=== PATIENT | male | born 1970 | race Caucasian/White ===

== ENCOUNTER 2018-03-26 07:34 | Outpatient (CLI) | payer MEDICARE ==
--- NOTE | 2018-03-26 10:09 | ULT ---
SONOGRAM ABDOMEN COMPLETE: Date: 03/26/18 HISTORY: Abdominal pain. Hepatomegaly. FINDINGS: Gallbladder is surgically absent. Common duct is 0.5 cm. Liver is diffusely echogenic and measures up to 27.3 cm. No free fluid. Spleen is 20.6 cm. Cysts arise from the cortex of the kidneys. Visualized portions of the abdominal aorta and IVC are un remarkable. Pancreas is partially obscured. IMPRESSION: 1. Hepatic steatosis. Hepatomegaly. 2. Severe splenomegaly may be related to portal venous hypertension. 3. Status post cholecystectomy. No evidence of acute biliary obstruction. POS: [facility]
== END 2018-03-26 07:35 | disposition home or self-care (01) ==
LOC: SCSULT 07:34
PROVIDERS: ATTEND Family Medicine
DX: R16.2 Hepatomegaly with splenomegaly, not elsewhere classified (principal); K76.0 Fatty (change of) liver, not elsewhere classified; Z90.49 Acquired absence of other specified parts of digestive tract
CPT/HCPCS: 76700

== ENCOUNTER 2019-01-03 10:04 | Outpatient (CLI) | payer MEDICARE, OTHER ==
--- NOTE | 2019-01-03 12:12 | ULT ---
SOFT TISSUE ULTRASOUND OF THE LEFT GROIN: HISTORY: Lymphadenopathy. COMPARISON: None. TECHNIQUE: Sagittal and transverse imaging of the left groin is performed. FINDINGS: There are multiple enlarged lymph nodes. The largest lymph node measures 2.4 x 0.8 a 1.9 cm. The se cond largest lymph node measures 1.5 x 1.6 x 1.6 cm. Additional smaller lymph nodes are noted. There is no evidence of an abscess or suspicious fluid collection. IMPRESSION: At least 4 separate left inguinal lymph nodes. The largest lymph node is described above. POS: [facility]
== END 2019-01-03 10:05 | disposition home or self-care (01) ==
LOC: SCSULT 10:04
PROVIDERS: ATTEND Internal Medicine Hematology & Oncology
DX: R59.0 Localized enlarged lymph nodes (principal); N18.9 Chronic kidney disease, unspecified; D63.1 Anemia in chronic kidney disease; D69.59 Other secondary thrombocytopenia
CPT/HCPCS: 76999

== ENCOUNTER 2019-01-22 11:38 | Outpatient (CLI) | payer MEDICARE, OTHER ==
[2019-01-22 12:06] LABS: #Eosinphils 0.1 thou/uL (0.0-0.7); #Lymphocytes 1.8 thou/uL (1.20-3.40); #Monocytes 0.5 thou/uL (0.11-0.59); #Neutrophils 4.3 thou/uL (1.40-6.50); %Basophils 0.7 % (0.0-1.0); %Eosinophils 1.7 % (0.0-10.0); %Lymphocytes 26.7 % (21.0-51.0); %Monocytes 7.4 % (0.0-10.0); %Neutrophils 63.5 % (42.0-75.0); Hemoglobin 11.5 g/dL (14.0-18.0); Mean Corpuscular HGB CONC 33.8 g/dL (32.0-36.0); Mean Corpuscular Hemoglobin 29.2 pg (27.0-31.0); Mean Corpuscular Volume 86.5 fL (78.0-98.0); Mean Platelet Volume 5.9 fL (7.4-10.4); Platelet Count 161 thou/uL (130-400); RBC Distribution Width 13.7 % (11.5-14.5); Red Blood Cell (RBC) Count 3.95 mill/uL (4.70-6.10); White Blood Cell (WBC) Count 6.7 thou/uL (4.8-10.8)
[2019-01-22 12:29] LABS: Anion Gap 10 mmol/L (10-20); BUN (Urea Nitrogen) 32 mg/dL (8.9-20.6); Calc. Creatinine Clearance 0 mL/min (70-130); Calcium 8.8 mg/dL (7.8-10.44); Carbon Dioxide 26 mmol/L (22-29); Chloride 107 mmol/L (98-107); Estimated GFR-MDRD 22; Glucose 82 mg/dL (70-105); Potassium 4.7 mmol/L (3.5-5.1); Sodium 138 mmol/L (136-145)
--- NOTE | 2019-01-22 18:46 | EKG ---
Test Reason : Blood Pressure : / mmHG Vent. Rate : 070 BPM Atrial Rate : 070 BPM P-R Int : 238 ms QRS Dur : 102 ms QT Int : 418 ms P-R-T Axes : 074 082 157 degrees QTc Int : 451 ms Sinus rhythm with 1st degree A-V block Inferior infarct (cited on or before 16-JUN-2009) Cannot rule out Anterior infarct , age undetermined Abnormal ECG When compared with ECG of 18-JUN-2009 02:34, Significant changes have occurred Confirmed by DR. Tanja ROBERTSON (3) on 01/22/2019 6:46:18 PM Referred By: SHAE Confirmed By:DR. Tanja ROBERTSON
== END 2019-01-22 11:39 | disposition home or self-care (01) ==
LOC: LABBT 11:38
PROVIDERS: ATTEND Specialist
DX: Z01.818 Encounter for other preprocedural examination (principal); R59.1 Generalized enlarged lymph nodes
CPT/HCPCS: 80048; 85025; 93005; 93010

== ENCOUNTER 2019-01-30 08:06 | Day surgery (SDC) | payer OTHER, MEDICARE ==
[2019-01-22 11:57] VITALS: BMI 41.5
[2019-01-30] MEDS ORDERED: Ketorolac Tromethamine 30 MG/ML VIAL ONE (08:57)
[2019-01-30] MEDS ORDERED: Bupivacaine/Epinephrine 0.25% 30 ML VIAL ONE (09:34)
[2019-01-30] MEDS ORDERED: Fentanyl 100 MCG/2 ML VIAL ONE (09:35)
[2019-01-30] MEDS ORDERED: Midazolam HCl 2 mg/2 ml Vial ONE (09:47)
[2019-01-30] MEDS ORDERED: PROPOFOL 200 MG/20 ML VIAL ONE (09:56)
[2019-01-30] MEDS ORDERED: PHENYLEPHRINE-NS 100 MCG/ML 10 ML SYRINGE ONE (09:56)
[2019-01-30] MEDS ORDERED: Ondansetron PF 4 MG/2 ML Vial ONE (09:56)
[2019-01-30] MEDS ORDERED: Glycopyrrolate 0.2 MG/ML 5 ML SYRINGE ONE (09:56)
[2019-01-30] MEDS ORDERED: HYDROcodone/Acetaminophen 5/325 mg Tablet ONE (12:12)
--- NOTE | 2019-01-31 02:09 | OP ---
DATE OF PROCEDURE: 01/30/2019 PREOPERATIVE DIAGNOSIS: Left inguinal lymphadenopathy. POSTOPERATIVE DIAGNOSIS: Left inguinal lymphadenopathy. OPERATION PERFORMED: Left groin ultrasound-guided excisional lymph node biopsy. ANESTHESIA: General with laryngeal mask airway and local using 0.25% Marcaine with epinephrine. INDICATIONS: The patient is a 48-year-old white male. He has a chronically swollen left leg following his coronary artery bypass surgery several years ago. He was recently evaluated and found to have significant inguinal lymphadenopathy. I was asked to evaluate him in regard to this. The patient is significantly obese, so palpation is difficult. I am, however, with ultrasound able to see a superficial lymph node just below the inguinal crease that is close to 5 cm in maximum dimension. I recommended excisional biopsy of this. DESCRIPTION OF OPERATION: Informed consent was obtained. The patient was taken to the operating room where general anesthesia was obtained with the patient in supine position. His abdomen was taped up to hold the pannus off the operative site. Right groin was trimmed of hair, prepped with ChloraPrep, draped in sterile fashion. Ultrasound was utilized to exactly maeve the location of the enlarged lymph node. Local anesthetic was generously infiltrated using 0.25% Marcaine with epinephrine. A transverse incision was created over the enlarged lymph node. Dissection was carried through the skin and subcutaneous tissue directly down onto the lymph node. It was carefully dissected circumferentially. All investing lymphatics were divided between clamps and 3-0 silk ties. The lymph node was removed and passed off the field and submitted for lymphoma protocol. The wound was closed in layers with 3-0 Vicryl. Skin edges were approximated with 4-0 subcuticular Monocryl. Dermabond was placed externally. There were no complications. The patient tolerated the procedure well and was taken to the recovery room in stable condition. Job ID: [id number]
== END 2019-01-30 12:39 | disposition home or self-care (01) ==
LOC: SDC 08:06
PROVIDERS: ATTEND Specialist
PROC: 07BJ3ZX Excision of Left Inguinal Lymphatic, Percutaneous Approach, Diagnostic (ICD-10-PCS; principal; 2019-01-30)
DX: R59.0 Localized enlarged lymph nodes (principal); I11.0 Hypertensive heart disease with heart failure; I50.9 Heart failure, unspecified; I25.10 Atherosclerotic heart disease of native coronary artery without angina pectoris; E78.2 Mixed hyperlipidemia; Z79.82 Long term (current) use of aspirin; Z79.899 Other long term (current) drug therapy; Z88.2 Allergy status to sulfonamides; Z88.5 Allergy status to narcotic agent; Z88.8 Allergy status to other drugs, medicaments and biological substances; Z95.1 Presence of aortocoronary bypass graft
CPT/HCPCS: 88184; 88307; 88341; 88342; J0131; J1885; J2250; J3010

== ENCOUNTER 2019-02-13 10:27 | Day surgery (SDC) | payer OTHER, MEDICARE ==
[2019-02-12 10:41] VITALS: BMI 40.0
[2019-02-13] MEDS ORDERED: Lidocaine 1% PF 5 ML VIAL ONE (11:49)
[2019-02-13] MEDS ORDERED: PROPOFOL 200 MG/20 ML VIAL ONE (11:49)
[2019-02-13] MEDS ORDERED: Oxymetazoline HCl 0.05% ( 15 ML ) ONE (12:32)
[2019-02-13 13:15] LABS: Troponin I 0.043 ng/mL (< 0.028)
--- NOTE | 2019-02-13 13:47 | OP ---
DATE OF PROCEDURE: 02/13/2019 PLY BANDER SURGEON: None. PROCEDURES PERFORMED: Colonoscopy with biopsies and snare polypectomy. INDICATION: Rectal bleeding. This is the patient's first colonoscopy. MEDICATIONS: See Anesthesia record. FINDINGS: After discussion of the risks, benefits, and alternatives of the procedure, informed consent was obtained and witnessed. Pre-endoscopic cardiopulmonary examination was satisfactory. Time-out was performed before sedation was achieved. Sedation was achieved with Anesthesia assistance in the endoscopy unit. A digital rectal exam was performed, which was unremarkable. Pentax adult colonoscope was inserted into the anus and passed forward to the cecum in the usual fashion. The cecal base was identified by the appendiceal orifice as well as the ileocecal valve. The terminal ileum was intubated. Within the terminal ileum. There were several patches of mild erythema and a single small nonbleeding erosion. Biopsies were obtained from this area of the terminal ileum for histology. The colonoscope was then slowly withdrawn in a gradual circumferential manner with careful examination of the entire colonic mucosa. The quality of the prep was adequate. There was some diffuse diverticulosis throughout the colon, particularly in the ascending colon and the sigmoid colon. Within the sigmoid colon, there is some patchy [id number] erythema with no evidence of any ulcerations or erosions, and an area of heavy diverticulosis. I did obtain biopsies from this area of the sigmoid colon for histology. In the ascending colon, there is a single polyp measuring about 1 cm in diameter. This was completely removed with hot snare and retrieved for pathology. There was another smaller ascending colon polyp measuring about 7 mm in diameter, which was also completely removed with hot snare and retrieved for pathology. In the descending colon, there was a sessile polyp measuring about 5 mm in diameter, completely removed with hot snare and retrieved for pathology. In the sigmoid colon, there was another polyp measuring about 4 mm in diameter, and this was also completely removed with hot snare and retrieved for pathology. Retroflexion in the rectum demonstrated internal hemorrhoids. The colonoscope was then completely withdrawn, and the patient allowed to recover. The patient tolerated the procedure well. There were no immediate postprocedure complications. IMPRESSION: 1. Mild patchy erythema in the terminal ileum, biopsied. 2. Mild patchy sigmoid colon erythema, biopsied. 3. Diverticulosis throughout the colon, particularly heavy in the sigmoid colon. 4. Two ascending colon polyps measuring up to 1 cm in diameter, completely removed with hot snare and retrieved for pathology. 5. One descending colon polyp measuring about 7 mm in diameter, completely removed with hot snare and retrieved for pathology. 6. One sigmoid colon polyp measuring 4 mm in diameter, completely removed with hot snare and retrieved for pathology. 7. Internal hemorrhoids. RECOMMENDATION: 1. Follow up pathology on the colon polyps as well as terminal ileum sigmoid biopsies. 2. Repeat colonoscopy to be determined based on pathology results. 3. The patient can resume his Plavix tomorrow. 4. Conservative hemorrhoidal measures including a stool softeners as needed. His intermittent rectal bleeding does represent a bleeding from internal hemorrhoids. 5. He can follow up in the GI clinic on an as-needed basis. Job ID: [id number]
[2019-02-13 14:48] LABS: CKMB 2.7 ng/mL (0-6.6)
--- NOTE | 2019-02-13 21:29 | EKG ---
Test Reason : CHEST PAIN Blood Pressure : / mmHG Vent. Rate : 075 BPM Atrial Rate : 075 BPM P-R Int : 256 ms QRS Dur : 100 ms QT Int : 410 ms P-R-T Axes : 073 020 128 degrees QTc Int : 457 ms Sinus rhythm with 1st degree A-V block Inferior infarct (cited on or before 16-JUN-2009) T wave abnormality, consider lateral ischemia * ACUTE HI * Consider right ventricular involvement in acute inferior infarct Abnormal ECG When compared with ECG of 22-JAN-2019 11:45, Questionable change in QRS axis T wave inversion no longer evident in Inferior leads T wave inversion no longer evident in Anterior leads Confirmed by KEIRA MACKAY, DR. Kaur (4) on 02/13/2019 9:28:45 PM Referred By: CASE Confirmed By:DR. Vincent CROCKETT MD
--- NOTE | 2019-02-13 21:31 | EKG ---
Test Reason : REPEAT Blood Pressure : / mmHG Vent. Rate : 072 BPM Atrial Rate : 072 BPM P-R Int : 266 ms QRS Dur : 104 ms QT Int : 422 ms P-R-T Axes : 076 030 133 degrees QTc Int : 462 ms Sinus rhythm with 1st degree A-V block Inferior infarct (cited on or before 16-JUN-2009) T wave abnormality, consider lateral ischemia * ACUTE AL * Consider right ventricular involvement in acute inferior infarct Abnormal ECG When compared with ECG of 13-FEB-2019 12:38, (Unconfirmed) No significant change was found Confirmed by KEIRA MACKAY, DR. Kaur (4) on 02/13/2019 9:30:28 PM Referred By: Laura WEBSTER Confirmed By:DR. Vincent CROCKETT MD
== END 2019-02-13 15:13 | disposition home or self-care (01) ==
LOC: SDC 10:27
PROVIDERS: ATTEND Internal Medicine
PROC: 0DBN8ZX Excision of Sigmoid Colon, Via Natural or Artificial Opening Endoscopic, Diagnostic (ICD-10-PCS; principal; 2019-02-13)
PROC: 0DBK8ZX Excision of Ascending Colon, Via Natural or Artificial Opening Endoscopic, Diagnostic (ICD-10-PCS; principal; 2019-02-13)
PROC: 0DBM8ZX Excision of Descending Colon, Via Natural or Artificial Opening Endoscopic, Diagnostic (ICD-10-PCS; principal; 2019-02-13)
PROC: 0DBB8ZX Excision of Ileum, Via Natural or Artificial Opening Endoscopic, Diagnostic (ICD-10-PCS; principal; 2019-02-13)
DX: K64.8 Other hemorrhoids (principal); D12.2 Benign neoplasm of ascending colon; D12.4 Benign neoplasm of descending colon; K52.9 Noninfective gastroenteritis and colitis, unspecified; K63.5 Polyp of colon; K57.30 Diverticulosis of large intestine without perforation or abscess without bleeding; I13.0 Hypertensive heart and chronic kidney disease with heart failure and stage 1 through stage 4 chronic kidney disease, or unspecified chronic kidney disease; N18.9 Chronic kidney disease, unspecified; I50.9 Heart failure, unspecified; I25.10 Atherosclerotic heart disease of native coronary artery without angina pectoris; I25.2 Old myocardial infarction; E78.00 Pure hypercholesterolemia, unspecified; M19.90 Unspecified osteoarthritis, unspecified site; F17.210 Nicotine dependence, cigarettes, uncomplicated; E66.9 Obesity, unspecified; Z68.41 Body mass index [BMI] 40.0-44.9, adult; G47.33 Obstructive sleep apnea (adult) (pediatric); Z80.0 Family history of malignant neoplasm of digestive organs; Z90.49 Acquired absence of other specified parts of digestive tract; Z95.1 Presence of aortocoronary bypass graft; Z88.5 Allergy status to narcotic agent; Z88.0 Allergy status to penicillin; Z88.2 Allergy status to sulfonamides; Z88.8 Allergy status to other drugs, medicaments and biological substances; Z79.02 Long term (current) use of antithrombotics/antiplatelets; Z79.82 Long term (current) use of aspirin; Z79.899 Other long term (current) drug therapy
CPT/HCPCS: 36415; 82553; 84484; 88305; 93005; 93010; J2001; J2704

== ENCOUNTER 2019-02-24 08:57 | Outpatient (CLI) | payer OTHER, MEDICARE ==
--- NOTE | 2019-02-24 13:21 | CT ---
Noncontrast enhanced images abdomen and pelvis. HISTORY: Gross hematuria. Noncontrast enhanced CT images of the abdomen and pelvis demonstrate the lung bases to be unremarkabl e. Extensive coronary artery calcifications seen. Sternotomy wires seen. The the liver demonstrates no definite evidence of masses. There is splenomegaly seen. The spleen has three-dimensional measurements of 10.6 x 17.6 x 19.3 cm. The pancreas is unremarkable. Adrenal glands unremarkable. Multiple bilateral renal exophytic lesion seen possibly presenting cortical cysts. The patient does a ppear to be have a midpole right renal hyperdense cyst. Correlate with renal sonography for additional characterization of both kidneys. The small bowel is unremarkable. Extensive colonic diverticulosis is present. There is an umbilical hernia with herniation of intraperitoneal fat. This has a hernial defect size o f approximately 13 mm. Urinary bladder is thickened concerning for possible cystitis. IMPRESSION: 1: Splenomegaly. 2: Numerous renal cortical lesions possibly representing cysts further workup using sonography is how ever recommended. 3: Abnormal thickening of the urinary bladder concerning for cystitis. 4:Extensive colonic diverticulosis.
== END 2019-02-24 08:58 | disposition home or self-care (01) ==
LOC: SCSCT 08:57
PROVIDERS: ATTEND Urology
DX: R31.0 Gross hematuria (principal); R16.1 Splenomegaly, not elsewhere classified; K57.30 Diverticulosis of large intestine without perforation or abscess without bleeding
CPT/HCPCS: 74176

== ENCOUNTER 2019-04-09 07:54 | Outpatient (CLI) | payer MEDICARE, OTHER ==
--- NOTE | 2019-04-09 10:06 | ULT ---
RENAL ULTRASOUND: Date: 04-09-19 Provided Clinical History: Gross hematuria, renal lesion. FINDINGS: Comparison is made with CDT examination of 02-24-19. Right kidney measures about 12.8 x 6.6 x 6.7 cm and demonstrates no evidence for hydronephrosis or so lid mass. Simple appearing cysts are seen, the largest of which measures about 2 cm at the mid portio n. Left kidney measures about 12.8 x 7.8 x 7.1 cm and demonstrates no evidence for hydronephrosis or chiquita id mass. Simple cysts are seen, the largest of which is located at the mid portion of the left kidney , exophytically measures about 2.9 cm. Foci of increased echogenicity are seen involving the renal parenchyma bilaterally, nonspecific. No r enal calculi redemonstrated from the prior CT examination. The urinary bladder is incompletely distended and not well evaluated with suggestion of bladder wall thickening. IMPRESSION: 1. No evidence for hydronephrosis or solid mass. POS: [facility]
== END 2019-04-09 07:55 | disposition home or self-care (01) ==
LOC: SCSULT 07:54
PROVIDERS: ATTEND Urology
DX: N28.9 Disorder of kidney and ureter, unspecified (principal); R31.0 Gross hematuria
CPT/HCPCS: 76770

== ENCOUNTER 2019-04-14 17:51 | Inpatient (IN) | payer OTHER, MEDICARE ==
[2019-04-14 18:48] LABS: #Eosinphils 0.1 thou/uL (0.0-0.7); #Lymphocytes 1.2 thou/uL (1.20-3.40); #Monocytes 0.5 thou/uL (0.11-0.59); #Neutrophils 5.9 thou/uL (1.40-6.50); %Eosinophils 0.8 % (0.0-10.0); %Lymphocytes 15.4 % (21.0-51.0); %Monocytes 6.1 % (0.0-10.0); %Neutrophils 77.7 % (42.0-75.0); Hemoglobin 8.7 g/dL (14.0-18.0); Mean Corpuscular HGB CONC 32.6 g/dL (32.0-36.0); Mean Corpuscular Hemoglobin 27.7 pg (27.0-31.0); Mean Platelet Volume 6.8 fL (7.4-10.4); Platelet Count 186 thou/uL (130-400); RBC Distribution Width 13.8 % (11.5-14.5); Red Blood Cell (RBC) Count 3.16 mill/uL (4.70-6.10); White Blood Cell (WBC) Count 7.5 thou/uL (4.8-10.8)
[2019-04-14 19:11] LABS: ALT (SGPT) 7 U/L (8-55); AST (SGOT) 9 U/L (5-34); Albumin 2.9 g/dL (3.5-5.0); Alkaline Phosphatase 37 U/L (40-150); Anion Gap 13 mmol/L (10-20); BUN (Urea Nitrogen) 63 mg/dL (8.9-20.6); Bilirubin, Total 0.4 mg/dL (0.2-1.2); Calc. Creatinine Clearance 0 mL/min (70-130); Calcium 8.6 mg/dL (7.8-10.44); Carbon Dioxide 23 mmol/L (22-29); Chloride 99 mmol/L (98-107); Estimated GFR-MDRD 11; Globulin 3.3 g/dL (2.4-3.5); Glucose 123 mg/dL (70-105); Lipase 26 U/L (8-78); Potassium 4.1 mmol/L (3.5-5.1); Protein, Total 6.2 g/dL (6.0-8.3); Sodium 131 mmol/L (136-145)
[2019-04-14 20:26] LABS: Bilirubin Negative (Negative); Blood, Urine Negative (Negative); Clarity CLOUDY (Clear); Glucose, Urine (Dipstick) Negative (Negative); Leukocyte Negative (Negative); Nitrite Negative (Negative); Protein, Urine (Dipstick) 100 mg/dL (Neg-Trace); Specific Gravity, Urine 1.013 (1.002-1.036)
[2019-04-14 20:29] LABS: Bacteria/HPF None Seen HPF (None Seen); Hyaline Casts/LPF 4-6 HYALINE CAST LPF (0-3 Hyaline); Pathc Cast-AUWi Flag 0.95 (0-2.49); RBC/HPF None Seen HPF (0-3); Squamous Epithelial 0-3 HPF (0-3); WBC/HPF 0-3 HPF (0-3); Yeast-AUWi Flag 117.5 (0-25.0)
[2019-04-14 20:36] LABS: Crystals/HPF 1+ AMORPH URATES HPF (Negative); Yeast-All Forms None Seen HPF (None Seen)
[2019-04-14] MEDS ORDERED: Sodium Chloride 0.9% 1,000 ML IV SCH (22:30)
--- NOTE | 2019-04-15 02:17 | HP ---
HISTORY OF PRESENT ILLNESS: This is a 48-year-old obese male who is blind, who presents with a 2-week history of nausea, vomiting, and diarrhea, which has become particularly worse over the past 4-5 days. He has had very minimal intake. Lately, he has been having quite a bit of nausea and vomiting. Food goes straight through him as reported by the . He is not tolerating any Boost or Gatorade. He saw Dr. Donte Negron this morning and obtained labs, which revealed marked anemia with worsening creatinine. So, he was seen in the ER this evening and his creatinine went even higher. He has been followed by Dr. Blanco for BPH. He has had cystoscopy this year, which has been unremarkable. He has also had a colonoscopy earlier this year in February, which showed some areas of erythema. The patient complains of diffuse abdominal crampiness. No reported fever. There are no other ill family members in the family. PAST MEDICAL HISTORY: Multiple sclerosis, heart disease, status post [place], blindness, headaches, hypertension, hyperlipidemia, and asthma. PAST SURGICAL HISTORY: Exploratory throat surgery in 1997. Cardiac stents x3 in 2004, triple bypass in August 2000, colonoscopy on February 13, 2019, gallbladder surgery 2014, lymph node biopsy by Dr. Mckeon earlier this year. FAMILY HISTORY: Father with heart disease and prostate cancer. Mother with heart disease and thyroid disease. Multiple other family members with heart disease, hyperlipidemia, and hypertension. SOCIAL HISTORY: He has a 30-year tobacco history. He has smoked 1 pack per day. I believe he continues to smoke. He does not drink. He is single. He has children. MEDICATIONS: Aspirin 325 daily, fenofibrate 145 daily, Coreg 25 two tabs b.i.d., allopurinol 100 daily, amlodipine 5 daily, Plavix 75 daily, lisinopril 40 daily, Lyrica 150 t.i.d., Crestor 20 daily, Flexeril 10 p.r.n., Lasix 40 daily, and potassium 20 daily. ALLERGIES: SULFA, MORPHINE, AND PENICILLIN. REVIEW OF SYSTEMS: As above. PHYSICAL EXAMINATION: VITAL SIGNS: Stable, afebrile at this time. GENERAL: The patient has moderate abdominal tenderness. HEENT: Relatively clear except the patient is blind. NECK: Supple. HEART: Regular rate and rhythm. LUNGS: Clear. ABDOMEN: Morbidly obese. EXTREMITIES: Left leg with stasis dermatitis from his vein harvesting for bypass. Right lower extremity normal. No edema. LABORATORY DATA: White count 7.5, H and H 8.7 and 26.8, platelet 186. Sodium 131, potassium 4.1, creatinine 5.69, glucose 123, BUN is 63. Liver functions normal. Lipase 26. Albumin 2.9. Urine specific gravity 1.013, positive for proteins. Renal ultrasound unremarkable on 04/09/2019. Abdominal pelvic CT relatively benign on 02/24/2019. ASSESSMENT: 1. Acute gastroenteritis. 2. Severe dehydration. 3. Acute kidney disease on chronic kidney disease. 4. Blindness. 5. Anemia, probably anemia of chronic disease. 6. Coronary artery disease status post bypass. 7. 30 year tobacco history. PLAN: 1. Hydrate with normal saline. 2. Consult Nephrology in the a.m. 3. Dr. Donte Negron to see in the a.m. 4. CBC, comprehensive in the a.m. 5. 50/12.5 IM q.4h. p.r.n. abdominal pain. 6. Clear liquids. 7. Stool culture, O and P. 8. Recheck labs in the a.m. Job ID: [id number]
[2019-04-15 04:02] LABS: #Eosinphils 0.2 thou/uL (0.0-0.7); #Lymphocytes 1.3 thou/uL (1.20-3.40); #Monocytes 0.7 thou/uL (0.11-0.59); #Neutrophils 6.9 thou/uL (1.40-6.50); %Basophils 0.3 % (0.0-1.0); %Lymphocytes 13.8 % (21.0-51.0); %Monocytes 7.3 % (0.0-10.0); %Neutrophils 76.5 % (42.0-75.0); Hemoglobin 8.9 g/dL (14.0-18.0); Mean Corpuscular HGB CONC 32.9 g/dL (32.0-36.0); Mean Corpuscular Volume 85.1 fL (78.0-98.0); Mean Platelet Volume 7.3 fL (7.4-10.4); Platelet Count 227 thou/uL (130-400); Red Blood Cell (RBC) Count 3.16 mill/uL (4.70-6.10)
[2019-04-15 04:23] LABS: ALT (SGPT) Less than 7 U/L (8-55); AST (SGOT) 9 U/L (5-34); Alkaline Phosphatase 38 U/L (40-150); Anion Gap 16 mmol/L (10-20); BUN (Urea Nitrogen) 64 mg/dL (8.9-20.6); Bilirubin, Total 0.4 mg/dL (0.2-1.2); Calc. Creatinine Clearance 0 mL/min (70-130); Calcium 8.6 mg/dL (7.8-10.44); Carbon Dioxide 18 mmol/L (22-29); Chloride 101 mmol/L (98-107); Estimated GFR-MDRD 11; Globulin 3.4 g/dL (2.4-3.5); Glucose 94 mg/dL (70-105); Protein, Total 6.4 g/dL (6.0-8.3); Sodium 131 mmol/L (136-145)
[2019-04-15] MEDS ORDERED: Sodium Chloride 0.9% 10 ML ONE (09:48)
[2019-04-15] MEDS: Amlodipine 5 MG TAB PO SCH (10:08)
[2019-04-15] MEDS: Atorvastatin Calcium 10 MG TAB PO SCH (10:08)
[2019-04-15] MEDS: Carvedilol 25 MG TAB PO SCH ×2 (10:09→20:26)
[2019-04-15] MEDS: Enoxaparin Sodium 30 MG/0.3 ML SYRINGE SC SCH ×2 (11:22→11:23)
[2019-04-15] MEDS: Pantoprazole 40 MG VIAL IVP SCH ×2 (11:23→20:28)
[2019-04-15] MEDS: Sodium Chloride 0.9% 1,000 ML IV SCH ×3 (11:23→21:31)
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
[2019-04-15] MEDS: HYDROcodone/Acetaminophen 7.5/325 mg Tablet PO PRN ×2 (13:26→18:13)
[2019-04-15] MEDS: Acetaminophen 325 MG TAB PO PRN ×2 (13:27→18:13)
[2019-04-15 17:49] VITALS: BMI 36.9
--- NOTE | 2019-04-15 19:31 | PRG ---
DATE OF SERVICE: 04/15/2019 SUBJECTIVE: Mr. Chacon is sitting up in bed eating, although he professes to be in pain by the nurses. He looks fairly comfortable to my eyes. OBJECTIVE: VITAL SIGNS: Temperature 97.4 and BP 104/57. LUNGS: Bilateral breath sounds. HEART: Reveals a regular rate and rhythm. No murmurs, gallops, or rubs. ABDOMEN: Diffusely tender without evidence of rebound or guarding. EXTREMITIES: Show 2+ edema bilaterally. LABORATORY DATA: Hemoglobin 8.9 and hematocrit 26.9. Sodium 131, potassium 4.0, chloride 101, CO2 of 18, BUN 64, and creatinine 5.57. IMPRESSION: 1. Acute renal injury. 2. Splenomegaly on previous CT scan of unknown etiology. Previous CT scan did not show any appreciable ascites, although I am somewhat suspicious he may have some subtle ascites issues at this time for previous history of atherosclerotic coronary artery disease. PLAN: 1. He is on IV fluids. We will continue that was under the guidance of Renal consult. 2. Obtain GI consult due to recent history of nausea and vomiting, which possibly could have exacerbated his renal insufficiency, although this seems to be improved at this time. I still wonder if he has some ascitic issues causing further abdominal pain. Pain control will be managed by a pain management consult. Job ID: [id number]
[2019-04-15] MEDS: Promethazine HCl 25 MG/ML VIAL IM PRN (20:36)
[2019-04-15] MEDS: traMADol HCl 50 MG TAB PO PRN (20:38)
[2019-04-15] MEDS: Heparin 5,000 UNITS/ML VIAL SC SCH (21:30)
[2019-04-15] MEDS: Clotrimazole/Betamethasone Cream 45 GM TUBE TOP SCH (21:35)
[2019-04-16] MEDS: HYDROcodone/Acetaminophen 7.5/325 mg Tablet PO PRN ×4 (02:44→20:56)
[2019-04-16] MEDS: Promethazine HCl 25 MG/ML VIAL IM PRN ×4 (02:47→20:57)
--- NOTE | 2019-04-16 02:56 | CON ---
DATE OF CONSULTATION: REASON FOR CONSULTATION: Abdominal pain, nausea, vomiting, diarrhea. HISTORY OF PRESENT ILLNESS: Mr. Chacon is a 48-year-old gentleman who was admitted to the hospital yesterday from clinic. He has multiple medical problems, and recently in February had been seen by Dr. Page, my partner, for rectal bleeding, possibly mild anemia underwent a lower endoscopy at that time which was notable for some polyps and some hemorrhoids. There was one area in the descending colon with mild inflammation and one area in the ileum with mild inflammation endoscopically. The ileal biopsy, however was normal. The colon biopsy showed some focal active colitis with no evidence of chronic colitis, so possibly this is related to medications or prep artifact. The patient does say that he was not having the problems he is having now, then. In the past couple of weeks, maybe 3, he has had intermittent loose stools, which seem to get really bad at times and then will kind of get better. When it all started, he thought it was just a stomach bug, but it never really got all the way better. He has had vomiting at times as well. He has had no hematemesis, melena, hematochezia. Last weekend he had several episodes of diarrhea, but then it calmed down. At times when he eats, he gets abdominal pain and feels he can't really hold things down and wants to vomit. He notes no antecedent medication change, antecedent antibiotics. He had lately in the past 4 to 5 days about 3 stools a day, some are formed, , some are very watery. His reports that when he eats sometimes, whatever he eats tends to go right through him. He was not able to tolerate Boost or Gatorade. He is taking some Pepto-Bismol and some [place], but this was not helping. He saw his PCP, Dr. Negron yesterday, labs showed anemia, worsening creatinine, and therefore he is admitted to the hospital. Earlier this year, he had been seen by Dr. Blanco for BPH and a cystoscopy. Otherwise, there have been no recent medical issues. PAST MEDICAL HISTORY: Multiple sclerosis, blindness, coronary artery disease, previous IA, headaches, hypertension, hyperlipidemia, asthma, morbid obesity. PAST SURGICAL HISTORY: Exploratory throat surgery in 1997, cardiac stents x3 in 2004, triple bypass in 1999, colonoscopy in 02/13/2019, cholecystectomy in 2014, lymph node biopsy this year for a large inguinal node, which came back normal. FAMILY HISTORY: Prostate cancer in father. Mother with heart disease and thyroid disease. No family history of GI malignancies. SOCIAL HISTORY: The patient smokes a pack per day, continues to do so. He does not drink alcohol. He is single. He does have children. MEDICATIONS: Aspirin, fenofibrate, Coreg 25 b.i.d., allopurinol, amlodipine, Plavix 75 mg daily, lisinopril 40 mg daily, Lyrica 150 t.i.d., Crestor 10 mg a day, Flexeril, Lasix 40 mg a day, with potassium 20 mEq per day. ALLERGIES: SULFA, MORPHINE, AND PENICILLIN. REVIEW OF SYSTEMS: Negative for dysphagia or odynophagia. Positive for diffuse abdominal pain with cramping at times when he eats, seems to be worse in the right than the left. He denies any fever or chills. He has had sweats at times and felt hot, cold at different times. He denies any cough or shortness of breath. He reports he can't lie down on the stomach, it makes him winded. He has chronic edema in the left leg since his heart surgery. PRESENT MEDICATIONS: Tylenol, Norvasc, Lipitor, Lotrisone cream, Coreg, Lovenox, Armstrong, Zofran, Protonix, Phenergan, normal saline 125 an hour. PHYSICAL EXAMINATION: GENERAL: The patient is sitting in bed. His significant other is at bedside. VITAL SIGNS: Temperature is 97.8, pulse 68, blood pressure is 112/67. He was 105/55 earlier today, 104/57 yesterday. He is overweight, sitting up in bed. HEENT: Conjunctivae and sclerae are clear. LUNGS: Clear except for wheezing in the bases. HEART: Regular rate and rhythm. ABDOMEN: Tender, more so on the right than the left. He has umbilical hernia which is reducible, nontender. Bowel sounds are positive. He has a significant pannus with anasarca, edema there. He has edema in his legs bilaterally but left much greater than right. There is a scar on his right leg from previous vein harvest. LABORATORY STUDIES: White count is 9, 7.6 yesterday; hemoglobin is 8.9, it was 9 yesterday, 11.5 01/22/2019; MCV is 85, platelet count is 273. BUN and creatinine are 64 and 5.57. Urinalysis reveals protein. Hepatitis panel in December was negative. Hepatitis C was negative in December as well. Sodium 131, potassium 4, BUN and creatinine are 64 and 5.75 down from 5.69 yesterday. Liver function tests normal. Total protein 6.4, albumin is 3. TSH was 2.6 in December of this year. ASSESSMENT: 1. This is a 48-year-old gentleman with complaints of nausea, vomiting, diarrhea, is fairly nonspecific, it has been over the past 2 to 3 weeks. Initially, he thought this was acute infection, but has not been quite consistent with infectious gastroenteritis and even now he does not think that is what the cause has been. He has had no overt bleeding. He has had no overt fever here or leukocytosis. He has complained of abdominal pain, more on the right than the left. He did have a CAT scan on 02/24/2019 for stone protocol, that showed some splenomegaly, renal cysts, gallbladder thickening that was part of his renal workup as described before in his HPI. On 04/09/2019, renal ultrasound showed no evidence of hydronephrosis, renal mass. He saw Dr. Blanco as well. As far as abdominal pain, he has a benign abdomen at this time, but differential diagnosis could include liver edema cannot rule out the possibility of ascites being present, gastritis could be causing this, ischemia could cause it, and he smokes, has history of vascular disease. Severe dehydration with uremia may be causing it. A recent colonoscopy which was normal except for some mild inflammation in the ileum, which was not present on biopsies and some sigmoid which could have been ischemic or more likely it was prep artifact. 2. Worsening renal failure. It is unclear if this is prerenal or related to poor p.o. intake. It may be related to an LAZARUS inhibitor or other etiologies. 3. Vascular disease. Cardiac otherwise. RECOMMENDATIONS: 1. Agree with the PPI q.12 hours. We will get a CAT scan, noncontrast, to make sure we are not missing anything in the abdomen in terms of ascites. 2. With regard to his medications with his creatinine as high as it is, we probably need to hold off the Lovenox right now, sobering up the bleeding and move to renal dose heparin. We will order imaging for tomorrow morning. Dr. Page will return tomorrow and follow up from a GI standpoint. If he has diarrhea, we are going to order some stool studies as well. Job ID: [id number]
[2019-04-16 04:54] LABS: #Eosinphils 0.1 thou/uL (0.0-0.7); #Monocytes 0.6 thou/uL (0.11-0.59); #Neutrophils 5.6 thou/uL (1.40-6.50); %Basophils 0.1 % (0.0-1.0); %Eosinophils 1.3 % (0.0-10.0); %Monocytes 8.5 % (0.0-10.0); %Neutrophils 76.1 % (42.0-75.0); Hemoglobin 9.4 g/dL (14.0-18.0); Mean Corpuscular HGB CONC 32.7 g/dL (32.0-36.0); Mean Corpuscular Hemoglobin 28.3 pg (27.0-31.0); Mean Corpuscular Volume 86.6 fL (78.0-98.0); Mean Platelet Volume 6.5 fL (7.4-10.4); Platelet Count 214 thou/uL (130-400); RBC Distribution Width 14.1 % (11.5-14.5); Red Blood Cell (RBC) Count 3.31 mill/uL (4.70-6.10); White Blood Cell (WBC) Count 7.3 thou/uL (4.8-10.8)
[2019-04-16 05:13] LABS: Anion Gap 14 mmol/L (10-20); BUN (Urea Nitrogen) 68 mg/dL (8.9-20.6); Calc. Creatinine Clearance 25 mL/min (70-130); Calcium 8.4 mg/dL (7.8-10.44); Carbon Dioxide 18 mmol/L (22-29); Chloride 105 mmol/L (98-107); Estimated GFR-MDRD 11; Glucose 92 mg/dL (70-105); Potassium 4.5 mmol/L (3.5-5.1); Sodium 132 mmol/L (136-145)
[2019-04-16] MEDS: Sodium Chloride 0.9% 1,000 ML IV SCH ×2 (05:52→21:01)
[2019-04-16] MEDS ORDERED: Albumin 25% 25 GM/100 ML BOT IVPB ONE (09:16)
--- NOTE | 2019-04-16 09:47 | PRG ---
DATE OF SERVICE: 04/16/2019 SUBJECTIVE: Mr. Chacon is a 48-year-old white male, who was initially admitted due to the worsening renal dysfunction. He did have history of nausea, vomiting, and diarrhea. CT scan abdomen has been ordered, but is currently pending. We are following up this patient for his acute kidney injury. Initially, the feeling of this was hemodynamically-mediated renal dysfunction. He is complaining of some abdominal pain this morning. He is passing blood per rectum. No complaints of chest pain or shortness of breath. OBJECTIVE: VITAL SIGNS: Blood pressure 108/60, heart rate 69, respiratory rate 16, temperature 97.6, and pulse ox 96%. GENERAL: Noted to be awake, sitting comfortable. Decreased visual acuity. Morbidly obese. SKIN: Adequate turgor. HEENT: Slightly pale conjunctivae. Anicteric sclerae. No neck mass. No carotid bruits. No JVD. CHEST: No deformities. LUNGS: Clear breath sounds. HEART: Normal sinus rhythm. No murmurs, gallops, or rubs. ABDOMEN: Globular, soft, and nontender. No masses. EXTREMITIES: No edema. No deformities. MEDICATIONS: Medications of April 16, 2019, reviewed. LABORATORY DATA: Laboratories of April 16, 2019: Sodium 132, potassium 4.5, chloride 105, carbon dioxide 18, BUN 68, creatinine 5.64, GFR 11 mL/minute, glucose 92, and calcium 8.4. ASSESSMENT AND PLAN: 1. Acute kidney injury - consider hemodynamically-mediated renal dysfunction. Continue IV hydration. Currently, on normal saline. We would add albumin 25 g IV q.6 for 4 doses. 2. Anemia, stable. 3. Melena/hematochezia - CT scan of the abdomen and pelvis has been ordered. Considering GI consult. Agree with current management. Continue to hold off any LAZARUS inhibitors or diuretics. Job ID: [id number] [facility]
[2019-04-16] MEDS: Carvedilol 25 MG TAB PO SCH ×2 (09:52→20:56)
[2019-04-16] MEDS: Amlodipine 5 MG TAB PO SCH (09:53)
[2019-04-16] MEDS: Atorvastatin Calcium 10 MG TAB PO SCH (09:53)
[2019-04-16] MEDS: Heparin 5,000 UNITS/ML VIAL SC SCH ×2 (09:53→21:01)
[2019-04-16] MEDS: Pantoprazole 40 MG VIAL IVP SCH ×2 (10:09→20:56)
[2019-04-16] MEDS: Clotrimazole/Betamethasone Cream 45 GM TUBE TOP SCH ×2 (10:09→21:01)
[2019-04-16] MEDS: Albumin 25% 25 GM/100 ML BOT IVPB SCH ×3 (10:46→23:27)
--- NOTE | 2019-04-16 11:21 | CT ---
CT ABDOMEN NONCONTRAST CT PELVIS NONCONTRAST: Date: 04/16/19 Time: 0830 hours HISTORY: 48-year-old male with generalized abdominal pain, nausea, vomiting, and diarrhea. COMPARISON: 02/24/19. TECHNIQUE: IV injection of iodinated contrast media: none Oral contrast media: administered FINDINGS: Lack of IV contrast limits the evaluation. Broad plate-like regions of subsegmental atelectasis abutting the posterior basilar pleural surfaces at the lower lobes bilaterally. Tiny right pleural effusion. Splenomegaly. Surgical clip at gallbladd er fossa. Absent gallbladder. Hepatomegaly. New finding of an approximately 3.5 x 6 x 12.5 cm moderat abhijit low attenuation mass (14 HU) broadly abutting the left lobe of the liver and the proximal stomach . Several small exophytic masses protruding from the left renal cortical surface, at least some of wh ich are cysts, incompletely imaged, and mentioned on the prior study. No hydronephrosis. No renal, ur eteral, or bladder calculus. Bladder wall thickness is more normal on the current CT than prior. Large number of diverticula throughout the entire colon, including ascending, transverse, descending, and especially sigmoid, colon. Large region of edema throughout the lower portion of the abdominal cavity. Unorganized moderately la rge patch of fluid surrounding some small bowel loops in the lower portion of the abdominal cavity. The edema spills over into the subcutaneous fat of the lower abdominal wall pannus. Although the appendix has material within its lumen, perhaps representing stool, and has mild wall th ickening, it also contains extensive gas throughout its lumen, and therefore this is unlikely to repr esent appendicitis. No abdominal aortic aneurysm. Within the limitations of a noncontrast CT, no keo s abnormality of the pancreas or adrenals identified. IMPRESSION: 1. Large region of edema within the inferior portion of the intra-abdominal cavity. The source of th is is probably acute colonic diverticulitis, although that is not absolutely certain. 2. New loculated fluid collection abutting and between the stomach and liver. Perhaps this is a leeann zac. The source of this is uncertain. 3. No urolithiasis or obstructive uropathy. 4. Hepatosplenomegaly. 5. Status post cholecystectomy. 6. Pancolonic diverticulosis. LEYDI Arora POS: TPC
--- NOTE | 2019-04-16 12:20 | PRG ---
DATE OF SERVICE: 04/16/2019 SUBJECTIVE: He is still complaining of pain. He notes no specific area, although he points from his abdomen up to his right shoulder that he is having pain. Apparently, he has had no further nausea or vomiting. He is unsure whether he has had any diarrhea. pain medicine has been given, but it is not adequate. OBJECTIVE: VITAL SIGNS: Temperature 97.6. He has been afebrile since admission. BP 108/60, O2 saturation 96% on 2 L. LUNGS: Clear to auscultation. HEART: Reveals a regular rate and rhythm. No murmurs, gallops, or rubs. ABDOMEN: Appears to be protuberant. He is complaining of tenderness with palpation. It is hard to tell whether this is significant tenderness or an anticipatory pain. Bowel sounds are present and active. LABORATORY DATA: His white blood count is 7.3, hemoglobin 9.4, hematocrit 28.6. Sodium 132, potassium 4.5, chloride 105, CO2 of 18, BUN 68, creatinine 5.64. IMPRESSION: 1. Acute renal injury. 2. Abdominal pain of unknown etiology. 3. History of splenomegaly. PLAN: 1. The patient will be undergoing CAT scan today. Further recommendations per GI and Renal. 2. We will try to give adequate pain medicine. We have had to hold Lyrica and gabapentin due to renal function. Job ID: [id number]
[2019-04-16] MEDS: metroNIDAZOLE 500 MG in Premix Bag 1 BAG IVPB SCH ×2 (15:50→21:11)
--- NOTE | 2019-04-16 18:34 | PRG ---
DATE OF SERVICE: 04/16/2019 SUBJECTIVE: Mr. Chacon had his noncontrast CT abdomen and pelvis earlier today. He continues to have diffuse fairly constant abdominal discomfort though that it is not severe. He has had several loose bowel movements today with some red blood streaks. No vomiting. He has remained hemodynamically stable and afebrile. He is tolerating a liquid diet. OBJECTIVE: VITAL SIGNS: Temperature 97.2, pulse 76, blood pressure 114/67, and 94% oxygen saturation on room air. GENERAL: Obese, chronically ill, but appearing fairly nontoxic, alert and oriented. HEART: Regular rate and rhythm. LUNGS: Bibasilar crackles. No wheezing. No respiratory distress. ABDOMEN: Obese, moderate distention. Bowel sounds are active. There is diffuse tenderness to palpation throughout the abdomen. No guarding or rebound tenderness. EXTREMITIES: He has chronic left lower extremity edema. No edema to the right lower extremity. LABORATORY STUDIES: WBC is only 7.3, hemoglobin stable up to 9.4, platelets 214. Sodium 132, potassium 4.5, BUN 68, creatinine 5.64, glucose 92. Note that LFTs on admission and yesterday were all normal. Lipase was normal. IMAGING STUDIES: CT of the abdomen and pelvis without contrast was performed earlier today. I have reviewed the report as well as the images and also discussed findings over the phone with Dr. Keen. The CT scan is difficult to interpret and quite unusual. There is a 3.5 x 6 x 12.5 cm low-attenuation area abutting the left lobe of the liver in the proximal stomach, which may represent hematoma, versus loculated organized fluid collection. This is new since his prior CT less than 2 months ago. He also has a new large region of edema involving the entire lower abdomen which is unorganized and really involves the entire mesentery, but there is no significant bowel wall thickening either in the small or large bowel. He has diffuse diverticulosis, but no clear evidence of diverticulitis aside from just the edema throughout the lower abdomen. He has hepatosplenomegaly which was already known. ASSESSMENT/PLAN: 1. Diffuse mesenteric edema, primarily in the lower abdomen. 2. Extensive colonic diverticulosis, possible diverticulitis. 3. Hematochezia. 4. Indeterminate fluid collection in the upper abdomen measuring 12.5 cm. This is a difficult case I am having trouble tying all of the CT findings together, both the loculated fluid collection in the upper abdomen as well as the more diffuse mesenteric edema in the lower abdomen. This could possibly represent severe colonic diverticulitis, but really does not seem to be localizing anywhere specific in the colon. The bowel wall is not really thickened to suggest a diffuse enteritis. He has no leukocytosis, hemodynamic instability, or wall thickening to suggest acute mesenteric ischemia either. At this point, surgical consultation has been requested and I agree with this. Stool studies have been ordered and will follow up those results. For now, treat as severe diverticulitis. He is already receiving levofloxacin and metronidazole and this should be continued for now. I anticipate we will need to get repeat CT imaging of the abdomen in the next few days to see how this fluid collection may be evolving. He had a recent colonoscopy just within the past couple of months with findings over only of diverticulosis and internal hemorrhoids, and I do not think a colonoscopy would add anything to his evaluation at this time, nor do I think upper endoscopy would necessarily be helpful right now. 5. GI will follow along. Please call anytime with questions or concerns. The patient is tolerating a liquid diet for now. Job ID: [id number]
[2019-04-16] MEDS: traMADol HCl 50 MG TAB PO PRN (23:26)
[2019-04-17] MEDS: Sodium Chloride 0.9% 1,000 ML IV SCH ×2 (02:09→10:10)
[2019-04-17] MEDS: Albumin 25% 25 GM/100 ML BOT IVPB SCH ×4 (05:11→21:21)
[2019-04-17] MEDS: metroNIDAZOLE 500 MG in Premix Bag 1 BAG IVPB SCH ×2 (05:11→14:33)
[2019-04-17] MEDS: HYDROcodone/Acetaminophen 7.5/325 mg Tablet PO PRN ×4 (05:19→21:22)
[2019-04-17] MEDS: Promethazine HCl 25 MG/ML VIAL IM PRN ×2 (05:19→14:31)
[2019-04-17 05:27] LABS: #Eosinphils 0.1 thou/uL (0.0-0.7); #Lymphocytes 0.8 thou/uL (1.20-3.40); #Monocytes 0.6 thou/uL (0.11-0.59); #Neutrophils 5.9 thou/uL (1.40-6.50); %Basophils 0.5 % (0.0-1.0); %Lymphocytes 11.1 % (21.0-51.0); %Monocytes 7.6 % (0.0-10.0); %Neutrophils 79.8 % (42.0-75.0); Hemoglobin 8.9 g/dL (14.0-18.0); Mean Corpuscular Hemoglobin 28.1 pg (27.0-31.0); Mean Corpuscular Volume 84.9 fL (78.0-98.0); Mean Platelet Volume 6.7 fL (7.4-10.4); Platelet Count 237 thou/uL (130-400); RBC Distribution Width 14.2 % (11.5-14.5); Red Blood Cell (RBC) Count 3.17 mill/uL (4.70-6.10); White Blood Cell (WBC) Count 7.4 thou/uL (4.8-10.8)
[2019-04-17 05:46] LABS: Anion Gap 14 mmol/L (10-20); BUN (Urea Nitrogen) 69 mg/dL (8.9-20.6); Calc. Creatinine Clearance 26 mL/min (70-130); Calcium 8.4 mg/dL (7.8-10.44); Carbon Dioxide 19 mmol/L (22-29); Chloride 104 mmol/L (98-107); Estimated GFR-MDRD 11; Glucose 85 mg/dL (70-105); Potassium 4.7 mmol/L (3.5-5.1); Sodium 132 mmol/L (136-145)
[2019-04-17] MEDS ORDERED: Albumin 25% 25 GM/100 ML BOT IVPB ONE (08:22)
[2019-04-17] MEDS: Carvedilol 25 MG TAB PO SCH ×2 (09:23→21:22)
[2019-04-17] MEDS: Amlodipine 5 MG TAB PO SCH (09:24)
[2019-04-17] MEDS: Atorvastatin Calcium 10 MG TAB PO SCH (09:24)
[2019-04-17] MEDS: Pantoprazole 40 MG VIAL IVP SCH ×2 (09:26→21:23)
[2019-04-17] MEDS: Heparin 5,000 UNITS/ML VIAL SC SCH ×2 (09:27→21:23)
[2019-04-17] MEDS: Clotrimazole/Betamethasone Cream 45 GM TUBE TOP SCH ×2 (09:33→21:23)
--- NOTE | 2019-04-17 11:34 | PRG ---
DATE OF SERVICE: 04/17/2019 SUBJECTIVE: Mr. Chacon is a 48-year-old white male, who was seen by the Renal Service for his acute kidney injury. The working diagnosis is that he may have hemodynamically-mediated renal dysfunction. In brief, volume repletion has been given. In addition, albumin infusion was also added yesterday. Of note, the patient's creatinine remains unimproved, but it remains stable and has not worsened. Urinalysis was felt to be benign. With no improvement with volume repletion, the possibility that he may have an acute tubular necrosis remains. For the moment, we will continue current management. He has also had a CT scan of the abdomen and pelvis done yesterday. Further more, GI is currently following the patient due to the abdominal discomfort. He has had a bowel movement that had some blood in it. No other new complaints today. Denies any chest pain or shortness of breath. OBJECTIVE: VITAL SIGNS: Blood pressure is 117/66, heart rate 79, respiratory rate 20, temperature 97.9, and pulse ox 98%. GENERAL: Awake, alert, and comfortable, not in overt distress. SKIN: Adequate turgor. HEENT: He has a slightly pale conjunctivae. Anicteric sclerae. NECK: No neck mass. No carotid bruits. No JVD. CHEST: No deformities. LUNGS: Decreased breath sounds. HEART: Normal sinus rhythm. No murmur. No gallops. No rubs. ABDOMEN: Globular, soft, and nontender. No masses. EXTREMITIES: No edema. NEUROLOGIC: The patient is awake. Decreased visual acuity. MEDICATIONS: Medications of April 17, 2019, reviewed. LABORATORY DATA: Laboratories of April 17, 2019, white count 7.4 and hemoglobin 8.9. Sodium 132, potassium 4.7, chloride 104, carbon dioxide 19, BUN 69, creatinine 5.48, GFR 11 mL/minute, and calcium 8.4. CT scan of the abdomen and pelvis shows large region of edema within the inferior portion of the intraabdominal cavity. ? Of acute diverticulitis. New fluid collection between the stomach and liver. No obstruction noted from a kidney point of view. Finding of hepatosplenomegaly. ASSESSMENT AND PLAN: 1. Acute kidney injury - renal function unimproved. Possibility of an acute tubular necrosis remains. We will continue current IV hydration. Blood pressure is actually much improved. Albumin 25 g IV q.6 will be ordered for today. No indication for any acute dialytic intervention. I do anticipate improvement of the renal function. 2. Acute diverticulitis. Started on IV antibiotics. Gastroenterology is following. 3. Anemia. Continue to observe. 4. We will recheck CBC and basic metabolic in a.m. Job ID: [id number]
--- NOTE | 2019-04-17 16:10 | PRG ---
DATE OF SERVICE: 04/17/2019 SUBJECTIVE: Mr. Chacon is still complaining of pain, although he is sitting up in bed. He has had no vomiting. some diarrhea. OBJECTIVE: VITAL SIGNS: Temperature 97.4, blood pressure 128/66. LUNGS: Clear. HEART: Reveals no murmur. ABDOMEN: Diffusely tender without evidence of rebound or guarding. The bowel sounds are present and active. LABORATORY DATA: Hemoglobin 8.9, hematocrit 26.9, and white blood count 7.4. Sodium 132, potassium 4.7, chloride 104, CO2 of 19, BUN 69, and creatinine 5.4. IMAGING DATA: A CT scan revealed a diverticular disease of the colon as well as a new loculated fluid collection abutting between the stomach and liver, thought to be possible hematoma. IMPRESSION: 1. Abdominal discomfort, possible diverticulitis. 2. Acute renal insufficiency. PLAN: 1. I have consulted Surgery. Dr. Mckeon had done previous surgery on him to see if he can give us any further recommendations regarding his abdominal process. 2. GI is still seeing him. 3. Continued fluid per Nephrology. Job ID: [id number]
--- NOTE | 2019-04-17 16:16 | PRG ---
DATE OF SERVICE: 04/17/2019 SUBJECTIVE: Mr. Chacon feels about the same. He continues to complain of pain all over his body, including generalized pain throughout the abdomen. He has been tolerating his liquid diet. No further nausea or vomiting. No more hematochezia reported. OBJECTIVE: VITAL SIGNS: Temperature 97.9, pulse 79, blood pressure 117/66, and 98% oxygen saturation on 2 L nasal cannula. GENERAL: No acute distress. HEART: Regular rate and rhythm. LUNGS: Bibasilar crackles. No respiratory distress. ABDOMEN: Mild distention, obese. Bowel sounds are present. Diffuse tenderness to palpation, but no guarding or rebound tenderness. EXTREMITIES: Left lower extremity chronic edema. No edema in the right lower extremity. LABORATORY STUDIES: WBC remains normal at 7.4, hemoglobin stable at 8.9, platelets 237. Sodium 132, potassium 4.7. Renal function is stable, but has failed to improve with BUN 69, creatinine 5.48, and glucose is 96. ASSESSMENT AND PLAN: 1. Mesenteric edema in the context of acute on chronic renal failure. 2. Generalized abdominal pain, chronic. 3. Hematoma involving the left lobe of the liver. I discussed findings in the clinical situation with Dr. Negron and also with Dr. Mckeon today. At this point, I do think it is most likely that the patient's mesenteric edema simply represents developing fluid retention due to his renal failure. It is dependent in the lower abdomen, which is what would be expected. It does not appear to represent diverticulitis. The hematoma in the left lobe of the liver is still difficult to explain, but likely represent posttraumatic hematoma for one of the patient's many recent falls. This probably explains the decline in his hemoglobin from baseline. I would expect this to resolve. We will probably just recommend that he have repeat CT imaging in about a month to follow this up. His primary issue remains the renal failure, which has not responded to IV fluid and albumin resuscitation. Appreciate Nephrology assistance. No other recommendations from a GI perspective at this time. Please call anytime with questions or concerns. Job ID: [id number]
[2019-04-17] MEDS: Ondansetron PF 4 MG/2 ML Vial IVP PRN (21:21)
[2019-04-17] MEDS: metroNIDAZOLE 250 MG TAB PO SCH (21:22)
[2019-04-18] MEDS: Sodium Chloride 0.9% 1,000 ML IV SCH ×3 (01:44→09:20)
--- NOTE | 2019-04-18 02:41 | CON ---
DATE OF CONSULTATION: 04/17/2019 CONSULTING PHYSICIAN: Dr. Donte Negron. REASON FOR CONSULTATION: Abdominal pain. HISTORY OF PRESENT ILLNESS: The patient is an obese 48-year-old white male known to myself from recent left inguinal lymph node biopsy. He recuperated nicely from that surgery. He presented to the hospital on 04/14, complaining of abdominal pain with nausea and diarrhea. He was admitted to the hospital by his primary care physician, Dr. Negron. It was noted at the time of his presentation that he had marked elevation of his creatinine up to 5.7. This was presumed to be related to dehydration. The patient does have a history of multiple sclerosis. He reports fairly severe daily pain related to his multiple sclerosis. He is also essentially blind. He also continues to smoke. Since admission, Nephrology has been consulted and Dr. Yao has been following him. Gastroenterology has been consulted and he has been seen by both Dr. Verde and Dr. Page. I have spoken with Dr. Page regarding his situation. It is noted that his creatinine elevation, presumed to be potentially related to dehydration has not resolved or improved. His creatinine remains elevated at about 5.5. His white blood cell count has never been elevated and it remains normal at 7.4. He has a stable anemia with a hemoglobin of about 8.9. The patient still complains of severe diarrhea. He tells he has been on essentially a liquid diet for the past couple of weeks and whenever he drinks anything substantial or a nutritional supplement he tells me that it "goes right through him" and produces severe diarrhea. He also notes severe pain throughout his body whenever he is laying down, but he somehow gets relief from sitting up. PAST MEDICAL HISTORY: Significant for multiple sclerosis, blindness, coronary artery disease, severe diffuse body pain, hypertension, hyperlipidemia, morbid obesity. PAST SURGICAL HISTORY: He had throat surgery in 1997, cardiac stents in 2004, bypass surgery in 1999, cholecystectomy in 2014, left groin lymph node biopsy earlier this year, which revealed normal pathology. MEDICATIONS: Include aspirin, fenofibrate, Coreg, allopurinol, amlodipine, Plavix, lisinopril, Lyrica, Crestor, Flexeril, Lasix. ALLERGIES: SULFA, MORPHINE, AND PENICILLIN. PERSONAL AND SOCIAL HISTORY: He smokes a pack per day. Does not drink alcohol. He is and does have children. REVIEW OF SYSTEMS: Otherwise unremarkable. FAMILY HISTORY: Noncontributory. PHYSICAL EXAMINATION: VITAL SIGNS: He is afebrile. Pulse is 78, blood pressure 131/72. His vital signs have been stable since admission. GENERAL: He is a fairly cantankerous gentleman. He does not appear to be comfortable. He is alert and oriented x3. HEAD, EYES, EARS, NOSE, AND THROAT: Unremarkable. NECK: Supple. LUNGS: Clear to auscultation. CARDIAC: Regular rate and rhythm. ABDOMEN: Very protuberant. There does not appear to be focal tenderness, but his very obese protuberant abdomen prevents a reasonable abdominal examination. I cannot discern an area of focal tenderness. X-RAYS: CT scan was reviewed. There were a few abdominal findings of interest. 1. There is a what appears to be a fluid collection in the upper abdomen under the left lobe of the liver, between that and the stomach. It is difficult to discern what that is, whether it is a hematoma related to the liver or loculated fluid collection. It certainly does not have a malignant or infectious appearance. It is uncertain what it is, but for right now, I would recommend doing nothing about it. 2. There is a significant area of edema in the lower abdomen. This involves the mesentery as well as the abdominal wall. He does not have any definite area of diverticulitis that is discerned, rather there is edematous change throughout the lower abdomen including involving the colon. ASSESSMENT: The patient has some current cause of his diarrhea and digestive problems that seems to be making him miserable. I am not certain what the source of this is. Regarding the fluid collection in the upper abdomen, as mentioned, I do not think this is infectious or malignant. For right now, I would recommend observation. It will probably resolve on its own. Repeat imaging in a week or 2, may show a change in it. For right now, I would probably not recommend any attempted aspiration. In regard to the fluid in the lower abdomen, I suspect that this is edematous change related to his acute kidney injury. He is always sitting upright and has a huge abdomen and I suspect that the fluid is dependent within his abdomen. Therefore, affecting the lower abdominal wall and the lower mesentery. In regard to his renal failure, I am not certain what is causing that. He has been hydrated appropriately for now for 3 days and his creatinine has not changed at all. Finally, regarding his abdominal discomfort, he does not seem to have any focal abdominal tenderness, rather he complains of severe diffuse whole body pain, his abdomen being part of this. He believes this is secondary to his multiple sclerosis. I am uncertain what the best treatment for his whole-body pain is, but for right now, I would not recommend any specific treatment for his abdomen. I remain perplexed in regard to what is causing his current digestive issues. For right now, however, I would certainly not recommend any surgical intervention. Job ID: [id number]
[2019-04-18] MEDS: metroNIDAZOLE 250 MG TAB PO SCH ×2 (04:52→17:54)
[2019-04-18] MEDS: Albumin 25% 25 GM/100 ML BOT IVPB SCH (04:53)
[2019-04-18 06:18] LABS: #Eosinphils 0.1 thou/uL (0.0-0.7); #Lymphocytes 0.6 thou/uL (1.20-3.40); #Monocytes 0.3 thou/uL (0.11-0.59); %Basophils 0.2 % (0.0-1.0); %Lymphocytes 9.9 % (21.0-51.0); %Monocytes 5.6 % (0.0-10.0); %Neutrophils 82.3 % (42.0-75.0); Hemoglobin 8.7 g/dL (14.0-18.0); Mean Corpuscular HGB CONC 32.7 g/dL (32.0-36.0); Mean Corpuscular Hemoglobin 27.5 pg (27.0-31.0); Mean Corpuscular Volume 84.3 fL (78.0-98.0); Mean Platelet Volume 6.4 fL (7.4-10.4); Platelet Count 222 thou/uL (130-400); Red Blood Cell (RBC) Count 3.16 mill/uL (4.70-6.10); White Blood Cell (WBC) Count 6.1 thou/uL (4.8-10.8)
[2019-04-18 06:32] LABS: Anion Gap 17 mmol/L (10-20); BUN (Urea Nitrogen) 76 mg/dL (8.9-20.6); Calc. Creatinine Clearance 26 mL/min (70-130); Calcium 8.3 mg/dL (7.8-10.44); Carbon Dioxide 15 mmol/L (22-29); Chloride 108 mmol/L (98-107); Estimated GFR-MDRD 11; Glucose 90 mg/dL (70-105); Potassium 4.8 mmol/L (3.5-5.1); Sodium 135 mmol/L (136-145)
[2019-04-18] MEDS: Heparin 5,000 UNITS/ML VIAL SC SCH ×2 (09:19→21:21)
[2019-04-18] MEDS: Carvedilol 25 MG TAB PO SCH ×2 (09:21→21:20)
[2019-04-18] MEDS: Atorvastatin Calcium 10 MG TAB PO SCH (09:21)
[2019-04-18] MEDS: Amlodipine 5 MG TAB PO SCH (09:21)
[2019-04-18] MEDS: Pantoprazole 40 MG VIAL IVP SCH ×2 (09:21→21:21)
[2019-04-18] MEDS ORDERED: Clopidogrel Bisulfate 75 MG TAB ONE (09:23)
[2019-04-18] MEDS: Clotrimazole/Betamethasone Cream 45 GM TUBE TOP SCH ×2 (09:24→21:20)
[2019-04-18] MEDS ORDERED: Sodium Chloride 0.9% 1,000 ML IV SCH (09:33)
--- NOTE | 2019-04-18 10:58 | ULT ---
LIMITED ABDOMINAL ULTRASOUND: CLINICAL HISTORY: Ascites. FINDINGS: Small volume of ascites is demonstrated within the right lower abdominal quadrant and within the left lower abdominal quadrant. IMPRESSION: Mild intra-abdominal ascites. Transcribed Date/Time: 04/18/2019 11:06 AM
--- NOTE | 2019-04-18 12:00 | PRG ---
DATE OF SERVICE: 04/18/2019 SUBJECTIVE: Mr. Chacon complains his stomach is large today. He still complained of some discomfort. He has had no vomiting. OBJECTIVE: VITAL SIGNS: Temperature 97.3, pulse 76, respirations 20, and O2 saturations 96%, and BP 130/68. GENERAL: He is alert and active, in no acute distress. LUNGS: Bilateral breath sounds. HEART: Reveals a regular rate and rhythm. No murmurs, gallops, or rubs. ABDOMEN: Protuberant. He is noted to be sitting up in bed, appears to be less tender to palpation. LABORATORY DATA: Hemoglobin is 8.7, hematocrit 26.6, and white blood count 6.1. Sodium 135, potassium 4.8, chloride 108, CO2 of 15, BUN 76, and creatinine 5.49. Blood cultures negative at this time. IMPRESSION: 1. Acute renal injury, creatinine has not improved with fluid rehydration. Suspect more severe kidney injury. 2. Abdominal mass by CT scan of unknown etiology, does not appears to be more of a fluid collection. 3. History of atherosclerotic coronary artery disease. PLAN: 1. The patient will be progressed to a regular diet today appropriate for renal status. 2. We will cut back his IV fluids to 75 mL an hour. I believe he is getting some edema. 3. We will get an abdominal ultrasound to check for ascites. Job ID: [id number]
--- NOTE | 2019-04-18 12:09 | PRG ---
DATE OF SERVICE: 04/18/2019 SERVICE: Renal Medicine. SUBJECTIVE: Mr. Chacon is a 48-year-old white male, who was seen by the Renal Service for his acute kidney injury. The initial impression is that he may have a hemodynamically-mediated dysfunction. For that reason, he has received empiric volume repletion with crystalloids and colloids. However, renal function remains unimproved. Of interest is the patient's creatinine has actually stabilized, the most recent value of creatinine of 5.49. My plan is to decrease the IV fluid from 125 mL to 75 mL an hour of normal saline. He was evaluated by Surgery and GI for his abdominal pain. The exact etiology of the abdominal pain is unclear. No complaints of chest pain or shortness of breath. OBJECTIVE: VITAL SIGNS: Blood pressure is 133/72, heart rate 80, respiratory rate 20, temperature 98.1, pulse ox 96%. GENERAL: Awake, alert, and comfortable, not in overt distress. Obese. SKIN: Adequate turgor. HEENT: He has a pinkish conjunctivae. Anicteric sclerae. NECK: No neck mass. No carotid bruits. No JVD. CHEST: No deformities. LUNGS: Decreased breath sounds. HEART: Normal sinus rhythm. No murmurs. No gallops. No rubs. ABDOMEN: Globular, soft, nontender. No masses. EXTREMITIES: No edema. No deformities. MEDICATIONS: Medications of April 18, 2019, was reviewed. LABORATORY DATA: Laboratories of April 18, 2019; white count 6.1, hemoglobin 8.7. Sodium 135, potassium 4.8, chloride 108, carbon dioxide 15, BUN 76, creatinine 5.49, GFR 11 mL/minute, calcium 8.3. ASSESSMENT AND PLAN: 1. Acute kidney injury-initially felt to be a prerenal azotemia. However, it remains unimproved. Consideration for a superimposed acute tubular necrosis remains with this patient. Continue supportive care. Decrease IV fluid. There is no indication for any dialytic intervention. Please note, renal function has been stable for the last several days. 2. Abdominal pain. Continue to observe. The patient is currently on empiric IV antibiotics. GI and Surgery are following. 3. Anemia. Hemoglobin noted at 8.7. Continue to observe. P.r.n. blood transfusion. 4. Recheck basic metabolic profile and CBC in a.m. ADDENDUM: Metabolic acidosis. Sodium bicarbonate 650 mg p.o. t.i.d. has been started. Job ID: [id number] MTDD
--- NOTE | 2019-04-18 13:01 | PRG ---
DATE OF SERVICE: 04/18/2019 SUBJECTIVE: Mr. Chacon says he feels the same as yesterday. He continues to have full body pain. This includes abdominal pain more in the upper abdomen than the lower abdomen today. He tolerated his breakfast just fine. There is some nausea, but no vomiting. He has continued to have some loose bowel movements. No significant bleeding. Renal function is stable, but not improved. OBJECTIVE: VITAL SIGNS: Temperature 98.0, pulse 82, blood pressure 141/76, and 97% oxygen saturation on 2 L nasal cannula. GENERAL: No acute distress. Somnolent, but easily arousable. When he decides to converse, he is able to answer questions appropriately. HEART: Regular rate and rhythm. LUNGS: Bibasilar crackles. No respiratory distress. ABDOMEN: Distended. Bowel sounds are present. Soft. Tender to palpation in the epigastrium, but not in the lower abdomen. EXTREMITIES: Edema of the left lower extremity. LABORATORY STUDIES: Sodium 135, potassium 4.8, BUN 76, creatinine 5.49, glucose 90. WBC 6.1, hemoglobin 8.7, and platelets 222. IMAGING STUDIES: Abdominal ultrasound demonstrates only a small amount of ascites in the right and left lower quadrants. ASSESSMENT AND PLAN: 1. Mesenteric edema and mild ascites in the context of acute on chronic renal failure. 2. Generalized abdominal pain, chronic. I spoke again with Dr. Negron regarding the patient today. There is essentially no significant change in clinical status. We are still awaiting improvement in renal function. I am hopeful that if renal function improves, his fluid status will become more favorable, we will have resolution of mesenteric edema and hopefully improvement in his chronic abdominal pain. Still no plan for any repeat endoscopic investigations. At this time, I note stool studies that were sent have not yet been resulted, but frankly have low suspicion for infectious gastroenteritis. Dr. Morrison is covering for GI this weekend if there are any questions or concerns. Job ID: [id number]
[2019-04-18] MEDS: Sodium Bicarbonate Tab 325 MG TAB PO SCH ×2 (14:21→21:20)
[2019-04-18] MEDS ORDERED: Furosemide 40 MG/4 ML VIAL SLOW IVP SCH (21:00)
[2019-04-18] MEDS: Ondansetron PF 4 MG/2 ML Vial IVP PRN (21:18)
[2019-04-18] MEDS: HYDROcodone/Acetaminophen 10/325 mg Tablet PO PRN (21:19)
[2019-04-18] MEDS: metroNIDAZOLE 500 MG TAB PO SCH (21:20)
[2019-04-18] MEDS: Ketorolac Tromethamine 30 MG/ML VIAL IM PRN (23:20)
[2019-04-19] MEDS: HYDROcodone/Acetaminophen 10/325 mg Tablet PO PRN ×4 (04:36→22:40)
[2019-04-19] MEDS: Ondansetron PF 4 MG/2 ML Vial IVP PRN ×3 (04:37→16:43)
[2019-04-19 05:52] LABS: #Basophils 0.1 thou/uL (0.0-0.2); #Eosinphils 0.2 thou/uL (0.0-0.7); #Lymphocytes 0.8 thou/uL (1.20-3.40); #Monocytes 0.3 thou/uL (0.11-0.59); #Neutrophils 4.1 thou/uL (1.40-6.50); %Eosinophils 2.9 % (0.0-10.0); %Lymphocytes 14.7 % (21.0-51.0); %Monocytes 5.4 % (0.0-10.0); Hemoglobin 8.7 g/dL (14.0-18.0); Mean Corpuscular HGB CONC 32.8 g/dL (32.0-36.0); Mean Corpuscular Hemoglobin 27.7 pg (27.0-31.0); Mean Corpuscular Volume 84.4 fL (78.0-98.0); Mean Platelet Volume 6.4 fL (7.4-10.4); Platelet Count 245 thou/uL (130-400); RBC Distribution Width 14.3 % (11.5-14.5); Red Blood Cell (RBC) Count 3.15 mill/uL (4.70-6.10); White Blood Cell (WBC) Count 5.4 thou/uL (4.8-10.8)
[2019-04-19] MEDS: metroNIDAZOLE 500 MG TAB PO SCH ×3 (06:06→21:03)
[2019-04-19 06:19] LABS: Anion Gap 15 mmol/L (10-20); BUN (Urea Nitrogen) 80 mg/dL (8.9-20.6); Calc. Creatinine Clearance 24 mL/min (70-130); Calcium 8.5 mg/dL (7.8-10.44); Carbon Dioxide 17 mmol/L (22-29); Chloride 110 mmol/L (98-107); Estimated GFR-MDRD 10; Glucose 87 mg/dL (70-105); Potassium 4.8 mmol/L (3.5-5.1); Sodium 137 mmol/L (136-145)
[2019-04-19] MEDS: Ketorolac Tromethamine 30 MG/ML VIAL IM PRN (06:44)
[2019-04-19] MEDS: Acetaminophen 325 MG TAB PO PRN ×2 (07:34→20:54)
[2019-04-19] MEDS: Carvedilol 25 MG TAB PO SCH ×2 (09:28→20:52)
[2019-04-19] MEDS: Sodium Bicarbonate Tab 325 MG TAB PO SCH ×3 (09:28→20:52)
[2019-04-19] MEDS: Pantoprazole 40 MG VIAL IVP SCH ×2 (09:29→20:53)
[2019-04-19] MEDS: Heparin 5,000 UNITS/ML VIAL SC SCH ×2 (09:29→20:53)
[2019-04-19] MEDS: Atorvastatin Calcium 10 MG TAB PO SCH (09:29)
[2019-04-19] MEDS: Amlodipine 5 MG TAB PO SCH (09:29)
[2019-04-19] MEDS: Clotrimazole/Betamethasone Cream 45 GM TUBE TOP SCH ×2 (09:34→20:53)
--- NOTE | 2019-04-19 09:52 | PRG ---
DATE OF SERVICE: 04/19/2019 SUBJECTIVE: The patient still has persistent abdominal pain and swelling. He remains uncomfortable. OBJECTIVE: VITAL SIGNS: Temperature 97.7, pulse 69, respirations 22, pulse ox 98%, and blood pressure 125/70. HEART: Regular rate and rhythm. LUNGS: Clear. ABDOMEN: Morbidly obese with ascites. LABORATORY DATA: White count 5.4, hemoglobin and hematocrit of 8.7 and 26.6 stable, platelet 245. Sodium 132, potassium 4.7, creatinine 5.48. On 04/17, BUN 69. ASSESSMENT: 1. Abdominal pain, etiology unknown. However, he does have a fluid collection in the upper abdomen, possibly hematoma seen on CT scan. 2. Mesenteric edema and mild ascites. 3. Acute on chronic renal failure with minimal improvement. 4. Diverticulosis with possible diverticulitis as seen on CAT scan. 5. Dehydration, improving. 6. Blindness. 7. Anemia of chronic disease. 8. Coronary artery disease, status post bypass. 9. Thirty year tobacco history. 10. Complicated multiple sclerosis. PLAN: 1. We will recheck CBC and BMP for today. 2. Continue with antibiotics, Levaquin, and Flagyl. 3. Continue heparin subcu 5000 units b.i.d. 4. Limit pain medications. 5. We will recheck creatinine today and if there is significant improvement, consider using more diuretics. 6. We will continue to follow with Dr. Yao, Dr. Mckeon, and Dr. Page. Job ID: [id number]
--- NOTE | 2019-04-19 13:00 | HP ---
SUBJECTIVE: Mr. Chacon is a 48-year-old white male, who was seen by the Renal Service for his acute kidney injury. The feeling was that this was initially from prerenal azotemia. Empiric volume repletion was given, however, no improvement of the renal function was noted. He most likely has superimposed acute tubular necrosis. He received a one time dose of Lasix yesterday. In addition, I have decided to stop the Toradol, which the patient has been receiving on a p.r.n. basis. The patient is voicing no other complaints today. Denies any chest pain or shortness of breath. OBJECTIVE: VITAL SIGNS: Blood pressure 120/68, heart rate 71, respiratory rate 22, and temperature 98.4. GENERAL: The patient is sleepy, but arousable, comfortable, not in distress, and obese. SKIN: Adequate turgor. HEENT: He has a slightly pale conjunctivae. Anicteric sclerae. No neck mass. No carotid bruits. No JVD. CHEST: No deformities. LUNGS: Clear breath sounds. HEART: Normal sinus rhythm. No murmur. No gallops. No rubs. ABDOMEN: Globular, soft, and nontender. No masses. EXTREMITIES: Positive for edema, but no deformities. MEDICATIONS: Medications of April 19, 2019, reviewed. LABORATORY DATA: Laboratories of April 19, 2019: White count 5.4, hemoglobin 8.7. Sodium 137, potassium 4.8, chloride 110, carbon dioxide 17, BUN 80, creatinine 5.89, GFR 10 mL/minute, and calcium 8.5. ASSESSMENT AND PLAN: 1. Acute kidney injury on top of his chronic renal failure, worsening renal dysfunction. Possibility of a superimposed acute tubular necrosis remains. I have discontinued Toradol. Hopefully, there will be some improvement in the renal function. There is no indication for any dialytic intervention. 2. Mild shortness of breath - improved. Hold off diuretics for the moment. He did receive Lasix 40 mg IV one dose last night. In addition, I have placed his IVF on hold. 3. Anemia, stable. Continue to observe. Recheck basic metabolic, CBC in a.m. Agree with current management. Job ID: [id number]
[2019-04-19] MEDS: traMADol HCl 50 MG TAB PO PRN (20:54)
[2019-04-20] MEDS: HYDROcodone/Acetaminophen 10/325 mg Tablet PO PRN ×3 (05:01→20:55)
[2019-04-20] MEDS: metroNIDAZOLE 500 MG TAB PO SCH ×3 (05:01→21:02)
[2019-04-20 05:35] LABS: #Eosinphils 0.2 thou/uL (0.0-0.7); #Lymphocytes 0.9 thou/uL (1.20-3.40); #Monocytes 0.4 thou/uL (0.11-0.59); #Neutrophils 5.1 thou/uL (1.40-6.50); %Basophils 0.4 % (0.0-1.0); %Eosinophils 2.4 % (0.0-10.0); %Lymphocytes 13.6 % (21.0-51.0); %Monocytes 5.9 % (0.0-10.0); %Neutrophils 77.7 % (42.0-75.0); Hemoglobin 8.6 g/dL (14.0-18.0); Mean Corpuscular HGB CONC 33.4 g/dL (32.0-36.0); Mean Corpuscular Hemoglobin 28.4 pg (27.0-31.0); Mean Platelet Volume 6.3 fL (7.4-10.4); Platelet Count 237 thou/uL (130-400); RBC Distribution Width 14.2 % (11.5-14.5); Red Blood Cell (RBC) Count 3.03 mill/uL (4.70-6.10); White Blood Cell (WBC) Count 6.6 thou/uL (4.8-10.8)
[2019-04-20 05:54] LABS: Anion Gap 16 mmol/L (10-20); BUN (Urea Nitrogen) 91 mg/dL (8.9-20.6); Calc. Creatinine Clearance 21 mL/min (70-130); Calcium 8.2 mg/dL (7.8-10.44); Carbon Dioxide 17 mmol/L (22-29); Chloride 109 mmol/L (98-107); Estimated GFR-MDRD 9; Glucose 95 mg/dL (70-105); Potassium 4.9 mmol/L (3.5-5.1); Sodium 137 mmol/L (136-145)
[2019-04-20] MEDS: Sodium Bicarbonate Tab 325 MG TAB PO SCH ×3 (08:45→20:52)
[2019-04-20] MEDS: Amlodipine 5 MG TAB PO SCH (08:46)
[2019-04-20] MEDS: Carvedilol 25 MG TAB PO SCH ×2 (08:46→20:53)
[2019-04-20] MEDS: traMADol HCl 50 MG TAB PO PRN ×2 (08:46→14:16)
[2019-04-20] MEDS: Atorvastatin Calcium 10 MG TAB PO SCH (08:46)
[2019-04-20] MEDS: Pantoprazole 40 MG VIAL IVP SCH ×2 (08:48→20:53)
[2019-04-20] MEDS: Clotrimazole/Betamethasone Cream 45 GM TUBE TOP SCH ×2 (08:49→20:54)
[2019-04-20] MEDS: Heparin 5,000 UNITS/ML VIAL SC SCH ×2 (08:49→20:54)
--- NOTE | 2019-04-20 11:24 | PRG ---
DATE OF SERVICE: 04/20/2019 SERVICE: Renal Medicine. SUBJECTIVE: Mr. Chcaon is a 48-year-old white male, who was initially admitted for abdominal pain. He did have diverticulitis. He is currently on IV antibiotics. He was also seen by Renal Service for his acute kidney injury. Empirically, he was treated for hemodynamically-mediated renal dysfunction. However, renal function remained unimproved. Possibility of acute tubular necrosis on top of her chronic renal failure remains. His renal function continues to worsen. We have discontinued yesterday the Toradol. I did discuss about the possibility of dialysis with this patient. He is amenable to it. However, I will discuss it with the to update her on his medical status. He voices no other complaints except for the chronic pain. He denies any chest pain or shortness of breath. OBJECTIVE: VITAL SIGNS: Blood pressure 154/86, heart rate 83, respiratory rate 20, temperature 97.9, and pulse ox 95%. GENERAL: Noted to be awake, alert, obese, not in overt distress. SKIN: Adequate turgor. HEENT: He has slightly pale conjunctivae. Anicteric sclerae. NECK: No neck mass. No carotid bruits. No JVD. CHEST: No deformities. LUNGS: Clear breath sounds. No wheezing. No crackles. HEART: Normal sinus rhythm. No murmur. No gallops. No rubs. ABDOMEN: Globular, soft, and nontender. No masses. EXTREMITIES: Positive for edema. MEDICATIONS: Medications of April 20, 2019, was reviewed. LABORATORY DATA: Laboratories Of April 20, 2019; white count 6.6, hemoglobin 8.6. Sodium 137, potassium 4.9, chloride 109, carbon dioxide 17, BUN 91, creatinine 6.66, GFR 9 mL/minute, and calcium 8.2. ASSESSMENT AND PLAN: 1. Acute kidney injury secondary to presumed acute tubular necrosis. Renal function continues to worsen. The patient is off IV hydration since this was discontinued 2 days ago due to no improvement with the renal function. I had a long discussion with the patient regarding his diagnosis and prognosis. He is amenable for dialysis. He requested for me to speak with his . I left my calling card and I will try to speak with to update her on the patient's condition. 2. Diverticulitis, on antibiotics. 3. Chronic pain, on p.r.n. pain medication. Continue to hold off any NSAIDs for the moment. 4. Anemia, stable. We will recheck basic metabolic panel and CBC in a.m. Job ID: [id number]
[2019-04-20] MEDS ORDERED: Ondansetron ODT 4 MG TAB PO PRN (15:29)
--- NOTE | 2019-04-20 16:10 | ULT ---
Exam: Vein mapping for dialysis access HISTORY: End-stage renal disease. TECHNIQUE: Multiplanar grayscale and color Doppler images were obtained in a bilateral upper extremit y venous ultrasound. Spectral analysis of the Doppler waveforms of the vessels were performed. FINDINGS: The bilateral internal jugular veins and subclavian veins are patent without evidence of th rombus. Right brachial artery 4.3 mm Right radial artery 2.9 mm Right ulnar artery 1.4 mm Left brachial artery 6.0 mm Left radial artery 3.1 mm Left ulnar artery 2.3 mm RIGHT CEPHALIC VEIN in millimeters 4.5 -- Shoulder 4.5 -- Upper arm 3.7 -- Mid upper arm 4.2 -- Just proximal to the elbow 2.3 -- Just distal to the elbow 2.0 -- Forearm 1.9 -- Wrist RIGHT BASILIC VEIN in millimeters 4.8 -- Shoulder 5.3 -- Upper arm 5.1 -- Mid upper arm 6.8 -- Just proximal to the elbow 1.7 -- Just distal to the elbow 1.5 -- Forearm 1.1 -- Wrist LEFT CEPHALIC VEIN in millimeters 3.1 -- Shoulder 2.8 -- Upper arm 3.2 -- Mid upper arm 2.1 -- Just proximal to the elbow 1.9 -- Just distal to the elbow 2.6 -- Forearm 3.3 -- Wrist LEFT BASILIC VEIN in millimeters 7.9 -- Shoulder 6.2 -- Upper arm 5.3 -- Mid upper arm 5.9 -- Just proximal to the elbow 1.1 -- Just distal to the elbow 1.1 -- Forearm 0.9 -- Wrist IMPRESSION: Vein mapping for dialysis access as above
--- NOTE | 2019-04-20 17:41 | PRG ---
DATE OF SERVICE: SUBJECTIVE: The patient continues to feel bad. Complaining of persistent abdominal pain; however, he converses without difficulty. OBJECTIVE: VITAL SIGNS: Temperature 97.9, pulse 83, respirations 20, pulse ox 95%, and blood pressure 154/86. HEART: Regular rate and rhythm. LUNGS: Clear. ABDOMEN: Morbidly obese. EXTREMITIES: Stable. LABORATORY DATA: White count 6.6, hemoglobin and hematocrit 8.6 and 25.7, sodium 137, potassium 4.9, creatinine 6.66 up from 5.89, BUN 91, blood sugar 95. ASSESSMENT: 1. Abdominal pain persists. Abnormal finding on CT scan. 2. Mesenteric ischemia with mild ascites. 3. Acute on chronic renal failure with probable ATN. 4. Diverticulosis with possible diverticulitis. 5. Dehydration, stable. 6. Blindness. 7. Anemia of chronic disease. 8. Coronary artery disease, status post bypass. 9. 30-year tobacco history. 10. Complicated multiple sclerosis. PLAN: 1. Kidney function continues to become worse. May have to consider dialysis. Toradol and Lasix were stopped. Hopefully, his renal functions will improve tomorrow. 2. We will continue to follow with Nephrology. Job ID: [id number]
[2019-04-20] MEDS: Promethazine HCl 25 MG/ML VIAL IM PRN (17:47)
--- NOTE | 2019-04-20 21:35 | HP ---
HISTORY OF PRESENT ILLNESS: Mr. Chacon is a 48-year-old male with end-stage renal disease. I have been asked by Dr. Yao to place hemodialysis catheter. Unfortunately, he had breakfast this morning, it is Sunday. His electrolytes are stable. He has left antecubital IV. We will plan placement of a hemodialysis catheter and a central line tomorrow after n.p.o. status. ALLERGIES: MORPHINE, PENICILLIN, SULFA. HE CANNOT TOLERATE FENTANYL. TOBACCO: One-half to one pack per day or more. ALCOHOL: Socially. MEDICATIONS: Outpatient: 1. Gabapentin. 2. Lasix. 3. Lisinopril. 4. Vascepa. 5. Gabapentin. 6. Tramadol. 7. Crestor. 8. Lyrica. 9. Atorvastatin. 10. Aspirin. 11. Amlodipine besylate. 12. Allopurinol. 13. Flexeril. 14. Plavix. 15. Carvedilol. PAST SURGICAL HISTORY: Coronary artery bypass grafting 11 years ago at this institution, laparoscopic cholecystectomy at the [facility], lymph node biopsy in January 2019. February 13, 2019, Dr. Page performed colonoscopy, biopsy, snare polypectomy. The patient had sessile adenomas, tubular adenomas. REVIEW OF SYSTEMS: Noncontributory. The patient is morbidly obese, 5 foot 9 inches, 250 pounds, 36 BMI. The patient is followed by Dr. Yao, Nephrology; Dr. Piña, Primary Care. PAST MEDICAL HISTORY: Chronic kidney disease, end-stage renal disease, multiple sclerosis, coronary artery disease, history of [place] followed by Dr. Browning, partial blindness, headaches, hypertension, hyperlipidemia, asthma, and ongoing tobacco abuse. PHYSICAL EXAMINATION: VITAL SIGNS: 5 foot 9 inches, 250 pounds, 36 BMI. HEAD, EARS, EYES, NOSE, AND THROAT: Unremarkable. LUNGS: Clear to auscultation. CARDIAC: Regular rate and rhythm without murmur or gallop. ABDOMEN: Soft, obese, prominent abdomen. EXTREMITIES: Left antecubital IV removed. Palpable radial pulses. ASSESSMENT AND PLAN: 1. End-stage renal disease. Placement of hemodialysis catheter and central line tomorrow after n.p.o. status. We will obtain ultrasound vein mapping in both arms and also plan primary fistula graft placement. Avoid IVs above his wrist. I have explained the risks and benefits of procedure and consents. 2. We will at later time place primary fistula. 3. Morbid obesity. 4. Tobacco abuse. 5. Coronary artery disease. 6. Hypertension. Job ID: [id number]
[2019-04-21] MEDS: HYDROcodone/Acetaminophen 10/325 mg Tablet PO PRN ×3 (04:33→22:33)
[2019-04-21] MEDS: metroNIDAZOLE 500 MG TAB PO SCH ×3 (05:18→22:31)
[2019-04-21] MEDS: Carvedilol 25 MG TAB PO SCH ×2 (05:45→22:31)
[2019-04-21 05:54] LABS: #Eosinphils 0.1 thou/uL (0.0-0.7); #Lymphocytes 0.7 thou/uL (1.20-3.40); #Monocytes 0.3 thou/uL (0.11-0.59); #Neutrophils 3.7 thou/uL (1.40-6.50); %Basophils 0.3 % (0.0-1.0); %Eosinophils 1.6 % (0.0-10.0); %Lymphocytes 14.9 % (21.0-51.0); %Neutrophils 77.1 % (42.0-75.0); Hemoglobin 8.4 g/dL (14.0-18.0); Mean Corpuscular HGB CONC 32.3 g/dL (32.0-36.0); Mean Corpuscular Hemoglobin 27.7 pg (27.0-31.0); Mean Corpuscular Volume 85.7 fL (78.0-98.0); Mean Platelet Volume 6.3 fL (7.4-10.4); Platelet Count 241 thou/uL (130-400); RBC Distribution Width 14.2 % (11.5-14.5); Red Blood Cell (RBC) Count 3.03 mill/uL (4.70-6.10); White Blood Cell (WBC) Count 4.8 thou/uL (4.8-10.8)
[2019-04-21 06:06] LABS: Anion Gap 14 mmol/L (10-20); BUN (Urea Nitrogen) 85 mg/dL (8.9-20.6); Calc. Creatinine Clearance 22 mL/min (70-130); Calcium 8.2 mg/dL (7.8-10.44); Carbon Dioxide 16 mmol/L (22-29); Chloride 110 mmol/L (98-107); Estimated GFR-MDRD 9; Glucose 84 mg/dL (70-105); Potassium 4.9 mmol/L (3.5-5.1); Sodium 135 mmol/L (136-145)
[2019-04-21] MEDS ORDERED: Heparin 10,000 UNITS/ 10 ML VIAL ONE (09:00)
[2019-04-21] MEDS: Amlodipine 5 MG TAB PO SCH (09:09)
[2019-04-21] MEDS: Sodium Bicarbonate Tab 325 MG TAB PO SCH ×3 (09:09→22:32)
[2019-04-21] MEDS: Acetaminophen 325 MG TAB PO PRN (09:09)
[2019-04-21] MEDS: Pantoprazole 40 MG VIAL IVP SCH ×2 (09:10→22:32)
[2019-04-21] MEDS: Clotrimazole/Betamethasone Cream 45 GM TUBE TOP SCH ×2 (09:16→22:32)
[2019-04-21] MEDS: Heparin 5,000 UNITS/ML VIAL SC SCH ×2 (09:16→22:32)
--- NOTE | 2019-04-21 09:53 | PRG ---
DATE OF SERVICE: 04/21/2019 SERVICE: Renal Medicine. SUBJECTIVE: Mr. Chacon is a 48-year-old white male, who was seen by Renal Service for his acute kidney injury. Initially, we felt that this was a hemodynamically-mediated dysfunction, but did not improve with volume depletion. My suspicion is he may have a superimposed acute tubular necrosis. The other possibility is he may have underlying chronic renal failure and this is simply a reflection of disease progression. Due to the worsening renal dysfunction, it was decided to proceed with hemodialysis. A surgical consult has been done with Dr. Soni. A cuffed dialysis catheter will be placed today. In addition, he was recently diagnosed with a possible C diff colitis. The patient is now currently on antibiotics. No complaints of chest pain or shortness of breath. OBJECTIVE: VITAL SIGNS: Blood pressure 135/76, heart rate 72, respiratory rate 18, temperature 97.7, pulse ox 97%. GENERAL: The patient is sleeping, but arousable, comfortable. Obese. SKIN: Adequate turgor. HEENT: He has slightly pale conjunctivae. Anicteric sclerae. NECK: No neck mass. No carotid bruits. No JVD. CHEST: No deformities. LUNGS: Clear breath sounds. No wheezing. No crackles. HEART: Normal sinus rhythm. No murmur. No gallops. No rubs. ABDOMEN: Globular, soft, nontender. No masses. EXTREMITIES: Trace edema. MEDICATIONS: Medications of April 21, 2019, was reviewed. LABORATORY DATA: Laboratories of April 21, 2019, white count 4.8, hemoglobin 8.4. Sodium 135, potassium 4.9, chloride 110, carbon dioxide 16, BUN 85, creatinine 6.37, glucose 84, calcium 8.2. White count is 4.8, hemoglobin 8.4. ASSESSMENT AND PLAN: 1. Acute kidney injury/chronic renal failure-superimposed acute tubular necrosis. The other possibility is he may have progressive renal dysfunction. The plan is to initiate dialysis. He is also noted to be in some degree of volume overload, and for that reason, volume removal will be done with the dialysis. I had a long discussion with the regarding dialysis. 2. Clostridium difficile colitis-on empiric antibiotics. Currently, on Cipro and Flagyl. 3. Multiple sclerosis-supportive care. 4. Chronic pain, on round the clock [place]. He eventually will need a pain clinic evaluation. Overall, agree with current management. Job ID: [id number]
[2019-04-21 10:11] LABS: Hep B Core Total Ab Non-Reactive (NonReactive); Hep B Core Total Index 0.08 S/CO (0-0.79); Hep B Surf Ag Non-Reactive S/CO (NonReactive)
[2019-04-21 10:12] LABS: HBSAB Concentration 1.12 mIU/mL; Hep B Surf AB Non-Reactive (NonReactive)
[2019-04-21 10:13] LABS: Hep C IgG Ab Non-Reactive (NonReactive)
[2019-04-21] MEDS ORDERED: PROPOFOL 200 MG/20 ML VIAL ONE (11:14)
--- NOTE | 2019-04-21 12:23 | PRG ---
DATE OF SERVICE: 04/19/2019 This is a cross coverage for Dr. Jj clifford. SUBJECTIVE: This is a 48-year-old male hospitalized with abdominal pain, diarrhea, and mild hematochezia. The patient had a colonoscopy by Dr. Jj Clifford less than 6 weeks ago, was found to have mild inflammatory changes. The findings were nonspecific. The patient had abdominal pain and diarrhea. We did an abdominal CAT scan, which revealed mesenteric edema and also a fluid collection in the upper abdomen of possibly a hematoma. The patient also had acute on chronic kidney failure. his BUN and creatinine remain high and coming up. The BUN has gone up from 74 to 80. The creatinine remains high more than 5.5. The patient continued to have abdominal pain. No nausea or diarrhea. He has had about 4 or 5 stools today. He has also had some mild hematochezia. He has no nausea or vomiting. He is tolerating diet. He is being seen by Dr. Yao for his kidney problems. PHYSICAL EXAMINATION: GENERAL: He is obese, appears comfortable. VITAL SIGNS: Afebrile, pulse is 71, blood pressure is 120/68. CARDIOVASCULAR: First and second heart sounds normal. LUNGS: Clear to auscultation. ABDOMEN: Distended. Abdomen has what appears to be some subcutaneous fluid collection. EXTREMITIES: Also his left leg is markedly swollen compared to the right leg because of previous vein stripping for bypass surgery. LABORATORY DATA: From today, hemoglobin 8.7, the same as before, not changed for the last probably 5 days. Hematocrit 26.6, platelet count 245,000, polymorphs 76, lymphocytes 14. Chemistry panel shows BUN has gone up to 80, creatinine is 5.89. Lytes are normal. CO2 is 17. IMPRESSION: 1. Acute on chronic kidney disease, not improving. 2. Diarrhea. Negative colonoscopy 6 weeks ago. 3. Anemia. 4. Anasarca, a lot of fluid collection in the belly and extremities. RECOMMENDATIONS: 1. Continue present treatment. 2. Follow up labs. I will defer to Dr. Yao to see what his plans are. Job ID: [id number]
--- NOTE | 2019-04-21 14:18 | PRG ---
DATE OF SERVICE: 04/21/2019 SUBJECTIVE: Mr. Chacon is resting comfortably, does not appear to be in any pain. OBJECTIVE: VITAL SIGNS: Temperature 98.1, BP 153/88. LUNGS: Clear. HEART: Reveals a regular rate and rhythm. No murmurs, gallops, or rubs. ABDOMEN: Soft. Bowel sounds are present and active. There is no hepatosplenomegaly noted. It is noted that stool guaiac was done, which was positive for C difficile. IMPRESSION: 1. Worsening renal function, now a candidate for dialysis. 2. Possible Clostridium difficile colitis. PLAN: 1. Await further recommendations from Urology for hemodialysis. 2. We will discontinue Levaquin at this time. Continue IV Flagyl. Consideration for further treatment of C difficile. Job ID: [id number]
--- NOTE | 2019-04-21 14:41 | PRG ---
DATE OF SERVICE: 04/20/2019 SUBJECTIVE: This is a 48-year-old male, hospitalized with abdominal pain, diarrhea, mild hematochezia, and worsening renal function. The BUN has been rising up slowly, but slightly. Lab data shows BUN coming up to 91 and creatinine 6.66. The patient complained of abdominal bloating, abdominal swelling, and intermittent diarrhea. He also has mild hematochezia. The patient's stool studies were negative. He had a colonoscopy about [address] Yao has seen him today and plan is being made to dialyze him today because of worsening kidney function. PHYSICAL EXAMINATION: GENERAL: He is obese, appears comfortable. VITAL SIGNS: Afebrile, pulse is 83, blood pressure 154/86. CARDIOVASCULAR: Lungs within normal limits. ABDOMEN: Distended and firm. Abdomen is mildly tender. There is no rebound or guarding. LABORATORY DATA: Lab data shows kidney function. On admission, the BUN was 76, this has gone up to 91 today, creatinine 5.49 jumped to 6.66. Although, he has mild hematochezia. Blood count is really stable around 8.6, hematocrit 25.7. ASSESSMENT: 1. Continue present treatment. 2. Plan is being made by Dr. Yao for dialysis, hopefully the next 24 hours. Job ID: [id number]
[2019-04-21] MEDS: Atorvastatin Calcium 10 MG TAB PO SCH (15:21)
--- NOTE | 2019-04-21 17:24 | PRG ---
DATE OF SERVICE: 04/21/2019 SUBJECTIVE: Over the weekend, Mr. Chacon has not had much clinical change. He is tolerating his diet. He continues to have diarrhea with a little bit of hematochezia. His renal function has worsened and he is now awaiting dialysis catheter placement. OBJECTIVE: VITAL SIGNS: Temperature 97.8, pulse 70, blood pressure 138/70, and 97% oxygen saturation on 2 L nasal cannula. GENERAL: No acute distress. HEART: Regular rate and rhythm. LUNGS: Clear to auscultation bilaterally. ABDOMEN: Distended. Bowel sounds are present. Diffuse tenderness to palpation, but no guarding rebound or tenderness. EXTREMITIES: 1+ bilateral lower extremity edema. LABORATORY STUDIES: WBC 4.8, hemoglobin 8.4, and platelets 241. Sodium 135, potassium 4.9, BUN 85, and creatinine 6.37. Stool studies over the weekend showed positive C. difficile antigen, though C. difficile toxin, PCR was negative. Campylobacter and E. coli antigens were negative. Stool culture showed yeast and moderate normal agatha. ASSESSMENT AND PLAN: 1. Clostridium difficile colitis. Note, the patient has positive Clostridium difficile antigen, but negative toxin. However, in the context of his ongoing diarrhea and scant hematochezia, need to treat this as real Clostridium difficile colitis infection. Agree with discontinuing the Levaquin and continuing the IV Flagyl while inpatient. I will start him on oral vancomycin 125 mg p.o. 4 times daily. This needs to be continued for 2 weeks. 2. Chronic kidney disease, now with acute on chronic renal failure, planning for dialysis. Dialysis catheter placement is evidently planned for later today. I am hopeful that with treatment of Clostridium difficile, as well as fluid management with dialysis, his chronic abdominal discomfort will improve somewhat. Job ID: [id number]
[2019-04-21] MEDS ORDERED: Bupivacaine HCl 0.5%/Epinephrine 1:200,000/PF 30 ml Vial ONE (17:51)
[2019-04-21] MEDS ORDERED: Heparin 10,000 UNITS/1 ML VIAL ONE (17:51)
[2019-04-21] MEDS ORDERED: Lidocaine 2% PF 5 ML VIAL ONE (17:51)
[2019-04-21] MEDS ORDERED: Sodium Chloride 0.9% 20 ML ONE (17:51)
[2019-04-21] MEDS ORDERED: Fentanyl 100 MCG/2 ML VIAL ONE ×2 (18:07→19:49)
[2019-04-21] MEDS ORDERED: Midazolam HCl 2 mg/2 ml Vial ONE (18:08)
[2019-04-21] MEDS ORDERED: Propofol 1,000 MG/100 ML VIAL IV ONE (18:08)
[2019-04-21] MEDS ORDERED: Oxytocin 10 UNITS/ML VIAL ONE (18:08)
[2019-04-21] MEDS: Vancomycin HCl 25 MG/ML Oral PO SCH ×2 (18:40→22:35)
[2019-04-21] MEDS ORDERED: Promethazine HCl 25 MG/ML VIAL IM PRN (19:42)
--- NOTE | 2019-04-21 19:56 | RAD ---
EXAM: Single view of the chest HISTORY: Shortness of breath COMPARISON: 06/19/2009 FINDINGS: Single view of the chest shows an enlarged but stable cardiomediastinal silhouette. The pa tient is status post sternotomy. There is a dialysis catheter with its tip in the superior vena cava. A left IJ central venous catheter seen with its tip in the superior vena cava. There is no evid ence of consolidation, mass, or pleural effusion. The bones are unremarkable. IMPRESSION: Cardiomegaly without evidence of acute cardiopulmonary disease
--- NOTE | 2019-04-21 21:33 | OP ---
DATE OF PROCEDURE: 04/21/2019 PREOPERATIVE DIAGNOSES: End-stage renal disease and morbid obesity. POSTOPERATIVE DIAGNOSES: End-stage renal disease and morbid obesity. PROCEDURES PERFORMED: Right IJ cuffed tunneled hemodialysis catheter, left IJ central line, ultrasound, fluoroscopy placed from both. ANESTHESIA: Intravenous sedation and local 0.5% Marcaine with epinephrine, 30 mL mixed with 2% Xylocaine, 10 mL. DESCRIPTION OF PROCEDURE: The patient was taken to the operating room, where under IV sedation, neck and chest clipped of hair, prepared with ChloraPrep and draped in routine fashion. Local anesthetic was infiltrated in the skin and subcutaneous tissue about the operative site. Trocar catheter was cannulated in the right and left internal jugular vein under ultrasound guidance, and J-wire was threaded, trocar catheter removed. Skin site was enlarged sharply on both sides of the J-wire entrance site. Stab incision was made over the right chest at the planned exit site for hemodialysis catheter and a Seldinger technique used to place a triple-lumen catheter in left internal jugular vein, removed the J-wire, securing the catheter with 3-0 nylon and sterile dressing applied. On the right side, a tunneling device was used to tunnel the hemodialysis catheter pre-curved [employer] cuffed tunneled between the 2 incisions, placed in the fabric cuff in the skin exit site over the chest, securing the catheter with suture of 3-0 nylon, sterile dressings applied. Small and medium size dilators were placed over the J-wire and into the internal jugular vein and removed. Dilator and Peel-Away sheath placed into the superior vena cava. J-wire and dilator removed. Catheter placed with Peel-Away sheath. Peel-Away sheath removed. Platysma was approximated with 4-0 Monocryl, skin with subdermal 4-0 Monocryl and [place] glue. Each port aspirated and blood flushed with saline solution and heparinized saline solution 1000 units heparin per mL indicating volume of the port. Sterile dressings applied. Fluoroscopy revealed good line placement. Job ID: [id number]
[2019-04-21] MEDS: Ondansetron PF 4 MG/2 ML Vial IVP PRN (22:43)
[2019-04-22] MEDS: Acetaminophen 500 MG TAB PO PRN ×3 (02:40→20:09)
[2019-04-22] MEDS: traMADol HCl 50 MG TAB PO PRN ×2 (02:41→20:10)
[2019-04-22] MEDS: HYDROcodone/Acetaminophen 10/325 mg Tablet PO PRN ×4 (04:48→23:43)
[2019-04-22] MEDS: metroNIDAZOLE 500 MG TAB PO SCH (05:01)
[2019-04-22] MEDS: Vancomycin HCl 25 MG/ML Oral PO SCH ×4 (05:01→23:42)
--- NOTE | 2019-04-22 07:43 | PRG ---
DATE OF SERVICE: 04/22/2019 SUBJECTIVE: Mr. Chacon has started dialysis. No other medical complaints noted today other than being in pain. Stool cultures are negative thus far. He does have a positive C. difficile toxin that is being treated. OBJECTIVE: LUNGS: Clear. HEART: Reveals no murmur. ABDOMEN: Soft. Mild tenderness noted. No evidence of any rebound or guarding. IMPRESSION: 1. Acute renal failure, now on dialysis. 2. Clostridium difficile colitis, now on treatment. PLAN: I think we can probably discontinue his IV antibiotics, metronidazole, and Levaquin. Continue supportive care. Job ID: [id number]
[2019-04-22] MEDS: Sodium Bicarbonate Tab 325 MG TAB PO SCH ×3 (08:26→20:05)
[2019-04-22] MEDS: Atorvastatin Calcium 10 MG TAB PO SCH (08:26)
[2019-04-22] MEDS: Amlodipine 5 MG TAB PO SCH (08:27)
[2019-04-22] MEDS: Heparin 5,000 UNITS/ML VIAL SC SCH ×2 (08:27→20:05)
[2019-04-22] MEDS: Pantoprazole 40 MG VIAL IVP SCH ×2 (08:27→20:05)
[2019-04-22] MEDS: Carvedilol 25 MG TAB PO SCH ×2 (08:27→20:05)
[2019-04-22] MEDS: Clotrimazole/Betamethasone Cream 45 GM TUBE TOP SCH ×2 (08:27→20:13)
[2019-04-22] MEDS ORDERED: Heparin 10,000 UNITS/ 10 ML VIAL ONE (09:00)
[2019-04-22] MEDS ORDERED: Epoetin (ESRD) 20,000 UNITS/ML SC SCH (09:15)
--- NOTE | 2019-04-22 09:47 | PRG ---
DATE OF SERVICE: 04/22/2019 SUBJECTIVE: Mr. Chacon is a 48-year-old white male, who was seen by the Renal Service for his acute kidney injury on top of his chronic renal failure. During this hospitalization, his renal function became progressive. It was unresponsive to volume repletion. He may have a possibility of ATN versus simple progression of his chronic renal failure. Due to the volume overloaded, he has been initiated on dialysis. In addition, the patient complaining of his chronic diffuse pain. He has also history of multiple sclerosis. The patient denies any chest pain or shortness of breath. OBJECTIVE: VITAL SIGNS: Blood pressure is 172/90, heart rate 84, respiratory rate 20, temperature 97.6, and pulse ox 95%. GENERAL: Awake, alert, comfortable, not in overt distress, obese. SKIN: Adequate turgor. HEENT: He has slightly pale conjunctivae. Anicteric sclerae. No neck mass. No carotid bruits. No JVD. CHEST: No deformities. LUNGS: Clear breath sounds. No wheezing. No crackles. HEART: Normal sinus rhythm. No murmurs. No gallops. No rubs. ABDOMEN: Globular, soft, and nontender. No masses. EXTREMITIES: No edema. No deformities. MEDICATIONS: Medications of April 22, 2019, reviewed. LABORATORY DATA: Laboratories of April 21, 2019: Hemoglobin 8.4, BUN 85, creatinine 6.37, and potassium 4.9. ASSESSMENT AND PLAN: 1. Acute kidney injury/chronic renal failure - the patient may have reached end-stage renal disease. We will continue current hemodialysis regimen. The plan is to do a 2-hour hemodialysis today with fluid removal. 2. Anemia. We will initiate Epogen 7500 units subcu weekly. 3. Chronic pain - on [id number] pain medications. This patient will eventually need pain clinic consult. 4. Basic metabolic, CBC for tomorrow. Job ID: [id number]
[2019-04-22] MEDS: Ondansetron PF 4 MG/2 ML Vial IVP PRN ×2 (11:08→20:04)
[2019-04-22] MEDS ORDERED: EPOETIN ALFA-EPBX (ESRD) 10,000 UNIT/ML VIAL SC SCH (12:00)
--- NOTE | 2019-04-22 13:56 | PRG ---
DATE OF SERVICE: 04/22/2019 SUBJECTIVE: I am seeing Mr. Chacon today in dialysis. He had his dialysis catheter placed last night. Today, he continues to endorse full body pain including neck pain, abdominal pain, and back pain. He has had 1 loose bowel movement so far today. He has been feeling a bit nauseated, but no vomiting. PHYSICAL EXAMINATION: VITAL SIGNS: Temperature 97.6, pulse 84, blood pressure 172/90, and 95% oxygen saturation on 2 L nasal cannula. GENERAL: No acute distress. HEART: Regular rate and rhythm. LUNGS: Clear to auscultation bilaterally. ABDOMEN: Distended. Bowel sounds are present. Generalized tenderness to palpation, but no guarding or rebound tenderness. EXTREMITIES: Trace pretibial edema bilaterally. ASSESSMENT AND PLAN: 1. Clostridium difficile colitis. The patient was started on oral vancomycin yesterday. Continue the oral vancomycin 125 mg p.o. 4 times daily for 2 weeks. 2. Acute on chronic renal failure, now starting dialysis yesterday. 3. No further recommendations from a GI perspective at this time. GI will sign off, but please call back anytime with questions or concerns. Job ID: [id number]
[2019-04-23] MEDS: Ondansetron PF 4 MG/2 ML Vial IVP PRN (03:41)
[2019-04-23 04:03] LABS: Red Blood Cell (RBC) Count 3.39 mill/uL (4.70-6.10); White Blood Cell (WBC) Count 5.7 thou/uL (4.8-10.8)
[2019-04-23 04:04] LABS: #Eosinphils 0.1 thou/uL (0.0-0.7); #Monocytes 0.3 thou/uL (0.11-0.59); #Neutrophils 4.4 thou/uL (1.40-6.50); %Eosinophils 1.6 % (0.0-10.0); %Lymphocytes 17.3 % (21.0-51.0); %Monocytes 4.6 % (0.0-10.0); %Neutrophils 76.5 % (42.0-75.0); Hemoglobin 9.3 g/dL (14.0-18.0); Mean Corpuscular HGB CONC 32.8 g/dL (32.0-36.0); Mean Corpuscular Hemoglobin 27.4 pg (27.0-31.0); Mean Corpuscular Volume 83.8 fL (78.0-98.0); Mean Platelet Volume 5.8 fL (7.4-10.4); Platelet Count 310 thou/uL (130-400)
[2019-04-23 04:27] LABS: Anion Gap 13 mmol/L (10-20); BUN (Urea Nitrogen) 50 mg/dL (8.9-20.6); Calc. Creatinine Clearance 31 mL/min (70-130); Calcium 8.6 mg/dL (7.8-10.44); Carbon Dioxide 26 mmol/L (22-29); Chloride 106 mmol/L (98-107); Estimated GFR-MDRD 14; Glucose 89 mg/dL (70-105); Potassium 4.1 mmol/L (3.5-5.1); Sodium 141 mmol/L (136-145)
[2019-04-23] MEDS: Vancomycin HCl 25 MG/ML Oral PO SCH ×3 (05:08→19:31)
[2019-04-23] MEDS: Carvedilol 25 MG TAB PO SCH ×2 (06:26→22:05)
[2019-04-23] MEDS: HYDROcodone/Acetaminophen 10/325 mg Tablet PO PRN (06:28)
[2019-04-23] MEDS ORDERED: cloNIDine 0.1 MG TAB PO SCH (08:00)
[2019-04-23] MEDS: traMADol HCl 50 MG TAB PO PRN ×2 (08:27→22:06)
[2019-04-23] MEDS: Promethazine HCl 25 MG/ML VIAL IM PRN (08:29)
[2019-04-23] MEDS: Heparin 5,000 UNITS/ML VIAL SC SCH ×2 (08:31→22:04)
[2019-04-23] MEDS: Sodium Bicarbonate Tab 325 MG TAB PO SCH ×3 (08:31→22:05)
[2019-04-23] MEDS: Clotrimazole/Betamethasone Cream 45 GM TUBE TOP SCH ×2 (08:31→22:08)
[2019-04-23] MEDS: Pantoprazole 40 MG VIAL IVP SCH ×2 (08:31→22:08)
[2019-04-23] MEDS: Amlodipine 5 MG TAB PO SCH (08:31)
[2019-04-23] MEDS: Atorvastatin Calcium 10 MG TAB PO SCH (08:31)
[2019-04-23] MEDS ORDERED: Heparin 10,000 UNITS/ 10 ML VIAL ONE ×2 (09:00→13:45)
--- NOTE | 2019-04-23 09:52 | PRG ---
DATE OF SERVICE: 04/23/2019 SUBJECTIVE: Mr. Chacon is a 48-year-old white male with multiple sclerosis, chronic pain, and followed up by the Renal Service for his acute kidney injury on top of chronic renal failure. Initially, a prerenal azotemia was suspected, but he remained unimproved in spite of volume repletion. His renal function became worse over time. He was also volume overloaded. We have now initiated dialysis. He may now be reaching ESRD. Still with diffuse joint pains and had a headache. Blood pressure was initially noted 200/101, but he was given clonidine 0.1, and blood pressure is improved in the 180 systolic. No complaints of chest pain or shortness of breath. OBJECTIVE: VITAL SIGNS: Blood pressure 180/70, heart rate 72, respiratory rate 20, temperature 98, and pulse ox 93%. GENERAL: Awake, alert, comfortable, not in distress. SKIN: Adequate turgor. HEENT: Slightly pale conjunctivae. Anicteric sclerae. NECK: No neck mass. No carotid bruits. No JVD. CHEST: No deformities. LUNGS: Decreased breath sounds. No wheezing. HEART: Normal sinus rhythm. No murmur. No gallops. No rubs. ABDOMEN: Globular, soft, nontender. No masses. EXTREMITIES: Trace edema. MEDICATIONS: Medications of April 23, 2019, was reviewed. LABORATORY DATA: Laboratories of April 23, 2019; sodium 141, potassium 4.1, chloride 106, carbon dioxide 26, BUN 50, creatinine 4.58, GFR 14 mL/minute, glucose 89, and calcium 8.6. White count 5.7, hemoglobin 9.3. ASSESSMENT AND PLAN: 1. Chronic renal failure/end-stage renal disease - continuing daily hemodialysis. Our plan is to do a 3-hour hemodialysis today with fluid removal as tolerated. No changes will be made with the current dialysis regimen. 2. Clostridium difficile colitis. Currently, on antibiotics. GI is following. 3. Anemia. Started on Epogen 7500 units subcu weekly. We will also add ferrous sulfate 325 mg p.o. b.i.d. 4. Chronic pain, on [id number]-ibc-aayng narcotics. 5. Agree with current management. Job ID: [id number]
[2019-04-23] MEDS ORDERED: Fentanyl 100 MCG/2 ML VIAL ONE ×2 (13:40→15:50)
[2019-04-23] MEDS ORDERED: Dexamethasone 20 MG/5 ML VIAL ONE (13:45)
[2019-04-23] MEDS ORDERED: Glycopyrrolate 0.2 MG/ML 5 ML SYRINGE ONE (13:45)
[2019-04-23] MEDS ORDERED: Rocuronium Bromide 10 MG/ML (10ML VIAL) ONE (13:45)
[2019-04-23] MEDS ORDERED: Lidocaine 1% PF 5 ML VIAL ONE (13:45)
[2019-04-23] MEDS ORDERED: Ondansetron PF 4 MG/2 ML Vial ONE (13:45)
[2019-04-23] MEDS ORDERED: PROPOFOL 200 MG/20 ML VIAL ONE (13:45)
[2019-04-23] MEDS ORDERED: Protamine Sulfate 50 MG/5 ML VIAL ONE (13:56)
[2019-04-23] MEDS ORDERED: Lidocaine 2% PF 5 ML VIAL ONE (13:56)
[2019-04-23] MEDS ORDERED: Heparin 10,000 UNITS/1 ML VIAL ONE (13:56)
[2019-04-23] MEDS ORDERED: Bupivacaine HCl 0.5%/Epinephrine 1:200,000/PF 30 ml Vial ONE (13:56)
[2019-04-23] MEDS ORDERED: Heparin 5,000 UNITS/ML VIAL ONE (13:58)
--- NOTE | 2019-04-23 14:51 | PRG ---
DATE OF SERVICE: 04/23/2019 SUBJECTIVE: Mr. Chacon is awake and alert. He is still complaining of pain. He is undergoing hemodialysis. OBJECTIVE: VITAL SIGNS: Blood pressure right now is 200/100, temperature 98.0, and O2 saturations 93%. LUNGS: Reveal bilateral breath sounds. HEART: Reveals no murmur. ABDOMEN: Protuberant. No distinct tenderness otherwise noted. LABORATORY DATA: White blood count 5.7, hemoglobin 9.3, and hematocrit 28.4. Sodium 141, potassium 4.1, chloride 106, CO2 of 26, BUN 50, and creatinine 4.58. IMPRESSION: 1. Acute renal failure, now requiring dialysis. 2. Clostridium difficile enteritis, now on therapy. PLAN: Continue current therapy. No other acute findings need to be addressed at this time. Job ID: [id number]
[2019-04-23 15:15] LABS: Routine O & P Final report (.)
[2019-04-23] MEDS ORDERED: SUGAMMADEX SODIUM 500 MG/5 ML VIAL ONE (15:32)
[2019-04-23] MEDS ORDERED: SUGAMMADEX SODIUM 200 MG/2 ML VIAL ONE (15:32)
[2019-04-23] MEDS ORDERED: Promethazine HCl 25 MG/ML VIAL IM PRN (15:53)
[2019-04-23] MEDS ORDERED: Ondansetron HCl/PF 4 MG/2 ML Vial IVP PRN (15:53)
[2019-04-23] MEDS ORDERED: Promethazine HCl 25 MG/ML VIAL SLOW IVP PRN (15:53)
[2019-04-23] MEDS ORDERED: HYDROmorphone 2 MG/ML VIAL SLOW IVP PRN (15:53)
[2019-04-23] MEDS ORDERED: Promethazine HCl 25 MG/ML VIAL ONE (16:02)
[2019-04-23] MEDS: Ferrous Sulfate 325 MG TAB PO SCH (19:31)
--- NOTE | 2019-04-23 21:21 | OP ---
DATE OF PROCEDURE: 04/23/2019 PREOPERATIVE DIAGNOSIS: End-stage renal disease. POSTOPERATIVE DIAGNOSES: 1. End-stage renal disease. 2. Cephalic vein at wrist too small for fistula. PROCEDURE PERFORMED: Exploration of right cephalic vein in wrist, too small for a fistula. Formation of right arm fistula, perforating branch, antecubital vein to proximal radial artery outflow, both cephalic and basilic vein, cephalic vein outflow calibrated to a 4 mm coronary dilator without obstruction. Retrograde antecubital vein preserved. Basilic vein communication preserved. ANESTHESIA: General, local 0.5% Marcaine with epinephrine. DESCRIPTION OF PROCEDURE: The patient was taken to the operating room where under general anesthesia, right upper extremity was prepared with ChloraPrep in routine fashion. Local anesthetic was infiltrated in the skin and subcutaneous tissue about the operative site. Incision made between the radial artery and cephalic vein at the wrist, but the cephalic vein was too small and the subcutaneous tissue was approximated with 3-0 Monocryl, skin with subdermal 4-0 Monocryl and St[place] glue applied. Incision made longitudinally below the antecubital fossa, carried down through skin and subcutaneous tissue and the cephalic vein was of excellent caliber. The perforating branch of antecubital vein dissected free and branches were divided between clips. The patient was given 6000 units of heparin intravenously. The vein dissected free and spatulated over branch point, interrogated with coronary dilators with the above findings. Proximal radial artery was of excellent caliber and large. It was dissected free and after adequate circulation time, vascular clamps applied and vein spatulated accordingly for end vein to side proximal radial artery anastomosis with continuous suture of 6-0 Prolene. Once anastomosis completed, vascular clamps released. There was excellent flow in the fistula and evident by Doppler interrogation in the upper arm. Subcutaneous tissue was approximated with 3-0 Monocryl, skin with subdermal 4-0 Monocryl and Strum glue applied. The patient tolerated the procedure well. Job ID: [id number]
[2019-04-24] MEDS: Vancomycin HCl 25 MG/ML Oral PO SCH ×4 (00:15→18:06)
[2019-04-24] MEDS: HYDROcodone/Acetaminophen 10/325 mg Tablet PO PRN ×4 (00:15→20:40)
[2019-04-24] MEDS: Ferrous Sulfate 325 MG TAB PO SCH ×3 (08:40→18:04)
[2019-04-24] MEDS ORDERED: Tuberculin PPD 0.1 ML VIAL I-DERMAL SCH (08:45)
--- NOTE | 2019-04-24 09:38 | PRG ---
DATE OF SERVICE: 04/24/2019 SUBJECTIVE: Mr. Chacon is a 48-year-old white male, who was seen by the Renal Service for his acute kidney injury on top of his chronic renal failure. He was initially volume repleted with no improvement of the renal function. He may simply reflect disease progression with this patient. He is currently on dialysis. We are removing fluid as tolerated by the patient. No other complaints. OBJECTIVE: VITAL SIGNS: Blood pressure is 171/65, heart rate 92, respiratory rate 18, temperature 98.1, and pulse ox 92%. GENERAL: Awake, alert, comfortable, not in distress. Decreased visual acuity. HEENT: Pinkish conjunctivae. Anicteric sclerae. No neck mass. No carotid bruits. No JVD. CHEST: No deformities. LUNGS: Clear breath sounds. HEART: Normal sinus rhythm. No murmur. No gallops. No rubs. ABDOMEN: Globular, soft, nontender. No masses. EXTREMITIES: Trace edema. No deformities. NEUROLOGICAL: Awake and oriented to 3 spheres. Decreased visual acuity. MEDICATIONS: Medications of April 24, 2019, reviewed. LABORATORY DATA: Laboratories of April 23, 2019, white count 5.7, hemoglobin 9.3. Sodium 141, potassium 4.1, chloride 106, carbon dioxide 26, BUN 50, creatinine 4.58, calcium 8.6. ASSESSMENT AND PLAN: 1. End-stage renal disease/chronic renal failure-hemodialysis has been initiated. Tolerating said treatment. Maxing out fluid removal. 2. Congestive heart failure, maxing fluid removal with dialysis. 3. Anemia, stable. We have initiated Epogen and iron supplementation with this patient. 4. Abdominal pain, clinically much improved. Job ID: [id number]
--- NOTE | 2019-04-24 09:53 | PRG ---
DATE OF SERVICE: 04/24/2019 Humberto Chacon is doing well today. He has a left IJ central line, right IJ hemodialysis catheter cuffed tunneled, and underwent right arm fistula formation yesterday. His wrist was explored, cephalic vein at the wrist was inadequate. This wound was closed. His primary fistula in his right arm has originated from his proximal radial artery, which was of excellent caliber outflow through a perforating branch antecubital vein with dual outflow basilic and cephalic vein. The cephalic vein was huge and should develop nicely. This morning, the surgical wound looks good. He has a good thrill and bruit. He has good hand function. At this point, I will see him as needed in this hospitalization. He should have this triple-lumen catheter removed from the left IJ prior to discharge. He should continue to use his hemodialysis catheter for now. He should see me in the office in the next 3 or 4 weeks. He should exercise and use the right arm frequently. There are no restrictions in right arm or hand use. There are no restrictions in weightlifting on the right arm and exercise as much as possible to facilitate maturation of his fistula. Job ID: [id number]
[2019-04-24] MEDS: Amlodipine 10 MG TAB PO SCH ×2 (10:20→14:09)
--- NOTE | 2019-04-24 11:24 | PRG ---
DATE OF SERVICE: 04/24/2019 SUBJECTIVE: Mr. Chacon is drowsy, tried to arouse and decided let him sleep. OBJECTIVE: VITAL SIGNS: Blood pressure is 164/89, O2 saturations 98% on 2 L, and temperature 97.9. LUNGS: Reveal bilateral breath sounds. HEART: Reveals a regular rate and rhythm. No murmurs, gallops, or rubs. EXTREMITIES: Right arm shows recent surgery from fistula. IMPRESSION: 1. End-stage renal disease, now on hemodialysis. 2. Clostridium difficile colitis. 3. Elevated blood pressure. PLAN: 1. We will increase amlodipine to 10 mg daily. 2. We will review all antibiotics. Stop antibiotics that are appropriate to stop. Continue vancomycin orally. Job ID: [id number]
[2019-04-24] MEDS: Atorvastatin Calcium 10 MG TAB PO SCH (14:08)
[2019-04-24] MEDS: Sodium Bicarbonate Tab 325 MG TAB PO SCH ×4 (14:09→20:40)
[2019-04-24] MEDS: Heparin 5,000 UNITS/ML VIAL SC SCH ×2 (14:10→20:42)
[2019-04-24] MEDS: Carvedilol 25 MG TAB PO SCH ×2 (14:10→20:40)
[2019-04-24] MEDS: Pantoprazole 40 MG VIAL IVP SCH ×2 (14:11→20:42)
[2019-04-24] MEDS: Clotrimazole/Betamethasone Cream 45 GM TUBE TOP SCH ×2 (14:25→20:42)
[2019-04-24] MEDS ORDERED: Heparin 10,000 UNITS/ 10 ML VIAL ONE (15:00)
[2019-04-24] MEDS: traMADol HCl 50 MG TAB PO PRN (18:09)
[2019-04-25] MEDS: Vancomycin HCl 25 MG/ML Oral PO SCH ×5 (00:15→22:56)
[2019-04-25] MEDS: traMADol HCl 50 MG TAB PO PRN ×4 (00:17→21:08)
[2019-04-25] MEDS: HYDROcodone/Acetaminophen 10/325 mg Tablet PO PRN ×4 (05:10→22:56)
--- NOTE | 2019-04-25 07:51 | PRG ---
DATE OF SERVICE: 04/25/2019 SUBJECTIVE: Mr. Chacon seems to be more awake and alert. He verbalizes no complaints. OBJECTIVE: VITAL SIGNS: Temperature 97.6, blood pressure 170/87. LUNGS: Clear. HEART: Reveals no murmur. LABORATORY DATA: No lab is pending at this time. IMPRESSION: 1. Acute renal failure. 2. Clostridium difficile colitis under good control. PLAN: I believe we can start talking about discharge planning at some point. The patient is receiving no significant other medical intervention and dialysis. We will discuss with the other specialty groups. Job ID: [id number]
[2019-04-25] MEDS: Sodium Bicarbonate Tab 325 MG TAB PO SCH ×3 (08:14→21:08)
[2019-04-25] MEDS: Amlodipine 10 MG TAB PO SCH (08:14)
[2019-04-25] MEDS: Atorvastatin Calcium 10 MG TAB PO SCH (08:14)
[2019-04-25] MEDS: Carvedilol 25 MG TAB PO SCH ×2 (08:14→21:08)
[2019-04-25] MEDS: Ferrous Sulfate 325 MG TAB PO SCH ×2 (08:15→17:37)
[2019-04-25] MEDS: Clotrimazole/Betamethasone Cream 45 GM TUBE TOP SCH ×2 (08:15→21:05)
[2019-04-25] MEDS: Heparin 5,000 UNITS/ML VIAL SC SCH ×2 (08:15→21:07)
[2019-04-25] MEDS: Pantoprazole 40 MG VIAL IVP SCH ×2 (08:16→21:07)
--- NOTE | 2019-04-25 10:19 | PRG ---
DATE OF SERVICE: 04/25/2019 SUBJECTIVE: Mr. Chacon is a 48-year-old white male with known history of multiple sclerosis and was seen by the Renal Service due to the progressive azotemia/renal failure. He was also found to be in volume overload. Due to the improved renal function, he was initiating dialysis. He has been tolerating dialysis. Fluid removal has been successful. No new complaints today. OBJECTIVE: VITAL SIGNS: Blood pressure 178/89, heart rate 70, respiratory rate 18, temperature 97.8, and pulse ox 99%. GENERAL: The patient is sleeping, arousable, obese, comfortable, not in distress. SKIN: Adequate turgor. HEENT: Pinkish conjunctivae. Anicteric sclerae. NECK: No neck mass. No carotid bruits. No JVD. CHEST: No deformities. LUNGS: Clear breath sounds. HEART: Normal sinus rhythm. No murmur. No gallops. No rubs. ABDOMEN: Globular, soft, nontender. No masses. EXTREMITIES: No edema. No deformities. MEDICATIONS: Medications of April 25, 2019, reviewed. LABORATORY DATA: Laboratories of April 23, 2019, white count 5.7, hemoglobin 9.3. Sodium 141, potassium 4.1, chloride 106, carbon dioxide 26, BUN 50, creatinine 4.58, calcium 8.6. ASSESSMENT AND PLAN: 1. Chronic renal failure/end-stage renal disease-no evidence of renal recovery. Continuing 3 times a week hemodialysis. No dialysis today. We will resume back dialysis in a.m. We have made arrangements for outpatient dialysis placement. 2. Anemia, stabilizing. We have started this patient on Epogen and iron supplementation. 3. Clostridium difficile colitis, on antibiotics, doing well. Has minimal symptoms at the present time. Overall, agree with current management. Job ID: [id number]
[2019-04-25] MEDS: Ondansetron PF 4 MG/2 ML Vial IVP PRN ×2 (11:31→17:33)
[2019-04-25] MEDS ORDERED: Heparin 10,000 UNITS/ 10 ML VIAL ONE (14:49)
[2019-04-26] MEDS: Acetaminophen 500 MG TAB PO PRN (03:29)
[2019-04-26] MEDS: traMADol HCl 50 MG TAB PO PRN ×3 (03:29→15:10)
[2019-04-26] MEDS: Vancomycin HCl 25 MG/ML Oral PO SCH ×4 (05:15→23:30)
[2019-04-26] MEDS: HYDROcodone/Acetaminophen 10/325 mg Tablet PO PRN ×3 (05:15→23:30)
[2019-04-26] MEDS: Ondansetron PF 4 MG/2 ML Vial IVP PRN ×3 (08:25→21:10)
[2019-04-26] MEDS ORDERED: Zinc Oxide 20% Oint 30 GM TUBE TOP PRN (10:16)
[2019-04-26] MEDS ORDERED: Meperidine HCl/PF 25 MG/ML VIAL SLOW IVP SCH (10:45)
--- NOTE | 2019-04-26 11:42 | PRG ---
DATE OF SERVICE: 04/26/2019 SERVICE: Renal Medicine. SUBJECTIVE: Mr. Chacon is a 48-year-old white male with known history of multiple sclerosis, chronic pain, and followed up by the Renal Service for his acute kidney injury on top of his chronic renal failure. He had progressive azotemia and developed volume overload. For that reason, hemodialysis have been initiated. He is currently being dialyzed at the present time. I am at the bedside supervising his dialysis. No other complaints except for chronic diffuse myalgia/joint pains. OBJECTIVE: VITAL SIGNS: Blood pressure 156/85, heart rate 66, respiratory rate 20, temperature 97.9, and pulse ox 96%. GENERAL: Noted to be awake, alert, not in overt distress. Obese. SKIN: Adequate turgor. HEENT: He has slightly pale conjunctivae. Anicteric sclerae. NECK: No neck mass. No carotid bruits. No JVD. CHEST: No deformities. LUNGS: Clear breath sounds. No wheezing. No crackles. HEART: Normal sinus rhythm. No murmur. No gallops. No rubs. ABDOMEN: Globular, soft, nontender. No masses. EXTREMITIES: Trace edema. MEDICATIONS: Medications of April 26, 2019, were reviewed. LABORATORY DATA: Laboratories of April 23, 2019, white count 5.7, hemoglobin 9.3. Sodium 141, potassium 4.1, chloride 106, carbon dioxide 26, BUN 50, creatinine 4.58, glucose 89, and calcium 8.6. ASSESSMENT AND PLAN: 1. Chronic renal failure/end-stage renal disease, continuing 3 times a week hemodialysis, maxing out fluid removal as tolerated by the patient. 2. Congestive heart failure, clinically much improved, maxing out fluid removal with his concomitant dialysis. We are currently awaiting outpatient dialysis placement with this patient. 3. Anemia, stable. The patient is on weekly Epogen. Overall, agree with current management. Recheck basic metabolic and CBC in a.m. Job ID: [id number]
[2019-04-26] MEDS: Heparin 5,000 UNITS/ML VIAL SC SCH ×2 (12:17→21:30)
[2019-04-26] MEDS: Pantoprazole 40 MG VIAL IVP SCH ×2 (12:18→21:23)
[2019-04-26] MEDS: Ferrous Sulfate 325 MG TAB PO SCH ×2 (13:02→16:21)
[2019-04-26] MEDS: Sodium Bicarbonate Tab 325 MG TAB PO SCH ×3 (13:02→21:23)
[2019-04-26] MEDS: Carvedilol 25 MG TAB PO SCH ×2 (13:02→21:23)
[2019-04-26] MEDS: Clotrimazole/Betamethasone Cream 45 GM TUBE TOP SCH (13:03)
[2019-04-26] MEDS: Amlodipine 10 MG TAB PO SCH (16:21)
[2019-04-26] MEDS: Atorvastatin Calcium 10 MG TAB PO SCH (16:21)
--- NOTE | 2019-04-26 18:15 | PRG ---
DATE OF SERVICE: 04/26/2019 HISTORY OF PRESENT ILLNESS: The patient is tolerating induction of hemodialysis well. Has transition towards Sunday, , Sunday schedule, getting dialysis today for 4 hours, 5 L were reportedly removed during dialysis today. Blood pressure downtrending including the patient tolerating amlodipine increase well. The patient states he has chronic pain. Tramadol is not fully touching his pain. Demerol has worked in the past. Morphine causes a med agitation regarding intolerance rather than allergy. The patient verbalized understanding regarding multiple doses of Demerol may build up with the hemodialysis patient to seizure activity, attempting Suboxone treatment. Pain Management states they will be by on Sunday to see if they can assist with anything else. The patient's pain locations include back and while bedbound to buttocks. The patient is tolerating oral vancomycin at this point in time. Breathing appears stable on nasal cannula. The patient has a longstanding history of multiple sclerosis. Reported asthma, however, denies any current sputum production regarding COPD transition. PHYSICAL EXAMINATION: VITAL SIGNS: Temperature 98.0, pulse 67, respiratory rate of 18, oxygen saturation of 96%, blood pressure 148/72. GENERAL: Today, the patient is alert and oriented, in no acute distress. HEENT: Head is normocephalic, atraumatic. Extraocular movements are erratic. The patient is legally blind. Pupils slightly opacified. Oral mucosa is moist. NECK: Supple. HEART: Regular rate and rhythm. No murmurs auscultated. Central line to right subclavian in place via tunneled catheter. LUNGS: Clear to auscultation bilaterally. No rubs or wheezes. Nasal cannula in place and nose. ABDOMEN: Protuberant, soft, nontender. EXTREMITIES: Lower extremities without cyanosis or edema. NEUROLOGIC: The patient is alert and oriented x3. No focal deficits. Speech is normal. ASSESSMENT AND PLAN: Acute renal failure with successful induction of hemodialysis, Clostridium difficile colitis, normocytic anemia, yeast dermatitis of groin, hypertension, chronic pain, legally blind, multiple sclerosis history, oxygen use secondary to history of asthma, possible chronic obstructive pulmonary disease, currently at baseline. The patient is stable on 2 L nasal cannula. Pain Management consultation pending on Sunday, initiating one time dose of Demerol, would reconsider after each day of dialysis to clear metabolites. Continuing tramadol, attempting Suboxone transmucosal film, transitioning yeast creams to include barrier cream for better coverage as the patient reports a skin break and some bleeding. Dr. Yao reports may consider Epogen regarding anemia. Continuing oral vancomycin for Clostridium difficile colitis. Awaiting Case Management for setup of outpatient dialysis, potential discharge likely Sunday or Sunday once that is set up. Job ID: [id number]
[2019-04-26] MEDS ORDERED: Buprenorphine 8mg/Naloxone 2mg per 1 FILM PO SCH (21:00)
[2019-04-26] MEDS ORDERED: Nystatin/Triamcinolone Cream 30 GM TUBE TOP SCH (21:00)
[2019-04-26] MEDS: Nystatin/Triamcinolone Cream 15 GM TUBE TOP SCH (23:35)
[2019-04-27] MEDS: traMADol HCl 50 MG TAB PO PRN (05:55)
[2019-04-27] MEDS: Vancomycin HCl 25 MG/ML Oral PO SCH ×4 (05:56→23:08)
[2019-04-27 06:42] LABS: #Eosinphils 0.1 thou/uL (0.0-0.7); #Monocytes 0.4 thou/uL (0.11-0.59); #Neutrophils 4.7 thou/uL (1.40-6.50); %Basophils 0.5 % (0.0-1.0); %Lymphocytes 16.1 % (21.0-51.0); %Monocytes 6.6 % (0.0-10.0); %Neutrophils 75.8 % (42.0-75.0); Hemoglobin 8.5 g/dL (14.0-18.0); Mean Corpuscular HGB CONC 32.4 g/dL (32.0-36.0); Mean Corpuscular Hemoglobin 27.5 pg (27.0-31.0); Mean Corpuscular Volume 84.9 fL (78.0-98.0); Mean Platelet Volume 5.8 fL (7.4-10.4); Platelet Count 198 thou/uL (130-400); RBC Distribution Width 13.8 % (11.5-14.5); Red Blood Cell (RBC) Count 3.08 mill/uL (4.70-6.10); White Blood Cell (WBC) Count 6.2 thou/uL (4.8-10.8)
[2019-04-27 06:54] LABS: Anion Gap 14 mmol/L (10-20); BUN (Urea Nitrogen) 20 mg/dL (8.9-20.6); Calc. Creatinine Clearance 42 mL/min (70-130); Calcium 8.6 mg/dL (7.8-10.44); Carbon Dioxide 28 mmol/L (22-29); Chloride 99 mmol/L (98-107); Estimated GFR-MDRD 19; Glucose 89 mg/dL (70-105); Phosphorus 4.5 mg/dL (2.3-4.7); Potassium 3.5 mmol/L (3.5-5.1); Sodium 137 mmol/L (136-145)
[2019-04-27] MEDS: Heparin 5,000 UNITS/ML VIAL SC SCH ×2 (08:52→20:59)
[2019-04-27] MEDS: Ferrous Sulfate 325 MG TAB PO SCH ×2 (08:52→15:42)
[2019-04-27] MEDS: Pantoprazole 40 MG VIAL IVP SCH ×2 (08:53→20:59)
[2019-04-27] MEDS: Ondansetron PF 4 MG/2 ML Vial IVP PRN ×3 (08:56→20:57)
[2019-04-27] MEDS: Nystatin/Triamcinolone Cream 15 GM TUBE TOP SCH ×2 (09:02→20:59)
[2019-04-27] MEDS: HYDROcodone/Acetaminophen 10/325 mg Tablet PO PRN ×2 (09:28→20:58)
[2019-04-27] MEDS: Amlodipine 10 MG TAB PO SCH ×2 (09:37→11:02)
[2019-04-27] MEDS: Sodium Bicarbonate Tab 325 MG TAB PO SCH ×4 (09:37→20:58)
[2019-04-27] MEDS: Carvedilol 25 MG TAB PO SCH ×3 (09:37→20:58)
[2019-04-27] MEDS: Atorvastatin Calcium 10 MG TAB PO SCH ×2 (09:37→11:02)
--- NOTE | 2019-04-27 10:37 | PRG ---
DATE OF SERVICE: SUBJECTIVE: Mr. Chacon is a 48-year-old white male, followed up for his chronic renal failure/end-stage renal disease. He has been receiving dialysis. He tolerated the said treatment yesterday without any difficulty. Fluid removal was also tolerated. Still complaining of diffuse myalgia and pain. Please note he has longstanding history of chronic pain as well as multiple sclerosis. He denies any chest pain or shortness of breath. OBJECTIVE: VITAL SIGNS: Blood pressure is 151/82, heart rate 65, respiratory rate 18, temperature 98, pulse ox 100%. GENERAL: Noted to be awake, sitting, comfortable, not in distress. SKIN: Adequate turgor. HEENT: He has slightly pale conjunctivae. Anicteric sclerae. Decreased visual acuity. NECK: No neck mass. No carotid bruits. No JVD. LUNGS: Clear breath sounds. No wheezing. No crackles. HEART: Normal sinus rhythm. No murmur. No gallops. No rubs. ABDOMEN: Globular, soft, nontender. No masses. EXTREMITIES: No edema. No deformities. MEDICATIONS: Medications of April 27, 2019, were reviewed. LABORATORY DATA: Laboratories of April 27, 2019, white count 6.2, hemoglobin 8.5. Sodium 137, potassium 3.5, chloride 99, carbon dioxide 28, BUN 20, creatinine 3.37. PTH is 665, phosphorus is 4.5. ASSESSMENT AND PLAN: 1. End-stage renal disease/chronic renal failure, tolerating hemodialysis. Continue 3 times a week hemodialysis regimen. Fluid removal as tolerated. 2. Chronic anemia-the patient is currently on weekly Epogen. Continue Epogen supplementation. 3. Secondary hyperparathyroidism, on calcitriol. Intact PTH was noted at 666-start calcitriol 0.25 mcg tablet daily. 4. Chronic pain. Continue supportive care. Continue p.r.n. pain medications. Eventually, the patient will be referred for outpatient management by the Pain Clinic. Job ID: [id number]
[2019-04-27] MEDS: HYDROmorphone 2 MG TAB PO PRN ×2 (15:41→23:06)
--- NOTE | 2019-04-27 18:47 | PRG ---
DATE OF SERVICE: 04/27/2019 HISTORY OF PRESENT ILLNESS: The patient states Demerol helped him well, who verbalized understanding regarding potential seizure risk from continued metabolite buildup, still not getting much relief from tramadol, however, does take the edge off his pain. Did not get much benefit from Suboxone, buprenorphine buccal film. The patient awaits Case Management for outpatient hemodialysis setup for currently Sunday, , Sunday, otherwise appears stable. Compliant with oral vancomycin for Clostridium difficile colitis with slow improvement of stools. Nephrology tracking parathyroid currently. The patient has a history of bad lungs, however, denies the use of oxygen at home, still feeling more comfortable on 2 L nasal cannula. LABORATORY DATA: Sodium 137, potassium of 3.5, creatinine of 3.3, parathyroid hormone at 666. White blood cell count of 6.2, hemoglobin of 8.5, and platelet count of 198. Hepatitis panel is normal, negative. PHYSICAL EXAMINATION: VITAL SIGNS: Temperature of 98.0, pulse of 65, respiratory rate 18, 100% saturation at 2 L nasal cannula, and blood pressure 151/82. GENERAL: The patient is alert, no acute distress. HEENT: Head is normocephalic and atraumatic. Extraocular movements are intact; however, slightly opacified pupils bilaterally. The patient is legally blind. Oral mucosa is moist. NECK: Supple. HEART: Regular rate and rhythm at the time of exam. No murmurs auscultated. LUNGS: Clear to auscultation bilaterally. No rubs or wheezes. ABDOMEN: Soft, nontender, protuberant. EXTREMITIES: Lower extremities without cyanosis or edema. On tunneled catheter to right anterior chest wall. NEUROLOGIC: The patient is alert and oriented x3. No focal deficits. Speech is normal. ASSESSMENT AND PLAN: Renal failure, status post induction of hemodialysis, Clostridium difficile colitis. Continuing oral vancomycin. Elevated parathyroid hormone. Defaulting management to Nephrology. Chronic obstructive pulmonary disease/asthma. We will likely look at repeating chest x-ray and weaning oxygen. Multiple sclerosis, chronic pain, working with the patient as he reports allergy to morphine. Attempting extremely low-dose oral Dilaudid at this point, q.8-hour frequency. Had ordered barrier cream for groin given skin breakdown. Await Case Management setup for outpatient hemodialysis. Likely, discharge in the next 1 to 2 days. Job ID: [id number]
[2019-04-28] MEDS: HYDROcodone/Acetaminophen 10/325 mg Tablet PO PRN ×3 (02:35→21:11)
[2019-04-28] MEDS: Vancomycin HCl 25 MG/ML Oral PO SCH ×3 (05:36→16:51)
[2019-04-28] MEDS: Calcitriol 0.25 MCG CAP PO SCH (08:16)
[2019-04-28] MEDS: Pantoprazole 40 MG VIAL IVP SCH ×2 (08:16→21:13)
[2019-04-28] MEDS: Amlodipine 10 MG TAB PO SCH (08:17)
[2019-04-28] MEDS: Sodium Bicarbonate Tab 325 MG TAB PO SCH ×3 (08:17→21:13)
[2019-04-28] MEDS: Carvedilol 25 MG TAB PO SCH ×2 (08:17→21:12)
[2019-04-28] MEDS: Ferrous Sulfate 325 MG TAB PO SCH ×2 (08:18→16:57)
[2019-04-28] MEDS: Atorvastatin Calcium 10 MG TAB PO SCH (08:18)
[2019-04-28] MEDS: Heparin 5,000 UNITS/ML VIAL SC SCH ×2 (08:18→21:15)
[2019-04-28] MEDS: HYDROmorphone 2 MG TAB PO PRN ×2 (08:18→16:52)
[2019-04-28] MEDS: Nystatin/Triamcinolone Cream 15 GM TUBE TOP SCH ×2 (08:59→21:22)
--- NOTE | 2019-04-28 09:49 | PRG ---
DATE OF SERVICE: 04/28/2019 SUBJECTIVE: Mr. Chacon is a 48-year-old white male, who was seen by the Renal Service for his acute kidney injury/chronic renal failure. He developed progressive azotemia without improvement in volume repletion. He has now been placed on dialysis. He is tolerating the said dialysis treatment. The patient still has chronic pain. He is supposed to be evaluated by the Pain Clinic. No complaints of chest pain or shortness of breath. OBJECTIVE: VITAL SIGNS: Blood pressure is 170/90, heart rate 61, respiratory rate 18, temperature 97.8, pulse ox 100%. GENERAL EXAM: Noted to be awake, alert. SKIN: Adequate turgor. HEENT: He has a slightly pale conjunctivae. Anicteric sclerae. Decreased visual activity. NECK: No neck mass. No carotid bruits. No JVD. LUNGS: Clear breath sounds. No wheezing. No crackles. HEART: Normal sinus rhythm. No murmur. No gallops. No rubs. ABDOMEN: Globular, soft, nontender. No masses. EXTREMITIES: No edema. No deformities. MEDICATIONS: Medications of April 28, 2019, was reviewed. LABORATORY DATA: Laboratories of April 27, 2019, sodium 137, potassium 3.5, chloride 99, carbon dioxide 28, BUN is 20, creatinine 3.37, phosphorus 4.5, calcium 8.6. PTH was 666. ASSESSMENT AND PLAN: 1. End-stage renal disease/chronic renal failure. Continuing current hemodialysis regimen Sunday, , and Sunday. Fluid removal only as tolerated. 2. Congestive heart failure, clinically much improved with fluid removal. 3. Chronic anemia, on weekly Epogen. 4. Chronic pain-the patient to follow up with the Pain Clinic. 5. Secondary hyperparathyroidism-calcitriol 0.25 mcg tablet daily was started. Job ID: [id number]
[2019-04-28] MEDS: Ondansetron PF 4 MG/2 ML Vial IVP PRN ×2 (09:59→17:51)
--- NOTE | 2019-04-28 11:49 | PRG ---
DATE OF SERVICE: 04/28/2019 SUBJECTIVE: Mr. Chacon is awake and alert, sitting up in bed, still verbalizes, complaints of pain. OBJECTIVE: VITAL SIGNS: On exam, temperature of 97.8, O2 sats 100% on room air, and blood pressure 168/89. LUNGS: Bilateral breath sounds. HEART: Reveals no murmur. EXTREMITIES: Show no edema. IMPRESSION: 1. Acute renal failure, now appears to be end-stage renal disease. 2. History of Clostridium difficile colitis, currently under therapy. PLAN: The patient is medically stable to be discharged. He needs to get set up for outpatient dialysis once the cystotomy probably can get him transferred home. I was informed by the that he may need some transportation to and from dialysis. I will notify binder caser of this. Job ID: [id number]
[2019-04-28] MEDS ORDERED: Heparin 10,000 UNITS/ 10 ML VIAL ONE (15:00)
[2019-04-29] MEDS: HYDROmorphone 2 MG TAB PO PRN (00:22)
[2019-04-29] MEDS: Ondansetron PF 4 MG/2 ML Vial IVP PRN (00:22)
[2019-04-29] MEDS: Vancomycin HCl 25 MG/ML Oral PO SCH ×4 (00:22→17:20)
[2019-04-29] MEDS: Acetaminophen 500 MG TAB PO PRN (05:14)
[2019-04-29] MEDS: HYDROcodone/Acetaminophen 10/325 mg Tablet PO PRN ×3 (08:52→17:20)
--- NOTE | 2019-04-29 09:39 | PRG ---
DATE OF SERVICE: 04/29/2019 SERVICE: Renal Medicine. SUBJECTIVE: Mr. Chacon is a 48-year-old white male being followed up by the Renal Service for his chronic renal failure/ESRD. He was admitted with elevated BUN and creatinine, which remain unimproved in spite of volume repletion. Due to the volume overload and progressive azotemia, he has been initiated dialysis. He is currently undergoing hemodialysis today. Our plan is to continue 3 times a week hemodialysis. Fluid removal only as tolerated. His shortness of breath has also much improved, and generalized edema has dramatically improved also. No other complaints today except for his chronic diffuse joint pains and back pain. OBJECTIVE: VITAL SIGNS: Blood pressure is 169/87, heart rate 69, respiratory rate 18, temperature 98.3, and pulse ox 100%. GENERAL: Noted to be awake, alert, sitting comfortable, not in distress. SKIN: Adequate turgor. HEENT: He has a slightly pale conjunctivae. Anicteric sclerae. NECK: No neck mass. No carotid bruits. No JVD. CHEST: No deformities. LUNGS: Decreased clear breath sounds. No wheezing. No crackles. HEART: Normal sinus rhythm. No murmur. No gallops or rubs. ABDOMEN: Globular, soft, nontender. No masses. EXTREMITIES: No edema. No deformities. MEDICATIONS: Medications of April 29, 2019, were reviewed. LABORATORY DATA: Laboratories of April 27, 2019, white count 6.2 and hemoglobin 8.5. Sodium 137, potassium 3.5, chloride 99, carbon dioxide 28, BUN 20, creatinine 3.37, glucose 89, calcium 8.6, and phosphorus 4.5. ASSESSMENT AND PLAN: 1. End-stage renal disease, stable, continuing current hemodialysis regimen. Fluid removal only as tolerated. 2. Anemia. Continue ferrous sulfate and Epogen regimen. Adjust as needed. 3. Congestive heart failure/volume overload, clinically much improved with fluid removal with dialysis. 4. Chronic pain. Continue Pain Management, refer to outpatient pain clinic. 5. Agree with current management. Job ID: [id number]
--- NOTE | 2019-04-29 10:36 | PRG ---
DATE OF SERVICE: 04/29/2019 SUBJECTIVE: He still complain of some pain today; however, he has no other complaints. OBJECTIVE: VITAL SIGNS: Temperature is 98.0, BP 168/84, and O2 saturations 98% on room air. LUNGS: Bilateral breath sounds. HEART: Reveals a regular rate and rhythm. No murmurs, gallops, or rubs. IMPRESSION: 1. The patient has end-stage renal disease at this time, now on dialysis. 2. History of Clostridium difficile colitis, almost completed therapy. PLAN: The patient is stable for medical discharge. Once he gets dialysis bed, he can be safely discharged home. Job ID: [id number]
[2019-04-29] MEDS: Carvedilol 25 MG TAB PO SCH (10:59)
[2019-04-29] MEDS: Heparin 5,000 UNITS/ML VIAL SC SCH (10:59)
[2019-04-29] MEDS: Ferrous Sulfate 325 MG TAB PO SCH ×2 (10:59→17:20)
[2019-04-29] MEDS: Sodium Bicarbonate Tab 325 MG TAB PO SCH ×2 (11:00→13:31)
[2019-04-29] MEDS: Pantoprazole 40 MG VIAL IVP SCH (11:00)
[2019-04-29] MEDS: Nystatin/Triamcinolone Cream 15 GM TUBE TOP SCH (11:00)
[2019-04-29] MEDS: Atorvastatin Calcium 10 MG TAB PO SCH (13:31)
[2019-04-29] MEDS: Amlodipine 10 MG TAB PO SCH (13:31)
[2019-04-29] MEDS: Calcitriol 0.25 MCG CAP PO SCH (13:31)
[2019-04-29] MEDS ORDERED: Heparin 10,000 UNITS/1 ML VIAL ONE (15:00)
[2019-04-29] MEDS ORDERED: EPOETIN ALFA-EPBX (ESRD) 4,000 UNIT/ML VIAL SC SCH (15:30)
[2019-04-29 17:30] VITALS: BP 133/74; TEMP 97.8
== END 2019-04-29 17:44 | disposition home or self-care (01) | DRG 264 ==
LOC: ERS 17:51 → ERHOLD 23:18 → 3SE 04-15 09:41 → 2NO 04-15 14:27 → T4-A 04-18 13:25
PROVIDERS: ADMIT Family Medicine; ATTEND Family Medicine
PROC: 0JH63XZ Insertion of Tunneled Vascular Access Device into Chest Subcutaneous Tissue and Fascia, Percutaneous Approach (ICD-10-PCS; 2019-04-21)
PROC: 02HV33Z Insertion of Infusion Device into Superior Vena Cava, Percutaneous Approach (ICD-10-PCS; 2019-04-21)
PROC: B5181ZA Fluoroscopy of Superior Vena Cava using Low Osmolar Contrast, Guidance (ICD-10-PCS; 2019-04-21)
PROC: B548ZZA Ultrasonography of Superior Vena Cava, Guidance (ICD-10-PCS; 2019-04-21)
PROC: 5A1D70Z Performance of Urinary Filtration, Intermittent, Less than 6 Hours Per Day (ICD-10-PCS; 2019-04-21)
PROC: 031B0ZF Bypass Right Radial Artery to Lower Arm Vein, Open Approach (ICD-10-PCS; principal; 2019-04-23)
DX: I13.2 Hypertensive heart and chronic kidney disease with heart failure and with stage 5 chronic kidney disease, or end stage renal disease (principal); N17.0 Acute kidney failure with tubular necrosis; N18.6 End stage renal disease; E87.1 Hypo-osmolality and hyponatremia; R18.8 Other ascites; A04.72 Enterocolitis due to Clostridium difficile, not specified as recurrent; N25.81 Secondary hyperparathyroidism of renal origin; D63.1 Anemia in chronic kidney disease; G89.29 Other chronic pain; K57.30 Diverticulosis of large intestine without perforation or abscess without bleeding; G35 Multiple sclerosis; H54.7 Unspecified visual loss; E78.5 Hyperlipidemia, unspecified; K52.9 Noninfective gastroenteritis and colitis, unspecified; E86.0 Dehydration; I25.10 Atherosclerotic heart disease of native coronary artery without angina pectoris; I87.2 Venous insufficiency (chronic) (peripheral); J45.909 Unspecified asthma, uncomplicated; K76.89 Other specified diseases of liver; E66.01 Morbid (severe) obesity due to excess calories; F17.210 Nicotine dependence, cigarettes, uncomplicated; Z95.5 Presence of coronary angioplasty implant and graft; I25.2 Old myocardial infarction; Z95.1 Presence of aortocoronary bypass graft; Z88.6 Allergy status to analgesic agent; Z88.0 Allergy status to penicillin; Z88.2 Allergy status to sulfonamides; Z88.8 Allergy status to other drugs, medicaments and biological substances; Z79.82 Long term (current) use of aspirin; Z79.899 Other long term (current) drug therapy; Z68.36 Body mass index [BMI] 36.0-36.9, adult
CPT/HCPCS: 36415; 36416; 71045; 74176; 76000; 76705; 80048; 80053; 81003; 81015; 83690; 83970; 84100; 85025; 86580; 86704; 86706; 86803; 87040; 87045; 87046; 87177; 87324; 87340; 87449; 87493; 87899; 90935; 93970; C1752; C1769; C9113; G0257; G0365; J0670; J1100; J1644; J1650; J1885; J1940; J1956; J2001; J2175; J2250; J2405; J2550; J2590; J2704; J2720; J3010; P9047; Q0162; Q5105

== ENCOUNTER 2019-06-20 07:28 | Outpatient (CLI) | payer OTHER, MEDICARE ==
--- NOTE | 2019-06-20 08:34 | CT ---
CT ABDOMEN WITHOUT CONTRAST: HISTORY: C. difficile colitis; constipation; lesion of liver COMPARISON: 04/16/2019 DISCLAIMER: Absence of oral and IV contrast reduces the sensitivity of the exam particularly for the evaluation of solid organs and bowel. The possibility of a liver mass cannot be excluded on this exam due to the absence of IV contrast. FINDINGS: The lung bases are unremarkable. Changes of cholecystectomy, hepato-splenomegaly and colonic diverti culosis are again seen. There is been interval resolution of the fluid collection in the gastrohepatic ligament. A small amount of ascites is present. No calculi are seen in the kidneys are visualized portions of the ureters. No hydroureteronephrosis is noted on either side. Left renal cysts are again noted. There are vascular calcifications without evidence of aneurysmal dilatation of the abdominal aorta. There are degenerative changes in the spine. No free air is seen. IMPRESSION: Interval improvement since 04/16/2019.
== END 2019-06-20 07:29 | disposition home or self-care (01) ==
LOC: SCSCT 07:28
PROVIDERS: ATTEND Internal Medicine
DX: A04.72 Enterocolitis due to Clostridium difficile, not specified as recurrent (principal); K76.9 Liver disease, unspecified; K59.00 Constipation, unspecified
CPT/HCPCS: 74150

== ENCOUNTER 2020-05-17 09:28 | Outpatient (CLI) | payer OTHER, MEDICARE ==
--- NOTE | 2020-05-17 10:38 | CT ---
CT Abdomen Pelvis WO Con 05/17/2020 12:00 AM HISTORY: Abdominal pain and vomiting after eating for 3 months. Weight loss. COMPARISON: 06/20/2019 Technique: Multiple contiguous axial CT images are obtained through the abdomen and pelvis without IV contrast. Coronal reformats are provided. FINDINGS: This examination is limited for the evaluation of solid organs and vascular structures due to the lac k of intravenous contrast. Lower Chest: Lung bases are clear. Vascular calcifications are seen in the coronary arteries. Abdomen: Liver: Mildly enlarged in craniocaudal dimensions measuring 20 cm. Gallbladder: Surgically absent. Pancreas: Grossly normal nonenhanced CT appearance. Spleen: Markedly enlarged measuring 20.7 cm in craniocaudal dimensions. This was also seen on prior e xam. Adrenals: Subcentimeter fat density lesion associated with the right adrenal gland likely due to smal l myolipoma. Kidneys: There is a stable slightly heterogeneous lesion midportion right kidney no hydronephrosis or renal calculus is seen. With stable subcentimeter exophytic hypodense lesion at the superior pole right kidney. There are also stable hypodense lesions involving the left kidney which are difficult t o characterize but statistically likely represent cysts. Ureters: No ureteral calculus is seen.. Pelvis: Urinary bladder: Decompressed but grossly within normal limits. Reproductive Organs: No pelvic masses. Lymph Nodes: There is mild increase in aortocaval lymph nodes which are not enlarged by CT size crite abilio. This is stable when compared to prior studies as well as stable when compared study of 02/24/2019. Bowel: Again noted is colonic diverticulosis diffusely throughout the colon. Appendix: The appendix is normal in caliber. Peritoneum: No free fluid, free air, or fluid collection. Retroperitoneum: within normal limits. Vessels: Vascular calcifications are again seen.. Abdominal Wall: Small fat-containing umbilical hernia is present with tiny ventral abdominal hernia i n the upper abdomen. Bones: No suspicious lytic or sclerotic osseous lesions are identified. IMPRESSION: 1. No renal or ureteral calculi are seen bilaterally. 2. Stable bilateral renal lesions difficult to characterize on this exam. 3. Hepatosplenomegaly also seen on prior exams. 4. Colonic diverticulosis. 5. Postcholecystectomy changes. 6. Right adrenal myolipoma. 7. Tiny ventral abdominal wall fat-containing hernias.
== END 2020-05-17 09:29 | disposition home or self-care (01) ==
LOC: SCSCT 09:28
PROVIDERS: ATTEND Internal Medicine
DX: R10.84 Generalized abdominal pain (principal); R11.2 Nausea with vomiting, unspecified; N28.9 Disorder of kidney and ureter, unspecified; R16.2 Hepatomegaly with splenomegaly, not elsewhere classified; K57.30 Diverticulosis of large intestine without perforation or abscess without bleeding; K43.9 Ventral hernia without obstruction or gangrene; D17.79 Benign lipomatous neoplasm of other sites; Z90.49 Acquired absence of other specified parts of digestive tract
CPT/HCPCS: 74176

== ENCOUNTER 2021-10-10 14:25 | Outpatient (CLI) | payer OTHER, MEDICARE | END 2021-10-10 14:26 | disposition home or self-care (01) | LOC: BICRAD 14:25 | PROVIDERS: ATTEND Family Medicine | DX: J44.9 Chronic obstructive pulmonary disease, unspecified (principal); R91.8 Other nonspecific abnormal finding of lung field | CPT/HCPCS: 71046 ==

== ENCOUNTER 2022-02-24 15:59 | Inpatient (IN) | payer OTHER, MEDICARE ==
[2022-02-24] MEDS ORDERED: HYDROmorphone 0.5 MG/0.5 ML SYRINGE ONE (16:39)
[2022-02-24] MEDS ORDERED: Acetaminophen 325 MG TAB PO PRN (18:15)
[2022-02-24] MEDS ORDERED: Ondansetron PF 4 MG/2 ML Vial IVP PRN (18:15)
[2022-02-24] MEDS ORDERED: Ondansetron ODT 4 MG TAB SL PRN (18:15)
[2022-02-24] MEDS ORDERED: Sodium Chloride 0.9% 1,000 ML IV SCH (18:15)
[2022-02-24] MEDS ORDERED: HYDROmorphone 0.5 MG/0.5 ML SYRINGE SLOW IVP SCH (20:15)
[2022-02-24] MEDS ORDERED: Acetaminophen 650 MG Suppository PR PRN (20:18)
[2022-02-24] MEDS ORDERED: niCARdipine 25 MG in Sodium Chloride 0.9% 250 ML 250 ML IVPB PRN (20:18)
[2022-02-24] MEDS: Gabapentin 300 MG CAP PO SCH ×2 (20:52→22:14)
[2022-02-24 21:07] LABS: Actual Bicarbonate (HCO3a) 24.1 mEq/L (22-28); Base Excess (BEa) -1.5 mEq/L (-2.0 to +3.0); Calcium, Ionized (arterial) 1.18 mmol/L (1.12-1.30); Carboxyhemoglobin (COHb) 3.9 gm% (0.0-3.0); Hemoglobin (Hb) 10.6 g/dL (14.0-18.0); O2 Tension (PaO2), arterial 80.2 mmHg (80.0-100.0); Potassium - ABG Lab 4.95 mmol/L (3.70-5.30); pH, Arterial 7.36 (7.35-7.45)
[2022-02-24 21:08] LABS: Puncture Site LRA
[2022-02-24] MEDS ORDERED: methylPREDNISolone Sod Succ/PF 125 MG/2 ML VIAL IVP SCH (21:15)
[2022-02-24] MEDS ORDERED: levETIRAcetam 500 MG/5 ML VIAL SLOW IVP SCH (21:15)
[2022-02-24] MEDS ORDERED: Lorazepam 2 MG/ML VIAL SLOW IVP SCH ×2 (21:15→21:30)
[2022-02-24] MEDS: Dextrose 5% in Water 1,000 ML IV SCH (21:17)
[2022-02-24 21:25] LABS: #Eosinphils 0.1 thou/uL (0.0-0.7); #Lymphocytes 1.7 thou/uL (1.20-3.40); #Monocytes 0.6 thou/uL (0.11-0.59); %Basophils 0.3 % (0.0-1.0); %Eosinophils 1.5 % (0.0-10.0); %Lymphocytes 19.9 % (21.0-51.0); %Neutrophils 71.4 % (42.0-75.0); Hemoglobin 9.8 g/dL (14.0-18.0); Mean Corpuscular HGB CONC 31.9 g/dL (32.0-36.0); Mean Corpuscular Hemoglobin 27.4 pg (27.0-31.0); Mean Platelet Volume 5.6 fL (7.4-10.4); Platelet Count 205 thou/uL (130-400); Red Blood Cell (RBC) Count 3.58 mill/uL (4.70-6.10); White Blood Cell (WBC) Count 8.5 thou/uL (4.8-10.8)
[2022-02-24 22:03] LABS: ALT (SGPT) 10 U/L (8-55); AST (SGOT) 10 U/L (5-34); Alkaline Phosphatase 87 U/L (40-110); Anion Gap 18 mmol/L (10-20); BUN (Urea Nitrogen) 55 mg/dL (8.4-25.7); Calc. Creatinine Clearance 22 mL/min (70-130); Calcium 9.1 mg/dL (7.8-10.44); Carbon Dioxide 22 mmol/L (22-29); Chloride 102 mmol/L (98-107); Globulin 3.3 g/dL (2.4-3.5); Glucose 94 mg/dL (70-105); Potassium 4.8 mmol/L (3.5-5.1); Protein, Total 7.3 g/dL (6.0-8.3); Sodium 137 mmol/L (136-145)
[2022-02-25] MEDS ORDERED: Doxycycline 100 MG in Syringe 0 ML IVPB SCH (00:44)
[2022-02-25] MEDS ORDERED: cefTRIAXone\\ROCEPHIN 1 GM in Sodium Chloride 0.9% 100 ML IVPB SCH (00:45)
[2022-02-25] MEDS ORDERED: Doxycycline 100 MG in Sodium Chloride 0.9% 100 ML IVPB SCH (01:00)
[2022-02-25] MEDS: Azithromycin 500 MG in Sodium Chloride 0.9% 250 ML 250 ML IVPB SCH (01:17)
[2022-02-25 03:37] LABS: #Lymphocytes 0.4 thou/uL (1.20-3.40); #Monocytes 0.1 thou/uL (0.11-0.59); #Neutrophils 4.8 thou/uL (1.40-6.50); %Eosinophils 0.7 % (0.0-10.0); %Monocytes 1.1 % (0.0-10.0); %Neutrophils 91.2 % (42.0-75.0); Mean Corpuscular HGB CONC 32.2 g/dL (32.0-36.0); Mean Corpuscular Hemoglobin 27.9 pg (27.0-31.0); Mean Corpuscular Volume 86.4 fL (78.0-98.0); Mean Platelet Volume 5.7 fL (7.4-10.4); Platelet Count 146 thou/uL (130-400); RBC Distribution Width 16.8 % (11.5-14.5); Red Blood Cell (RBC) Count 3.22 mill/uL (4.70-6.10); White Blood Cell (WBC) Count 5.2 thou/uL (4.8-10.8)
[2022-02-25 03:52] LABS: Anion Gap 19 mmol/L (10-20); BUN (Urea Nitrogen) 54 mg/dL (8.4-25.7); Calc. Creatinine Clearance 24 mL/min (70-130); Calcium 8.7 mg/dL (7.8-10.44); Carbon Dioxide 20 mmol/L (22-29); Chloride 99 mmol/L (98-107); Glucose 118 mg/dL (70-105); Potassium 4.7 mmol/L (3.5-5.1); Sodium 133 mmol/L (136-145)
[2022-02-25] MEDS: cefTRIAXone\\ROCEPHIN 1 GM in Sodium Chloride 0.9% 100 ML IVPB SCH (07:31)
[2022-02-25] MEDS: Dextrose 5% in Water 1,000 ML IV SCH (07:34)
[2022-02-25] MEDS: HYDROmorphone 0.5 MG/0.5 ML SYRINGE SLOW IVP PRN ×3 (11:09→20:09)
[2022-02-25] MEDS: methylPREDNISolone Sod Succ 40 MG VIAL IVP SCH ×2 (11:39→17:15)
[2022-02-25] MEDS ORDERED: Gabapentin 300 MG CAP PO SCH (12:00)
[2022-02-25] MEDS: Ondansetron ODT 4 MG TAB SL PRN ×2 (12:38→18:32)
[2022-02-25] MEDS ORDERED: Iopamidol-370 76% 500 ML 1 ML ONE (13:30)
[2022-02-25] MEDS ORDERED: Carvedilol 25 MG TAB PO SCH (16:00)
[2022-02-25 16:58] LABS: Magnesium 1.6 mg/dL (1.6-2.6)
[2022-02-25] MEDS ORDERED: Magnesium 2 GM/50 ML(in water) 2 GM in Premix Bag 1 BAG IVPB SCH (17:15)
[2022-02-25 17:25] LABS: SARS-CoV-2 PCR by NAA Not Detected (NotDetected)
[2022-02-25] MEDS: Carvedilol 25 MG TAB PO SCH (20:06)
[2022-02-26] MEDS: methylPREDNISolone Sod Succ 40 MG VIAL IVP SCH ×2 (00:24→05:12)
[2022-02-26] MEDS: Azithromycin 500 MG in Sodium Chloride 0.9% 250 ML 250 ML IVPB SCH (00:24)
[2022-02-26] MEDS: HYDROmorphone 0.5 MG/0.5 ML SYRINGE SLOW IVP PRN ×6 (00:36→22:09)
[2022-02-26 03:34] LABS: #Lymphocytes 0.3 thou/uL (1.20-3.40); #Monocytes 0.1 thou/uL (0.11-0.59); #Neutrophils 3.6 thou/uL (1.40-6.50); %Basophils 0.7 % (0.0-1.0); %Eosinophils 0.2 % (0.0-10.0); %Lymphocytes 7.9 % (21.0-51.0); %Monocytes 2.6 % (0.0-10.0); %Neutrophils 88.6 % (42.0-75.0); Hemoglobin 8.3 g/dL (14.0-18.0); Mean Corpuscular HGB CONC 31.9 g/dL (32.0-36.0); Mean Corpuscular Hemoglobin 27.3 pg (27.0-31.0); Mean Corpuscular Volume 85.8 fL (78.0-98.0); Mean Platelet Volume 5.8 fL (7.4-10.4); Platelet Count 140 thou/uL (130-400); RBC Distribution Width 16.2 % (11.5-14.5); Red Blood Cell (RBC) Count 3.03 mill/uL (4.70-6.10); White Blood Cell (WBC) Count 4.1 thou/uL (4.8-10.8)
[2022-02-26 03:54] LABS: Anion Gap 13 mmol/L (10-20); BUN (Urea Nitrogen) 30 mg/dL (8.4-25.7); Calc. Creatinine Clearance 42 mL/min (70-130); Calcium 8.8 mg/dL (7.8-10.44); Carbon Dioxide 28 mmol/L (22-29); Chloride 98 mmol/L (98-107); Glucose 111 mg/dL (70-105); Potassium 4.5 mmol/L (3.5-5.1); Sodium 134 mmol/L (136-145)
[2022-02-26 04:45] LABS: Magnesium 2.1 mg/dL (1.6-2.6)
[2022-02-26] MEDS: cefTRIAXone\\ROCEPHIN 1 GM in Sodium Chloride 0.9% 100 ML IVPB SCH (05:42)
[2022-02-26] MEDS: Carvedilol 25 MG TAB PO SCH ×2 (09:25→22:09)
[2022-02-26] MEDS: Ondansetron ODT 4 MG TAB SL PRN (12:35)
[2022-02-26] MEDS ORDERED: Nicotine 21 MG PATCH TD SCH (20:15)
[2022-02-26] MEDS: HORIZANT 600 MG PO SCH (22:08)
[2022-02-27] MEDS: Azithromycin 500 MG in Sodium Chloride 0.9% 250 ML 250 ML IVPB SCH (02:13)
[2022-02-27] MEDS: HYDROmorphone 0.5 MG/0.5 ML SYRINGE SLOW IVP PRN (02:13)
[2022-02-27 05:20] LABS: #Lymphocytes 0.8 thou/uL (1.20-3.40); #Monocytes 0.3 thou/uL (0.11-0.59); #Neutrophils 3.8 thou/uL (1.40-6.50); %Basophils 0.2 % (0.0-1.0); %Eosinophils 0.4 % (0.0-10.0); %Lymphocytes 16.6 % (21.0-51.0); %Monocytes 6.3 % (0.0-10.0); %Neutrophils 76.6 % (42.0-75.0); Mean Corpuscular Hemoglobin 26.9 pg (27.0-31.0); Mean Corpuscular Volume 86.6 fL (78.0-98.0); Platelet Count 158 thou/uL (130-400); RBC Distribution Width 16.4 % (11.5-14.5); Red Blood Cell (RBC) Count 3.35 mill/uL (4.70-6.10)
[2022-02-27 05:45] LABS: Anion Gap 13 mmol/L (10-20); BUN (Urea Nitrogen) 43 mg/dL (8.4-25.7); Calc. Creatinine Clearance 33 mL/min (70-130); Calcium 8.6 mg/dL (7.8-10.44); Carbon Dioxide 27 mmol/L (22-29); Chloride 98 mmol/L (98-107); Glucose 83 mg/dL (70-105); Potassium 4.2 mmol/L (3.5-5.1); Sodium 134 mmol/L (136-145)
[2022-02-27] MEDS ORDERED: Bupivacaine 0.25% 10 ML VIAL ONE (06:50)
[2022-02-27] MEDS ORDERED: EPINEPHrine 1 MG/ML AMP ONE (06:50)
[2022-02-27] MEDS ORDERED: Fentanyl 100 MCG/2 ML VIAL ONE (06:51)
[2022-02-27] MEDS ORDERED: Midazolam HCl 2 mg/2 ml Vial ONE (06:51)
[2022-02-27] MEDS ORDERED: Sodium Chloride 0.9% 100 ML ONE (06:56)
[2022-02-27] MEDS ORDERED: cefTRIAXone\\ROCEPHIN 1 GM VIAL ONE (06:56)
[2022-02-27] MEDS: cefTRIAXone\\ROCEPHIN 1 GM in Sodium Chloride 0.9% 100 ML IVPB SCH (07:01)
[2022-02-27] MEDS ORDERED: Ondansetron PF 4 MG/2 ML Vial ONE ×2 (07:03→07:29)
[2022-02-27] MEDS ORDERED: SUGAMMADEX SODIUM 200 MG/2 ML VIAL ONE ×2 (07:19→08:43)
[2022-02-27] MEDS ORDERED: Ketamine 50 MG/ML (10ML VIAL) ONE (07:19)
[2022-02-27] MEDS ORDERED: Famotidine/PF 20 mg/2ml Vial ONE (07:19)
[2022-02-27] MEDS ORDERED: Rocuronium Bromide 10 MG/ML (10ML VIAL) ONE (07:29)
[2022-02-27] MEDS ORDERED: PROPOFOL 200 MG/20 ML VIAL ONE (07:29)
[2022-02-27] MEDS ORDERED: Lidocaine 1% PF 5 ML VIAL ONE (07:29)
[2022-02-27] MEDS ORDERED: predniSONE 20 MG TAB PO SCH (08:00)
[2022-02-27] MEDS ORDERED: Dexamethasone 10 MG/ML VIAL SLOW IVP SCH ×2 (09:00→15:30)
[2022-02-27] MEDS ORDERED: Prevnar 13-Val Conj/PF 0.5 ML SYRINGE IM ONE (09:00)
[2022-02-27] MEDS ORDERED: HYDROmorphone 2 MG/ML VIAL SLOW IVP PRN (09:17)
[2022-02-27] MEDS ORDERED: Ondansetron HCl/PF 4 MG/2 ML Vial IVP PRN (09:17)
[2022-02-27] MEDS ORDERED: Promethazine HCl 25 MG/ML VIAL IVPB PRN (09:17)
[2022-02-27] MEDS ORDERED: Promethazine HCl 25 MG/ML VIAL IM PRN (09:17)
[2022-02-27] MEDS ORDERED: HYDROmorphone 2 MG/ML VIAL ONE (09:28)
[2022-02-27] MEDS ORDERED: HYDROmorphone 0.5 MG/0.5 ML SYRINGE SLOW IVP PRN (11:01)
[2022-02-27] MEDS ORDERED: HYDROmorphone 0.5 MG/0.5 ML SYRINGE SLOW IVP SCH (13:00)
[2022-02-27] MEDS ORDERED: Dexamethasone 4 mg/ml Vial SLOW IVP SCH (15:00)
[2022-02-27] MEDS: Gabapentin 100 MG CAP PO SCH ×2 (15:01→20:23)
[2022-02-27] MEDS: Nicotine 21 MG PATCH TD SCH (15:03)
[2022-02-27] MEDS: Carvedilol 25 MG TAB PO SCH ×2 (15:03→20:22)
[2022-02-27] MEDS: HYDROcodone/Acetaminophen 10/325 mg Tablet PO PRN (20:21)
[2022-02-27] MEDS: levETIRAcetam in NS 500 MG in Premix Bag 1 BAG IVPB SCH (20:22)
[2022-02-27] MEDS: Atorvastatin Calcium 10 MG TAB PO SCH (20:23)
[2022-02-27] MEDS: HORIZANT 600 MG PO SCH (20:28)
[2022-02-27] MEDS: Fentanyl 100 MCG/2 ML VIAL SLOW IVP PRN (22:45)
[2022-02-28] MEDS: Azithromycin 500 MG in Sodium Chloride 0.9% 250 ML 250 ML IVPB SCH (01:27)
[2022-02-28] MEDS: HYDROcodone/Acetaminophen 10/325 mg Tablet PO PRN ×2 (03:27→11:34)
[2022-02-28 05:18] LABS: #Lymphocytes 0.5 thou/uL (1.20-3.40); #Monocytes 0.3 thou/uL (0.11-0.59); #Neutrophils 3.9 thou/uL (1.40-6.50); %Eosinophils 0.2 % (0.0-10.0); %Lymphocytes 10.7 % (21.0-51.0); %Neutrophils 83.1 % (42.0-75.0); Hemoglobin 8.8 g/dL (14.0-18.0); Mean Corpuscular HGB CONC 32.2 g/dL (32.0-36.0); Mean Corpuscular Hemoglobin 27.5 pg (27.0-31.0); Mean Corpuscular Volume 85.6 fL (78.0-98.0); Mean Platelet Volume 5.7 fL (7.4-10.4); Platelet Count 123 thou/uL (130-400); RBC Distribution Width 15.9 % (11.5-14.5); White Blood Cell (WBC) Count 4.6 thou/uL (4.8-10.8)
[2022-02-28] MEDS: Fentanyl 100 MCG/2 ML VIAL SLOW IVP PRN ×4 (05:34→23:19)
[2022-02-28] MEDS: cefTRIAXone\\ROCEPHIN 1 GM in Sodium Chloride 0.9% 100 ML IVPB SCH (05:35)
[2022-02-28 05:38] LABS: Anion Gap 13 mmol/L (10-20); BUN (Urea Nitrogen) 51 mg/dL (8.4-25.7); Calc. Creatinine Clearance 30 mL/min (70-130); Calcium 8.6 mg/dL (7.8-10.44); Carbon Dioxide 27 mmol/L (22-29); Chloride 101 mmol/L (98-107); Glucose 97 mg/dL (70-105); Potassium 5.2 mmol/L (3.5-5.1); Sodium 136 mmol/L (136-145)
[2022-02-28] MEDS: Gabapentin 100 MG CAP PO SCH ×3 (08:46→20:56)
[2022-02-28] MEDS: Nicotine 21 MG PATCH TD SCH (08:47)
[2022-02-28] MEDS: levETIRAcetam in NS 500 MG in Premix Bag 1 BAG IVPB SCH ×2 (08:47→20:55)
[2022-02-28] MEDS ORDERED: Dexamethasone 4 mg/ml Vial SLOW IVP SCH (09:00)
[2022-02-28] MEDS: Carvedilol 25 MG TAB PO SCH ×2 (12:51→20:57)
[2022-02-28] MEDS: Epoetin (ESRD) 10,000 UNITS/ML VIAL SC SCH (14:25)
[2022-02-28] MEDS: Dexamethasone 4 mg/ml Vial SLOW IVP SCH (14:26)
[2022-02-28] MEDS: Ondansetron ODT 4 MG TAB SL PRN (15:24)
[2022-02-28] MEDS: Atorvastatin Calcium 10 MG TAB PO SCH (21:04)
[2022-02-28] MEDS: HORIZANT 600 MG PO SCH (21:04)
[2022-03-01] MEDS: Azithromycin 500 MG in Sodium Chloride 0.9% 250 ML 250 ML IVPB SCH (02:38)
[2022-03-01] MEDS: Fentanyl 100 MCG/2 ML VIAL SLOW IVP PRN ×5 (03:57→22:59)
[2022-03-01] MEDS: cefTRIAXone\\ROCEPHIN 1 GM in Sodium Chloride 0.9% 100 ML IVPB SCH (05:49)
[2022-03-01] MEDS: Carvedilol 25 MG TAB PO SCH ×2 (08:26→22:01)
[2022-03-01] MEDS: Gabapentin 100 MG CAP PO SCH ×3 (08:26→22:02)
[2022-03-01] MEDS: levETIRAcetam in NS 500 MG in Premix Bag 1 BAG IVPB SCH ×2 (08:27→22:00)
[2022-03-01] MEDS: Nicotine 21 MG PATCH TD SCH (08:29)
[2022-03-01] MEDS: Dexamethasone 4 mg/ml Vial SLOW IVP SCH (14:05)
[2022-03-01] MEDS ORDERED: Clindamycin/D5W 900 MG in Premix Bag 1 BAG IVPB SCH (14:45)
[2022-03-01 16:04] LABS: INR-International Normal Ratio 1.2; PTT 30.9 sec (22.9-36.1)
[2022-03-01] MEDS ORDERED: Budesonide 0.5 MG/2 ML NEB NEB SCH (19:30)
[2022-03-01] MEDS: HORIZANT 600 MG PO SCH (22:03)
[2022-03-01] MEDS: Atorvastatin Calcium 10 MG TAB PO SCH (22:04)
[2022-03-02] MEDS: Azithromycin 500 MG in Sodium Chloride 0.9% 250 ML 250 ML IVPB SCH (00:36)
[2022-03-02] MEDS: Fentanyl 100 MCG/2 ML VIAL SLOW IVP PRN ×4 (04:11→20:17)
[2022-03-02 05:08] LABS: #Lymphocytes 0.7 thou/uL (1.20-3.40); #Monocytes 0.4 thou/uL (0.11-0.59); #Neutrophils 4.4 thou/uL (1.40-6.50); %Basophils 0.2 % (0.0-1.0); %Eosinophils 0.7 % (0.0-10.0); %Lymphocytes 12.9 % (21.0-51.0); %Monocytes 7.3 % (0.0-10.0); %Neutrophils 78.9 % (42.0-75.0); Hemoglobin 8.8 g/dL (14.0-18.0); Mean Corpuscular HGB CONC 33.2 g/dL (32.0-36.0); Mean Corpuscular Hemoglobin 28.2 pg (27.0-31.0); Mean Platelet Volume 6.2 fL (7.4-10.4); Platelet Count 142 thou/uL (130-400); RBC Distribution Width 15.8 % (11.5-14.5); Red Blood Cell (RBC) Count 3.11 mill/uL (4.70-6.10); White Blood Cell (WBC) Count 5.6 thou/uL (4.8-10.8)
[2022-03-02 05:32] LABS: Anion Gap 14 mmol/L (10-20); BUN (Urea Nitrogen) 46 mg/dL (8.4-25.7); Calc. Creatinine Clearance 36 mL/min (70-130); Calcium 8.6 mg/dL (7.8-10.44); Carbon Dioxide 24 mmol/L (22-29); Chloride 103 mmol/L (98-107); Glucose 88 mg/dL (70-105); Potassium 4.5 mmol/L (3.5-5.1); Sodium 136 mmol/L (136-145)
[2022-03-02] MEDS ORDERED: Bacitracin Zinc Ointment 30 gm TUBE ONE (06:10)
[2022-03-02] MEDS ORDERED: Lidocaine 0.5%/Epinephrine 1:200,000 50 ml Vial ONE (06:10)
[2022-03-02] MEDS ORDERED: Thrombin 5000 UNITS/5 ML VIAL ONE (06:10)
[2022-03-02] MEDS ORDERED: Neomycin-Polymyxin 1 ML AMP ONE ×2 (06:10→09:24)
[2022-03-02] MEDS ORDERED: Lidocaine 1% MPF 2 ML VIAL ONE (06:26)
[2022-03-02] MEDS ORDERED: Albumin 5% 250 ML ONE (06:29)
[2022-03-02] MEDS ORDERED: Fentanyl 250 MCG/5 ML VIAL ONE (06:29)
[2022-03-02] MEDS ORDERED: Propofol 1,000 MG/100 ML VIAL IV ONE (06:30)
[2022-03-02] MEDS ORDERED: Ondansetron PF 4 MG/2 ML Vial IVP PRN (06:34)
[2022-03-02] MEDS ORDERED: Promethazine HCl 25 MG/ML VIAL IM PRN ×2 (06:34→12:06)
[2022-03-02] MEDS ORDERED: Clindamycin/D5W 900 mg/50 ml Premix Bag ONE (07:00)
[2022-03-02] MEDS ORDERED: Levofloxacin 500 mg/D5W 100 ml Premix Bag ONE (07:00)
[2022-03-02] MEDS ORDERED: Dexmedetomidine 200 MCG/2 ML VIAL ONE (07:00)
[2022-03-02] MEDS ORDERED: Esmolol 100 MG/10 ML VIAL ONE (07:13)
[2022-03-02] MEDS ORDERED: Lidocaine 1% PF 5 ML VIAL ONE ×2 (07:13)
[2022-03-02] MEDS ORDERED: PROPOFOL 200 MG/20 ML VIAL ONE (07:13)
[2022-03-02] MEDS ORDERED: Rocuronium Bromide 10 MG/ML (10ML VIAL) ONE (07:13)
[2022-03-02] MEDS ORDERED: Dexamethasone 20 MG/5 ML VIAL ONE (07:13)
[2022-03-02] MEDS ORDERED: SUGAMMADEX SODIUM 200 MG/2 ML VIAL ONE (11:09)
[2022-03-02] MEDS: Budesonide 0.5 MG/2 ML NEB NEB SCH ×2 (11:13→19:19)
[2022-03-02] MEDS ORDERED: Promethazine HCl 25 MG/ML VIAL IVPB PRN (12:06)
[2022-03-02] MEDS ORDERED: Ondansetron HCl/PF 4 MG/2 ML Vial IVP PRN (12:06)
[2022-03-02] MEDS ORDERED: Fentanyl 100 MCG/2 ML VIAL ONE (12:43)
[2022-03-02] MEDS: hydrALAZINE 20 MG/ML VIAL SLOW IVP PRN ×3 (13:29→18:20)
[2022-03-02] MEDS: Nicotine 21 MG PATCH TD SCH (13:33)
[2022-03-02] MEDS: Sodium Chloride 0.9% 1,000 ML IV SCH ×2 (13:33→20:30)
[2022-03-02] MEDS: Clindamycin/D5W 900 MG in Premix Bag 1 BAG IVPB SCH ×3 (13:33→18:09)
[2022-03-02] MEDS: levETIRAcetam in NS 500 MG in Premix Bag 1 BAG IVPB SCH ×2 (13:38→19:59)
[2022-03-02] MEDS: Gabapentin 100 MG CAP PO SCH ×3 (13:38→19:59)
[2022-03-02] MEDS: cefTRIAXone\\ROCEPHIN 1 GM in Sodium Chloride 0.9% 100 ML IVPB SCH (13:38)
[2022-03-02] MEDS: Carvedilol 25 MG TAB PO SCH ×3 (13:38→19:58)
[2022-03-02] MEDS: Dexamethasone 4 mg/ml Vial SLOW IVP SCH (14:55)
[2022-03-02] MEDS: HYDROcodone/Acetaminophen 10/325 mg Tablet PO PRN (18:05)
[2022-03-02] MEDS: Ondansetron ODT 4 MG TAB SL PRN (18:10)
[2022-03-02] MEDS ORDERED: Ondansetron PF 4 MG/2 ML Vial SLOW IVP PRN (18:41)
[2022-03-02] MEDS: Atorvastatin Calcium 10 MG TAB PO SCH (19:58)
[2022-03-02] MEDS: HORIZANT 600 MG PO SCH (20:00)
[2022-03-02] MEDS: Lorazepam 2 MG/ML VIAL SLOW IVP PRN (20:18)
[2022-03-02] MEDS: Labetalol HCl 100 MG/20 ML VIAL SLOW IVP PRN (20:33)
[2022-03-03] MEDS: Fentanyl 100 MCG/2 ML VIAL SLOW IVP PRN ×9 (00:55→22:18)
[2022-03-03] MEDS: Labetalol HCl 100 MG/20 ML VIAL SLOW IVP PRN (01:00)
[2022-03-03] MEDS: Azithromycin 500 MG in Sodium Chloride 0.9% 250 ML 250 ML IVPB SCH (01:02)
[2022-03-03] MEDS: Lorazepam 2 MG/ML VIAL SLOW IVP PRN (02:45)
[2022-03-03] MEDS: cefTRIAXone\\ROCEPHIN 1 GM in Sodium Chloride 0.9% 100 ML IVPB SCH (05:37)
[2022-03-03] MEDS: Nicotine 21 MG PATCH TD SCH (07:12)
[2022-03-03] MEDS: Budesonide 0.5 MG/2 ML NEB NEB SCH ×2 (07:28→19:08)
[2022-03-03 07:49] LABS: #Lymphocytes 0.7 thou/uL (1.20-3.40); #Monocytes 0.5 thou/uL (0.11-0.59); #Neutrophils 5.9 thou/uL (1.40-6.50); %Eosinophils 0.3 % (0.0-10.0); %Lymphocytes 10.2 % (21.0-51.0); %Monocytes 6.4 % (0.0-10.0); %Neutrophils 83.1 % (42.0-75.0); Hemoglobin 8.7 g/dL (14.0-18.0); Mean Corpuscular HGB CONC 30.9 g/dL (32.0-36.0); Mean Corpuscular Hemoglobin 26.9 pg (27.0-31.0); Mean Corpuscular Volume 87.1 fL (78.0-98.0); Mean Platelet Volume 6.4 fL (7.4-10.4); Platelet Count 136 thou/uL (130-400); RBC Distribution Width 15.7 % (11.5-14.5); Red Blood Cell (RBC) Count 3.22 mill/uL (4.70-6.10); White Blood Cell (WBC) Count 7.1 thou/uL (4.8-10.8)
[2022-03-03 08:05] LABS: Anion Gap 16 mmol/L (10-20); BUN (Urea Nitrogen) 53 mg/dL (8.4-25.7); Calc. Creatinine Clearance 34 mL/min (70-130); Calcium 8.7 mg/dL (7.8-10.44); Carbon Dioxide 22 mmol/L (22-29); Chloride 105 mmol/L (98-107); Glucose 83 mg/dL (70-105); Potassium 4.7 mmol/L (3.5-5.1); Sodium 138 mmol/L (136-145)
[2022-03-03] MEDS: levETIRAcetam in NS 500 MG in Premix Bag 1 BAG IVPB SCH ×2 (09:04→20:23)
[2022-03-03] MEDS: Gabapentin 100 MG CAP PO SCH ×3 (09:04→20:21)
[2022-03-03] MEDS: Carvedilol 25 MG TAB PO SCH ×2 (09:05→20:23)
[2022-03-03 09:58] LABS: Hep B Surf Ag Non-Reactive S/CO (NonReactive)
[2022-03-03] MEDS: Sodium Chloride 0.9% 1,000 ML IV SCH ×2 (10:54→21:49)
[2022-03-03] MEDS: Bisacodyl 10 MG SUPP PR SCH ×2 (13:52→22:18)
[2022-03-03] MEDS ORDERED: Melatonin 3 MG TAB PO SCH (20:15)
[2022-03-03] MEDS: Senokot S 8.6-50 MG TAB PO SCH (20:22)
[2022-03-03] MEDS: Atorvastatin Calcium 10 MG TAB PO SCH (20:23)
[2022-03-03] MEDS: HORIZANT 600 MG PO SCH (20:27)
[2022-03-04] MEDS: Fentanyl 100 MCG/2 ML VIAL SLOW IVP PRN ×8 (01:01→22:33)
[2022-03-04] MEDS: Azithromycin 500 MG in Sodium Chloride 0.9% 250 ML 250 ML IVPB SCH (01:06)
[2022-03-04] MEDS: cefTRIAXone\\ROCEPHIN 1 GM in Sodium Chloride 0.9% 100 ML IVPB SCH (05:32)
[2022-03-04] MEDS: Bisacodyl 10 MG SUPP PR SCH (05:32)
[2022-03-04 05:38] LABS: Anion Gap 11 mmol/L (10-20); BUN (Urea Nitrogen) 56 mg/dL (8.4-25.7); Calc. Creatinine Clearance 32 mL/min (70-130); Calcium 8.3 mg/dL (7.8-10.44); Carbon Dioxide 23 mmol/L (22-29); Chloride 107 mmol/L (98-107); Glucose 78 mg/dL (70-105); Potassium 4.3 mmol/L (3.5-5.1); Sodium 137 mmol/L (136-145)
[2022-03-04 05:46] LABS: #Eosinphils 0.1 thou/uL (0.0-0.7); #Monocytes 0.4 thou/uL (0.11-0.59); #Neutrophils 4.4 thou/uL (1.40-6.50); %Basophils 0.1 % (0.0-1.0); %Eosinophils 1.1 % (0.0-10.0); %Lymphocytes 16.6 % (21.0-51.0); %Monocytes 6.5 % (0.0-10.0); %Neutrophils 75.7 % (42.0-75.0); Hemoglobin 8.4 g/dL (14.0-18.0); Mean Corpuscular HGB CONC 31.5 g/dL (32.0-36.0); Mean Corpuscular Hemoglobin 27.4 pg (27.0-31.0); Mean Corpuscular Volume 86.8 fL (78.0-98.0); Mean Platelet Volume 6.4 fL (7.4-10.4); Platelet Count 134 thou/uL (130-400); Red Blood Cell (RBC) Count 3.08 mill/uL (4.70-6.10); White Blood Cell (WBC) Count 5.9 thou/uL (4.8-10.8)
[2022-03-04] MEDS: Budesonide 0.5 MG/2 ML NEB NEB SCH ×2 (07:29→18:59)
[2022-03-04] MEDS: Nicotine 21 MG PATCH TD SCH (08:11)
[2022-03-04] MEDS: levETIRAcetam in NS 500 MG in Premix Bag 1 BAG IVPB SCH ×2 (08:12→20:32)
[2022-03-04] MEDS ORDERED: HYDROcodone/Acetaminophen 10/325 mg Tablet PO PRN (08:14)
[2022-03-04] MEDS: Gabapentin 100 MG CAP PO SCH ×3 (08:27→20:31)
[2022-03-04] MEDS: Polyethylene Glycol 3350 17 GM Packet PO SCH (08:31)
[2022-03-04] MEDS: Senokot S 8.6-50 MG TAB PO SCH ×2 (08:31→20:30)
[2022-03-04] MEDS: HYDROcodone/Acetaminophen 10/325 mg Tablet PO PRN ×2 (10:26→20:31)
[2022-03-04] MEDS: Carvedilol 25 MG TAB PO SCH ×2 (14:10→20:30)
[2022-03-04] MEDS: Sodium Chloride 0.9% 1,000 ML IV SCH (15:18)
[2022-03-04] MEDS: Labetalol HCl 100 MG/20 ML VIAL SLOW IVP PRN (15:24)
[2022-03-04 16:09] LABS: SARS-CoV-2 PCR by NAA Not Detected (NotDetected)
[2022-03-04] MEDS ORDERED: methylPREDNISolone Sod Succ/PF 125 MG/2 ML VIAL IVP SCH (16:45)
[2022-03-04] MEDS ORDERED: Prochlorperazine Edisylate 10 MG in Sodium Chloride 0.9% 50 ML IVPB SCH (16:45)
[2022-03-04] MEDS ORDERED: Acetaminophen 650 MG/20.3 ML UDCUP PO SCH ×2 (17:00→23:59)
[2022-03-04] MEDS ORDERED: Valproate Sodium 500 MG in Sodium Chloride 0.9% 100 ML IVPB SCH (19:30)
[2022-03-04] MEDS: HORIZANT 600 MG PO SCH (20:30)
[2022-03-04] MEDS: Atorvastatin Calcium 10 MG TAB PO SCH (20:31)
[2022-03-05] MEDS: Fentanyl 100 MCG/2 ML VIAL SLOW IVP PRN ×9 (02:14→23:27)
[2022-03-05] MEDS: HYDROcodone/Acetaminophen 10/325 mg Tablet PO PRN ×2 (03:33→10:34)
[2022-03-05] MEDS: Acetaminophen 325 MG TAB PO SCH ×5 (05:19→23:29)
[2022-03-05] MEDS: Budesonide 0.5 MG/2 ML NEB NEB SCH ×2 (07:36→18:55)
[2022-03-05] MEDS: Cefdinir 300 MG CAP PO SCH (08:17)
[2022-03-05] MEDS: Carvedilol 25 MG TAB PO SCH ×2 (08:17→20:36)
[2022-03-05] MEDS: Gabapentin 100 MG CAP PO SCH ×3 (08:18→20:35)
[2022-03-05] MEDS: Polyethylene Glycol 3350 17 GM Packet PO SCH (08:19)
[2022-03-05] MEDS: levETIRAcetam in NS 500 MG in Premix Bag 1 BAG IVPB SCH ×2 (08:19→20:36)
[2022-03-05] MEDS: Senokot S 8.6-50 MG TAB PO SCH ×2 (08:19→21:44)
[2022-03-05] MEDS: Nicotine 21 MG PATCH TD SCH (08:22)
[2022-03-05] MEDS: Atorvastatin Calcium 10 MG TAB PO SCH (20:36)
[2022-03-05] MEDS: HORIZANT 600 MG PO SCH (20:40)
[2022-03-06] MEDS: Fentanyl 100 MCG/2 ML VIAL SLOW IVP PRN ×6 (03:57→23:58)
[2022-03-06 05:19] LABS: #Monocytes 0.3 thou/uL (0.11-0.59); #Neutrophils 3.5 thou/uL (1.40-6.50); %Basophils 0.6 % (0.0-1.0); %Eosinophils 0.9 % (0.0-10.0); %Lymphocytes 20.1 % (21.0-51.0); %Monocytes 6.1 % (0.0-10.0); %Neutrophils 72.3 % (42.0-75.0); Hemoglobin 8.3 g/dL (14.0-18.0); Mean Corpuscular HGB CONC 32.5 g/dL (32.0-36.0); Mean Corpuscular Hemoglobin 28.1 pg (27.0-31.0); Mean Corpuscular Volume 86.3 fL (78.0-98.0); Mean Platelet Volume 6.3 fL (7.4-10.4); Platelet Count 126 thou/uL (130-400); RBC Distribution Width 15.3 % (11.5-14.5); Red Blood Cell (RBC) Count 2.94 mill/uL (4.70-6.10); White Blood Cell (WBC) Count 4.8 thou/uL (4.8-10.8)
[2022-03-06] MEDS: Acetaminophen 325 MG TAB PO SCH ×3 (05:34→18:47)
[2022-03-06 05:38] LABS: Anion Gap 12 mmol/L (10-20); BUN (Urea Nitrogen) 41 mg/dL (8.4-25.7); Calc. Creatinine Clearance 34 mL/min (70-130); Calcium 8.4 mg/dL (7.8-10.44); Carbon Dioxide 25 mmol/L (22-29); Chloride 101 mmol/L (98-107); Glucose 83 mg/dL (70-105); Potassium 4.4 mmol/L (3.5-5.1); Sodium 134 mmol/L (136-145)
[2022-03-06 05:39] LABS: Phosphorus 4.3 mg/dL (2.3-4.7)
[2022-03-06] MEDS: Budesonide 0.5 MG/2 ML NEB NEB SCH ×2 (06:56→19:10)
[2022-03-06] MEDS: Polyethylene Glycol 3350 17 GM Packet PO SCH (08:43)
[2022-03-06] MEDS: levETIRAcetam in NS 500 MG in Premix Bag 1 BAG IVPB SCH ×2 (08:43→20:42)
[2022-03-06] MEDS: Gabapentin 100 MG CAP PO SCH ×3 (08:43→20:40)
[2022-03-06] MEDS: Carvedilol 25 MG TAB PO SCH ×2 (08:44→20:41)
[2022-03-06] MEDS: Cefdinir 300 MG CAP PO SCH (08:45)
[2022-03-06] MEDS: Nicotine 21 MG PATCH TD SCH (08:45)
[2022-03-06] MEDS: Senokot S 8.6-50 MG TAB PO SCH ×2 (08:46→21:35)
[2022-03-06] MEDS: Atorvastatin Calcium 10 MG TAB PO SCH (20:41)
[2022-03-06] MEDS: HORIZANT 600 MG PO SCH (21:01)
[2022-03-07] MEDS: Acetaminophen 325 MG TAB PO SCH ×4 (00:46→18:09)
[2022-03-07] MEDS: Fentanyl 100 MCG/2 ML VIAL SLOW IVP PRN ×3 (03:26→17:20)
[2022-03-07 05:54] LABS: #Eosinphils 0.1 thou/uL (0.0-0.7); #Lymphocytes 1.2 thou/uL (1.20-3.40); #Monocytes 0.3 thou/uL (0.11-0.59); #Neutrophils 3.2 thou/uL (1.40-6.50); %Basophils 0.9 % (0.0-1.0); %Eosinophils 1.9 % (0.0-10.0); %Lymphocytes 24.1 % (21.0-51.0); %Monocytes 6.4 % (0.0-10.0); %Neutrophils 66.7 % (42.0-75.0); Hemoglobin 8.4 g/dL (14.0-18.0); Mean Corpuscular HGB CONC 32.7 g/dL (32.0-36.0); Mean Corpuscular Hemoglobin 28.1 pg (27.0-31.0); Mean Corpuscular Volume 85.9 fL (78.0-98.0); Mean Platelet Volume 6.3 fL (7.4-10.4); Platelet Count 121 thou/uL (130-400); RBC Distribution Width 15.3 % (11.5-14.5); Red Blood Cell (RBC) Count 2.99 mill/uL (4.70-6.10); White Blood Cell (WBC) Count 4.8 thou/uL (4.8-10.8)
[2022-03-07 06:18] LABS: Anion Gap 12 mmol/L (10-20); BUN (Urea Nitrogen) 47 mg/dL (8.4-25.7); Calc. Creatinine Clearance 30 mL/min (70-130); Calcium 8.2 mg/dL (7.8-10.44); Carbon Dioxide 25 mmol/L (22-29); Chloride 102 mmol/L (98-107); Glucose 80 mg/dL (70-105); Potassium 4.2 mmol/L (3.5-5.1); Sodium 135 mmol/L (136-145)
[2022-03-07] MEDS: Budesonide 0.5 MG/2 ML NEB NEB SCH ×2 (08:07→19:18)
[2022-03-07] MEDS: Polyethylene Glycol 3350 17 GM Packet PO SCH (08:45)
[2022-03-07] MEDS: Cefdinir 300 MG CAP PO SCH (08:45)
[2022-03-07] MEDS: Gabapentin 100 MG CAP PO SCH ×4 (08:45→20:41)
[2022-03-07] MEDS: levETIRAcetam 500 MG/5 ML VIAL SLOW IVP SCH ×2 (08:47→20:39)
[2022-03-07] MEDS: Nicotine 21 MG PATCH TD SCH (08:48)
[2022-03-07] MEDS: Senokot S 8.6-50 MG TAB PO SCH ×2 (08:49→20:45)
[2022-03-07] MEDS: Carvedilol 25 MG TAB PO SCH ×3 (13:34→20:37)
[2022-03-07] MEDS: Epoetin (ESRD) 10,000 UNITS/ML VIAL SC SCH (14:13)
[2022-03-07] MEDS ORDERED: Bisacodyl 10 MG SUPP PR PRN (16:03)
[2022-03-07] MEDS: Labetalol HCl 100 MG/20 ML VIAL SLOW IVP PRN (16:47)
[2022-03-07] MEDS: Clindamycin/D5W 600 MG in Premix Bag 1 BAG IVPB SCH (17:05)
[2022-03-07] MEDS: hydrALAZINE 20 MG/ML VIAL SLOW IVP PRN (18:04)
[2022-03-07] MEDS: Atorvastatin Calcium 10 MG TAB PO SCH ×2 (20:33→20:42)
[2022-03-07] MEDS: HORIZANT 600 MG PO SCH (20:44)
[2022-03-08] MEDS: Fentanyl 100 MCG/2 ML VIAL SLOW IVP PRN (00:03)
[2022-03-08] MEDS: Clindamycin/D5W 600 MG in Premix Bag 1 BAG IVPB SCH ×4 (02:07→20:37)
[2022-03-08] MEDS: Acetaminophen 325 MG TAB PO SCH ×4 (02:29→17:08)
[2022-03-08] MEDS: Budesonide 0.5 MG/2 ML NEB NEB SCH ×2 (07:17→23:21)
[2022-03-08] MEDS ORDERED: levETIRAcetam in NS 100 ML IVPB SCH (09:00)
[2022-03-08] MEDS ORDERED: Iopamidol 370 76% 100 ML VIAL ONE (09:10)
[2022-03-08] MEDS: Senokot S 8.6-50 MG TAB PO SCH ×2 (09:25→20:38)
[2022-03-08] MEDS: Nicotine 21 MG PATCH TD SCH (09:26)
[2022-03-08] MEDS: Polyethylene Glycol 3350 17 GM Packet PO SCH (09:26)
[2022-03-08] MEDS: Calcitriol 0.25 MCG CAP PO SCH (09:26)
[2022-03-08] MEDS: levETIRAcetam 500 MG/5 ML VIAL SLOW IVP SCH (10:56)
[2022-03-08] MEDS: levETIRAcetam in NS 500 MG in Premix Bag 1 BAG IVPB SCH ×2 (10:58→22:36)
[2022-03-08] MEDS ORDERED: fentaNYL 75 mcg/hour Patch TD SCH (14:00)
[2022-03-08] MEDS: Gabapentin 100 MG CAP PO SCH ×2 (17:09→20:38)
[2022-03-08] MEDS: HORIZANT 600 MG PO SCH (20:39)
[2022-03-08] MEDS: Carvedilol 25 MG TAB PO SCH (20:41)
[2022-03-08] MEDS: Atorvastatin Calcium 10 MG TAB PO SCH (20:42)
[2022-03-08] MEDS ORDERED: Budesonide 0.5 MG/2 ML NEB ONE (23:19)
[2022-03-09] MEDS: Acetaminophen 325 MG TAB PO SCH ×3 (00:29→13:31)
[2022-03-09] MEDS: hydrALAZINE 20 MG/ML VIAL SLOW IVP PRN (00:30)
[2022-03-09] MEDS: Clindamycin/D5W 600 MG in Premix Bag 1 BAG IVPB SCH ×3 (01:44→14:24)
[2022-03-09 05:31] LABS: Anion Gap 13 mmol/L (10-20); BUN (Urea Nitrogen) 42 mg/dL (8.4-25.7); Calc. Creatinine Clearance 41 mL/min (70-130); Calcium 8.5 mg/dL (7.8-10.44); Carbon Dioxide 25 mmol/L (22-29); Chloride 100 mmol/L (98-107); Glucose 76 mg/dL (70-105); Potassium 4.3 mmol/L (3.5-5.1); Sodium 134 mmol/L (136-145)
[2022-03-09 05:31] LABS: #Eosinphils 0.1 thou/uL (0.0-0.7); #Lymphocytes 1.2 thou/uL (1.20-3.40); #Monocytes 0.5 thou/uL (0.11-0.59); #Neutrophils 3.1 thou/uL (1.40-6.50); %Basophils 0.5 % (0.0-1.0); %Eosinophils 1.7 % (0.0-10.0); %Lymphocytes 24.6 % (21.0-51.0); %Neutrophils 63.1 % (42.0-75.0); Hemoglobin 8.4 g/dL (14.0-18.0); Mean Corpuscular HGB CONC 32.8 g/dL (32.0-36.0); Mean Corpuscular Hemoglobin 27.9 pg (27.0-31.0); Mean Corpuscular Volume 85.1 fL (78.0-98.0); Mean Platelet Volume 6.3 fL (7.4-10.4); Platelet Count 115 thou/uL (130-400); RBC Distribution Width 15.2 % (11.5-14.5); Red Blood Cell (RBC) Count 2.99 mill/uL (4.70-6.10); White Blood Cell (WBC) Count 4.9 thou/uL (4.8-10.8)
[2022-03-09] MEDS: Budesonide 0.5 MG/2 ML NEB NEB SCH (07:44)
[2022-03-09 09:18] VITALS: BMI 29.7
[2022-03-09] MEDS: Polyethylene Glycol 3350 17 GM Packet PO SCH (13:27)
[2022-03-09] MEDS: levETIRAcetam in NS 500 MG in Premix Bag 1 BAG IVPB SCH (13:27)
[2022-03-09] MEDS: Nicotine 21 MG PATCH TD SCH (13:27)
[2022-03-09] MEDS: Carvedilol 25 MG TAB PO SCH (13:30)
[2022-03-09] MEDS: Senokot S 8.6-50 MG TAB PO SCH (13:31)
[2022-03-09] MEDS: Gabapentin 100 MG CAP PO SCH ×2 (13:32→14:51)
[2022-03-09] MEDS: Calcitriol 0.25 MCG CAP PO SCH (13:32)
[2022-03-09] MEDS ORDERED: Nicotine 21 MG PATCH TD SCH (14:00)
[2022-03-09 16:52] VITALS: BP 113/72; TEMP 97.3
== END 2022-03-09 18:15 | DRG 25 ==
LOC: ERS 15:59 → CCU 17:45 → NEURO 02-26 16:10 → CCU 03-02 07:01 → NEURO 03-03 11:57
PROVIDERS: ADMIT Internal Medicine; ATTEND Internal Medicine
PROC: 5A1D70Z Performance of Urinary Filtration, Intermittent, Less than 6 Hours Per Day (ICD-10-PCS; 2022-02-25)
PROC: 07B74ZX Excision of Thorax Lymphatic, Percutaneous Endoscopic Approach, Diagnostic (ICD-10-PCS; 2022-02-27)
PROC: 00C70ZZ Extirpation of Matter from Cerebral Hemisphere, Open Approach (ICD-10-PCS; principal; 2022-03-02)
DX: S06.5X0A Traumatic subdural hemorrhage without loss of consciousness, initial encounter (principal); G93.6 Cerebral edema; N18.6 End stage renal disease; G93.5 Compression of brain; J18.9 Pneumonia, unspecified organism; I12.0 Hypertensive chronic kidney disease with stage 5 chronic kidney disease or end stage renal disease; J44.1 Chronic obstructive pulmonary disease with (acute) exacerbation; E87.1 Hypo-osmolality and hyponatremia; G81.91 Hemiplegia, unspecified affecting right dominant side; R18.8 Other ascites; I25.810 Atherosclerosis of coronary artery bypass graft(s) without angina pectoris; N45.4 Abscess of epididymis or testis; J44.0 Chronic obstructive pulmonary disease with (acute) lower respiratory infection; W19.XXXA Unspecified fall, initial encounter; Z20.822 Contact with and (suspected) exposure to COVID-19; G35 Multiple sclerosis; H54.8 Legal blindness, as defined in USA; F17.210 Nicotine dependence, cigarettes, uncomplicated; E78.5 Hyperlipidemia, unspecified; S06.360A Traumatic hemorrhage of cerebrum, unspecified, without loss of consciousness, initial encounter; D64.9 Anemia, unspecified; R59.0 Localized enlarged lymph nodes; D32.0 Benign neoplasm of cerebral meninges; G93.89 Other specified disorders of brain; I48.0 Paroxysmal atrial fibrillation; Z99.2 Dependence on renal dialysis; Z28.311 Partially vaccinated for COVID-19; Z95.1 Presence of aortocoronary bypass graft; Z90.49 Acquired absence of other specified parts of digestive tract; Z88.2 Allergy status to sulfonamides; Z88.0 Allergy status to penicillin; Z88.5 Allergy status to narcotic agent; Z88.8 Allergy status to other drugs, medicaments and biological substances; Z79.899 Other long term (current) drug therapy; Z79.82 Long term (current) use of aspirin; Z79.01 Long term (current) use of anticoagulants; Z79.51 Long term (current) use of inhaled steroids
CPT/HCPCS: 36415; 36416; 36600; 70450; 70492; 70551; 71045; 71250; 71260; 72193; 74177; 80048; 82805; 83605; 83735; 83970; 84100; 84443; 85025; 85610; 85730; 86850; 86900; 86901; 87070; 87205; 87340; 88305; 88307; 88331; 88334; 88341; 88342; 90935; 93970; 94640; 95712; 95819; 95957; 96374; C1713; C1776; C1876; G0257; J0171; J0360; J0456; J0696; J0780; J1100; J1170; J1642; J1953; J1956; J2001; J2060; J2250; J2405; J2704; J2920; J2930; J3010; J3370; J3475; J3490; J7050; J7070; J7620; J7626; P9045; Q0162; Q4081; Q9967; S0020; S0028; U0003; U0005

== ENCOUNTER 2022-03-22 07:52 | Outpatient (CLI) | payer MEDICARE, OTHER | END 2022-03-22 07:53 | disposition home or self-care (01) | LOC: CT 07:52 | PROVIDERS: ATTEND Physical Medicine & Rehabilitation | DX: Z48.811 Encounter for surgical aftercare following surgery on the nervous system (principal); I63.9 Cerebral infarction, unspecified; Z98.890 Other specified postprocedural states | CPT/HCPCS: 70450 ==

== ENCOUNTER 2022-04-27 07:53 | Outpatient (CLI) | payer MEDICARE, OTHER | END 2022-04-27 07:54 | disposition home or self-care (01) | LOC: BICMRI 07:53 | PROVIDERS: ATTEND Neurological Surgery | DX: S06.351D Traumatic hemorrhage of left cerebrum with loss of consciousness of 30 minutes or less, subsequent encounter (principal); Z98.890 Other specified postprocedural states | CPT/HCPCS: 70553; 82565 ==

== ENCOUNTER 2022-07-20 07:45 | Outpatient (CLI) | payer OTHER, MEDICARE | END 2022-07-20 07:46 | disposition home or self-care (01) | LOC: SCSMRI 07:45 | PROVIDERS: ATTEND Neurological Surgery | DX: S06.351D Traumatic hemorrhage of left cerebrum with loss of consciousness of 30 minutes or less, subsequent encounter (principal) | CPT/HCPCS: 70553; 82565 ==

== ENCOUNTER 2022-07-21 13:31 | Emergency (ER) | payer OTHER, MEDICARE | END 2022-07-21 15:53 | disposition home or self-care (01) | LOC: ERS 13:31 | DX: R22.41 Localized swelling, mass and lump, right lower limb (principal); I25.10 Atherosclerotic heart disease of native coronary artery without angina pectoris; I48.91 Unspecified atrial fibrillation; I10 Essential (primary) hypertension; Z87.891 Personal history of nicotine dependence; Z79.899 Other long term (current) drug therapy ==

== ENCOUNTER 2024-09-22 15:43 | Outpatient (CLI) | payer MEDICARE, OTHER | END 2024-09-22 15:44 | disposition home or self-care (01) | LOC: SCSRAD 15:43 | PROVIDERS: ATTEND Family Medicine | DX: M25.512 Pain in left shoulder (principal); M25.552 Pain in left hip; M19.012 Primary osteoarthritis, left shoulder ==

== ENCOUNTER 2024-11-03 14:18 | Outpatient (CLI) | payer MEDICARE, OTHER | END 2024-11-03 14:19 | disposition home or self-care (01) | LOC: SCSRAD 14:18 | PROVIDERS: ATTEND Family Medicine | DX: J98.01 Acute bronchospasm (principal); J22 Unspecified acute lower respiratory infection | CPT/HCPCS: 71046 ==

== ENCOUNTER 2024-11-14 11:55 | Emergency (ER) | payer MEDICARE, OTHER ==
[2024-11-14] MEDS ORDERED: Magnesium 2 GM/50 ML BAG (IN WATER) ONE (12:51)
[2024-11-14] MEDS ORDERED: Dexamethasone 10 MG/ML VIAL ONE (12:51)
[2024-11-14] MEDS ORDERED: Ondansetron PF 4 MG/2 ML Vial ONE (13:04)
[2024-11-14 13:27] LABS: Troponin I 0.018 ng/mL (< 0.028)
[2024-11-14 13:30] LABS: ALT (SGPT) 71 U/L (8-55); AST (SGOT) 18 U/L (5-34); Albumin 3.2 g/dL (3.5-5.0); Alkaline Phosphatase 111 U/L (40-110); Anion Gap 14 mmol/L (10-20); BUN (Urea Nitrogen) 29 mg/dL (8.4-25.7); Bilirubin, Total 0.8 mg/dL (0.2-1.2); Calc. Creatinine Clearance 0 mL/min (70-130); Calcium 9.2 mg/dL (7.8-10.44); Carbon Dioxide 26 mmol/L (22-29); Chloride 101 mmol/L (98-107); Estimated GFR 27; Globulin 3.3 g/dL (2.4-3.5); Glucose 96 mg/dL (70-105); Potassium 3.9 mmol/L (3.5-5.1); Protein, Total 6.5 g/dL (6.0-8.3); Sodium 137 mmol/L (136-145)
[2024-11-14 13:37] LABS: Actual Bicarbonate (HCO3v) 24.2 mEq/L (22-28); Analyzer IN Cardio ER; Base Excess 1.7 mEq/L (-2.0 to +3.0); Calcium, Ionized (venous) 1.13 mmol/L (1.16-1.32); Chloride (VBG) 99 mmol/L (98-106); Hematocrit-VBG 33 % (42.0-52.0); Hemoglobin (Hb) 11.1 g/dL (13.1-17.2); Potassium (VBG) 3.87 mmol/L (3.70-5.30); Sodium 137 mmol/L (133-146); pH (venous) 7.514 (7.32-7.43)
[2024-11-14 13:47] LABS: Macrocytosis SLIGHT = 6-15 cells HPF (0-5); Platelet Adequacy Comment Platelets Decreased; Polychromasia SLIGHT = 2-3 cells HPF (0-2)
[2024-11-14 13:48] LABS: #Basophils 0.04 10x3/uL (0.0-0.2); %Basophils 0.3 % (0.0-1.0); %Eosinophils 2.3 % (0.0-10.0); %Lymphocytes 17.1 % (21.0-51.0); %Monocytes 5.8 % (0.0-10.0); %Neutrophils 72.9 % (42.0-75.0); Hematocrit 30.3 % (42.0-52.0); Hemoglobin 10.4 g/dL (14.0-18.0); Mean Corpuscular HGB CONC 34.3 g/dL (32.0-36.0); Mean Corpuscular Hemoglobin 31.3 pg (27.0-31.0); Mean Corpuscular Volume 91.3 fL (78.0-98.0); Mean Platelet Volume 8.5 fL (7.4-10.4); Platelet Count 111 10x3/uL (130-400); RBC Distribution Width 13.8 % (11.5-14.5); Red Blood Cell (RBC) Count 3.32 mill/uL (4.70-6.10)
[2024-11-14] MEDS ORDERED: Ipratropium/Albuterol 3 ML NEB ONE (14:59)
[2024-11-14 16:51] LABS: Bacteria/HPF None Seen HPF (None Seen); Bilirubin Negative (Negative); Blood, Urine Negative (Negative); CAUTI Indications for Culture Dysuria,urgency,freq; Clarity Clear (Clear); Glucose, Urine (Dipstick) Normal (Negative); Ketone, Urine Negative (Negative); Leukocyte Negative Leu/uL (Negative); Nitrite Negative (Negative); Protein, Urine (Dipstick) 200 mg/dL (Neg-Trace); RBC/HPF 0-3 HPF (0-3); Specific Gravity, Urine 1.015 (1.002-1.036); Squamous Epithelial 0-3 HPF (0-3); Urobilinogen Normal mg/dL (Less than 2); WBC/HPF 0-3 HPF (0-3)
[2024-11-14 16:57] LABS: Urine Culture Reflex No No
[2024-11-14 17:25] LABS: HBSAB Concentration Less than 8.00 mIU/mL; HBsAg Index 0.22 S/CO (0-0.99); Hep B Surf AB NONREACTIVE (NonReactive); Hep B Surf Ag NONREACTIVE S/CO (NonReactive)
[2024-11-14 17:26] LABS: Hep C IgG Ab NONREACTIVE S/CO (NonReactive); Hep C Index 0.07 S/CO (0-0.79)
[2024-11-14 18:43] LABS: Hep B Core Total Ab NONREACTIVE (NonReactive); Hep B Core Total Index 0.14 S/CO (0-0.79)
== END 2024-11-14 23:29 | disposition home or self-care (01) ==
LOC: ERS 11:55
DX: I13.2 Hypertensive heart and chronic kidney disease with heart failure and with stage 5 chronic kidney disease, or end stage renal disease (principal); N18.6 End stage renal disease; I50.9 Heart failure, unspecified; E87.70 Fluid overload, unspecified; Z87.891 Personal history of nicotine dependence
CPT/HCPCS: 71045; 80053; 81001; 82805; 83605; 83880; 84484; 85025; 86704; 86706; 86803; 87340; 93005; J1100; J2405; J3475; 36415; J7620

== ENCOUNTER 2024-11-25 03:42 | Inpatient (IN) | payer MEDICARE, OTHER ==
[2024-11-25 04:53] LABS: Actual Bicarbonate (HCO3v) 24.7 mEq/L (22-28); Analyzer IN Cardio ER; Base Excess -0.8 mEq/L (-2.0 to +3.0); Calcium, Ionized (venous) 1.22 mmol/L (1.16-1.32); Chloride (VBG) 91 mmol/L (98-106); Hematocrit-VBG 37 % (42.0-52.0); Hemoglobin (Hb) 12.6 g/dL (13.1-17.2); Potassium (VBG) 4.29 mmol/L (3.70-5.30); Sodium 130 mmol/L (133-146); pH (venous) 7.365 (7.32-7.43)
[2024-11-25 05:10] LABS: #Basophils 0.05 10x3/uL (0.0-0.2); %Basophils 0.3 % (0.0-1.0); %Eosinophils 0.3 % (0.0-10.0); %Lymphocytes 7.2 % (21.0-51.0); %Monocytes 3.6 % (0.0-10.0); %Neutrophils 87.8 % (42.0-75.0); Hematocrit 34.2 % (42.0-52.0); Hemoglobin 11.2 g/dL (14.0-18.0); Mean Corpuscular HGB CONC 32.7 g/dL (32.0-36.0); Mean Corpuscular Hemoglobin 29.9 pg (27.0-31.0); Mean Corpuscular Volume 91.4 fL (78.0-98.0); Mean Platelet Volume 8.4 fL (7.4-10.4); Platelet Count 170 10x3/uL (130-400); RBC Distribution Width 13.8 % (11.5-14.5); Red Blood Cell (RBC) Count 3.74 mill/uL (4.70-6.10)
[2024-11-25] MEDS ORDERED: Piperacillin/Tazobactam 3.375 GM VIAL ONE (05:21)
[2024-11-25] MEDS ORDERED: Furosemide 40 MG (4 mL) VIAL ONE (05:21)
[2024-11-25] MEDS ORDERED: Sodium Chloride 0.9% 100 ML ONE (05:21)
[2024-11-25 05:26] LABS: ALT (SGPT) 10 U/L (8-55); AST (SGOT) 8 U/L (5-34); Albumin 2.7 g/dL (3.5-5.0); Alkaline Phosphatase 125 U/L (40-110); Anion Gap 21 mmol/L (10-20); BUN (Urea Nitrogen) 76 mg/dL (8.4-25.7); Bilirubin, Total 0.7 mg/dL (0.2-1.2); Calc. Creatinine Clearance 0 mL/min (70-130); Calcium 9.4 mg/dL (7.8-10.44); Carbon Dioxide 24 mmol/L (22-29); Chloride 92 mmol/L (98-107); Estimated GFR 9; Globulin 4.1 g/dL (2.4-3.5); Glucose 135 mg/dL (70-105); Lipase 10 U/L (8-78); Magnesium 3.1 mg/dL (1.6-2.6); Potassium 4.5 mmol/L (3.5-5.1); Protein, Total 6.8 g/dL (6.0-8.3); Sodium 132 mmol/L (136-145)
[2024-11-25 05:31] LABS: Troponin I 0.022 ng/mL (< 0.028)
[2024-11-25 06:10] LABS: INR-International Normal Ratio 2.2; Prothrombin Time 24.8 sec (12.0-14.7)
[2024-11-25 06:11] LABS: PTT 61.6 sec (22.9-36.1)
[2024-11-25] MEDS ORDERED: Azithromycin 500 MG VIAL ONE (06:30)
[2024-11-25] MEDS ORDERED: Ondansetron PF 4 MG/2 ML Vial IVP PRN (07:09)
[2024-11-25] MEDS ORDERED: Senokot S 8.6-50 MG TAB PO PRN (07:09)
[2024-11-25] MEDS ORDERED: Calcium Carbonate 500 MG ChewTAB PO PRN (07:09)
[2024-11-25 08:34] VITALS: BMI 24.3
[2024-11-25] MEDS ORDERED: Heparin 10,000 UNITS/ 10 ML VIAL ONE (09:42)
[2024-11-25 09:59] LABS: Troponin I 0.025 ng/mL (< 0.028)
[2024-11-25 11:48] LABS: Troponin I 0.025 ng/mL (< 0.028)
[2024-11-25] MEDS ORDERED: Piperacillin/Tazobactam 3.375 GM in Sodium Chloride 0.9% 100 ML IVPB SCH (12:00)
[2024-11-25] MEDS: Ipratropium/Albuterol 3 ML NEB NEB PRN (13:14)
[2024-11-25] MEDS: Ipratropium Bromide 2.5 ml Neb NEB SCH (13:14)
[2024-11-25 14:04] LABS: Actual Bicarbonate (HCO3a) 26.4 mEq/L (22-28); Base Excess (BEa) 4.3 mEq/L (-2.0 to +3.0); CO2 Tension 31.6 mmHg (35.0-45.0); Carboxyhemoglobin (COHb) 0.8 gm% (0.0-3.0); Hematocrit-ABG 38 % (42.0-52.0); Hemoglobin (Hb) 12.9 g/dL (14.0-18.0); Potassium - ABG Lab 4.14 mmol/L (3.70-5.30)
[2024-11-25 14:05] LABS: O2 Tension (PaO2), arterial 55.4 mmHg (80.0-100.0); Puncture Site Left Radial artery
[2024-11-25 15:09] LABS: Actual Bicarbonate (HCO3a) 27.7 mEq/L (22-28); Base Excess (BEa) 2.1 mEq/L (-2.0 to +3.0); CO2 Tension 47.6 mmHg (35.0-45.0); Calcium, Ionized (arterial) 1.22 mmol/L (1.12-1.30); Carboxyhemoglobin (COHb) 0.5 gm% (0.0-3.0); Hematocrit-ABG 36 % (42.0-52.0); Hemoglobin (Hb) 12.1 g/dL (14.0-18.0); Potassium - ABG Lab 4.19 mmol/L (3.70-5.30); Puncture Site Left Radial artery; pH, Arterial 7.383 (7.35-7.45)
[2024-11-25] MEDS: Calcitriol 0.25 MCG CAP PO SCH (15:44)
[2024-11-25] MEDS ORDERED: DISCONTINUE PREVIOUS NARCOTIC PAIN MEDICATIONS AND BENZODIAZEPINES FS SCH (15:45)
[2024-11-25] MEDS: Pantoprazole 40 MG DR.TAB PO SCH (15:45)
[2024-11-25] MEDS ORDERED: Propofol BOLUS 1,000 MG/100 ML VIAL IV PRN (15:45)
[2024-11-25] MEDS ORDERED: Fentanyl BOLUS 250 ML IVPB PRN (15:45)
[2024-11-25] MEDS: levETIRAcetam 500 MG TAB PO SCH (15:45)
[2024-11-25] MEDS: Gabapentin 100 MG CAP PO SCH (15:45)
[2024-11-25] MEDS: Lorazepam 2 MG/ML VIAL SLOW IVP PRN (15:56)
[2024-11-25] MEDS: Midazolam HCl 2 mg/2 ml Vial ONE (15:57)
[2024-11-25] MEDS: Piperacillin/Tazobactam 3.375 GM in Sodium Chloride 0.9% 100 ML IVPB SCH (16:00)
[2024-11-25] MEDS: Non-Formulary Item 1 EACH (Tiotropium Bromide [Spiriva Handihaler] 18 MCG Cap.W.Dev) IH SCH (16:00)
[2024-11-25] MEDS: Propofol 1,000 MG/100 ML VIAL IV ONE (16:00)
[2024-11-25] MEDS: Fentanyl CADD 100 ML IV SCH (16:48)
[2024-11-25] MEDS: Sevelamer Carbonate 800 MG TAB PO SCH (17:39)
[2024-11-25] MEDS: Ipratropium/Albuterol 3 ML NEB NEB SCH (18:57)
[2024-11-25] MEDS: Atorvastatin Calcium 10 MG TAB PO SCH (20:27)
[2024-11-25] MEDS: Carvedilol 25 MG TAB PO SCH (20:27)
[2024-11-25] MEDS: Apixaban 2.5 MG TAB PO SCH (20:27)
[2024-11-26] MEDS: Propofol 1,000 MG/100 ML VIAL IV PRN (01:50)
[2024-11-26 05:35] LABS: #Basophils 0.03 10x3/uL (0.0-0.2); %Basophils 0.2 % (0.0-1.0); %Eosinophils 0.2 % (0.0-10.0); %Lymphocytes 11.4 % (21.0-51.0); %Monocytes 5.9 % (0.0-10.0); %Neutrophils 79.9 % (42.0-75.0); Hematocrit 33.9 % (42.0-52.0); Hemoglobin 10.6 g/dL (14.0-18.0); Mean Corpuscular HGB CONC 31.3 g/dL (32.0-36.0); Mean Corpuscular Hemoglobin 29.9 pg (27.0-31.0); Mean Corpuscular Volume 95.8 fL (78.0-98.0); Mean Platelet Volume 9.1 fL (7.4-10.4); Platelet Count 189 10x3/uL (130-400); RBC Distribution Width 13.9 % (11.5-14.5); Red Blood Cell (RBC) Count 3.54 mill/uL (4.70-6.10)
[2024-11-26 06:27] LABS: ALT (SGPT) 24 U/L (8-55); AST (SGOT) 31 U/L (5-34); Albumin 2.4 g/dL (3.5-5.0); Alkaline Phosphatase 130 U/L (40-110); Anion Gap 23 mmol/L (10-20); BUN (Urea Nitrogen) 59 mg/dL (8.4-25.7); Bilirubin, Total 0.6 mg/dL (0.2-1.2); Calc. Creatinine Clearance 14 mL/min (70-130); Calcium 9.8 mg/dL (7.8-10.44); Carbon Dioxide 23 mmol/L (22-29); Chloride 98 mmol/L (98-107); Estimated GFR 11; Globulin 5.1 g/dL (2.4-3.5); Glucose 112 mg/dL (70-105); Magnesium 2.9 mg/dL (1.6-2.6); Protein, Total 7.5 g/dL (6.0-8.3); Sodium 139 mmol/L (136-145)
[2024-11-26] MEDS: Amlodipine 10 MG TAB PO SCH (09:25)
[2024-11-26] MEDS: Gabapentin 300 MG CAP PO SCH (09:31)
[2024-11-26] MEDS: Azithromycin 500 MG in Sodium Chloride 0.9% 250 ML 250 ML IVPB SCH (09:31)
[2024-11-26] MEDS: Acetaminophen 325 MG TAB PO PRN (09:38)
[2024-11-26] MEDS: EPOETIN ALFA-EPBX (ESRD) 10,000 UNITS/ML VIAL SC SCH (11:37)
[2024-11-26] MEDS: methylPREDNISolone Sod Succ 40 MG VIAL IVP SCH ×2 (11:37→20:19)
[2024-11-26 14:19] VITALS: BP 96/63
[2024-11-26] MEDS: GUAIFENESIN SF SOLN 200 MG/10 ML UDCUP PO SCH (16:46)
[2024-11-26] MEDS: Glycopyrrolate 1 MG TAB PO SCH (20:19)
[2024-11-27 07:29] LABS: Chloride 96 mmol/L (98-107); Potassium 5.8 mmol/L (3.5-5.1); Sodium 139 mmol/L (136-145)
[2024-11-27 07:30] LABS: Hematocrit 33.9 % (42.0-52.0); Hemoglobin 10.6 g/dL (14.0-18.0); Mean Corpuscular HGB CONC 31.3 g/dL (32.0-36.0); Mean Corpuscular Hemoglobin 29.8 pg (27.0-31.0); Mean Corpuscular Volume 95.2 fL (78.0-98.0); Mean Platelet Volume 9.2 fL (7.4-10.4); Platelet Count 211 10x3/uL (130-400); RBC Distribution Width 13.7 % (11.5-14.5); Red Blood Cell (RBC) Count 3.56 mill/uL (4.70-6.10)
[2024-11-27 07:32] LABS: Anion Gap 26 mmol/L (10-20); BUN (Urea Nitrogen) 105 mg/dL (8.4-25.7); Calc. Creatinine Clearance 10 mL/min (70-130); Calcium 9.7 mg/dL (7.8-10.44); Carbon Dioxide 23 mmol/L (22-29); Estimated GFR 8; Glucose 123 mg/dL (70-105)
[2024-11-27 08:02] LABS: Lymphocytes 12 % (21-51); Monocytes 6 % (0-10); Neutrophil 79 % (42-75); Ovalocytes SLIGHT = 2-5 cells HPF (0-1); Platelet Adequacy Comment Platelets Normal; Polychromasia SLIGHT = 2-3 cells HPF (0-2); Promyelocytes 2 % (0-0); Reactive Lymphocytes 1 % (0-10)
[2024-11-27] MEDS ORDERED: Heparin 10,000 UNITS/ 10 ML VIAL ONE (08:51)
[2024-11-27] MEDS: Enoxaparin 30 MG (0.3 mL) SYRINGE SC SCH (09:20)
[2024-11-27] MEDS: Albumin 25% 25 GM (100 mL) BOT IVPB SCH (09:22)
[2024-11-27] MEDS: Pantoprazole 40 MG VIAL IVP SCH (09:24)
[2024-11-27] MEDS ORDERED: Vancomycin Hemodialysis Sliding Scale FS SCH (17:00)
[2024-11-27] MEDS: VANCOMYCIN 1.25 GM/250 ML BAG 1.25 GM in Premix 1 BAG IVPB SCH (18:10)
[2024-11-28 05:06] LABS: Hematocrit 31.1 % (42.0-52.0); Hemoglobin 9.9 g/dL (14.0-18.0); Mean Corpuscular HGB CONC 31.8 g/dL (32.0-36.0); Mean Corpuscular Hemoglobin 30.1 pg (27.0-31.0); Mean Corpuscular Volume 94.5 fL (78.0-98.0); Mean Platelet Volume 9.1 fL (7.4-10.4); Platelet Count 196 10x3/uL (130-400); RBC Distribution Width 13.7 % (11.5-14.5); Red Blood Cell (RBC) Count 3.29 mill/uL (4.70-6.10)
[2024-11-28 05:24] LABS: Anion Gap 23 mmol/L (10-20); BUN (Urea Nitrogen) 70 mg/dL (8.4-25.7); Calc. Creatinine Clearance 14 mL/min (70-130); Calcium 9.9 mg/dL (7.8-10.44); Carbon Dioxide 23 mmol/L (22-29); Chloride 96 mmol/L (98-107); Estimated GFR 12; Glucose 129 mg/dL (70-105); Potassium 4.7 mmol/L (3.5-5.1); Sodium 137 mmol/L (136-145)
[2024-11-28 05:26] LABS: Band 4 % (5-11); Hypochromia SLIGHT = 6-15 cells HPF (0-5); Lymphocytes 11 % (21-51); Metamyelocyte 1 % (0-0); Monocytes 5 % (0-10); Myelocyte 2 % (0-0); Neutrophil 74 % (42-75); Nucleated RBC (Manual Ct) 1 % (0); Platelet Adequacy Comment Platelets Normal; Polychromasia SLIGHT = 2-3 cells HPF (0-2); Promyelocytes 1 % (0-0); Reactive Lymphocytes 3 % (0-10)
[2024-11-28] MEDS: SYSTANE GEL OPHTH DROPS 10 ML EA EYE PRN (08:54)
[2024-11-28] MEDS ORDERED: Calcium Carbonate 500 MG ChewTAB PER TUBE PRN (09:15)
[2024-11-28] MEDS ORDERED: Acetaminophen 650 MG/20.3 ML UDCUP PER TUBE PRN (09:20)
[2024-11-28] MEDS: methylPREDNISolone Sod Succ 40 MG VIAL IVP SCH (10:23)
[2024-11-28] MEDS: Sevelamer 2.4 GM PACKET PER TUBE SCH (14:51)
[2024-11-28 15:32] VITALS: BMI 24.2
[2024-11-28] MEDS: Gabapentin 100 MG CAP PER TUBE SCH (15:48)
[2024-11-28] MEDS: GUAIFENESIN SF SOLN 200 MG/10 ML UDCUP PER TUBE SCH (15:48)
[2024-11-28] MEDS: Atorvastatin Calcium 10 MG TAB PER TUBE SCH (21:24)
[2024-11-28] MEDS: levETIRAcetam 500 MG TAB PER TUBE SCH (21:25)
[2024-11-28] MEDS: Glycopyrrolate 1 MG TAB PER TUBE SCH (21:25)
[2024-11-29 04:17] LABS: Hematocrit 29.8 % (42.0-52.0); Hemoglobin 9.6 g/dL (14.0-18.0); Mean Corpuscular HGB CONC 32.2 g/dL (32.0-36.0); Mean Corpuscular Hemoglobin 29.8 pg (27.0-31.0); Mean Corpuscular Volume 92.5 fL (78.0-98.0); Mean Platelet Volume 8.9 fL (7.4-10.4); Platelet Count 186 10x3/uL (130-400); RBC Distribution Width 13.1 % (11.5-14.5); Red Blood Cell (RBC) Count 3.22 mill/uL (4.70-6.10)
[2024-11-29 04:29] LABS: Anion Gap 25 mmol/L (10-20); BUN (Urea Nitrogen) 106 mg/dL (8.4-25.7); Calc. Creatinine Clearance 12 mL/min (70-130); Calcium 9.8 mg/dL (7.8-10.44); Carbon Dioxide 23 mmol/L (22-29); Chloride 92 mmol/L (98-107); Estimated GFR 9; Glucose 129 mg/dL (70-105); Potassium 5.3 mmol/L (3.5-5.1); Sodium 135 mmol/L (136-145)
[2024-11-29 04:45] LABS: Band 4 % (5-11); Hypochromia SLIGHT = 6-15 cells HPF (0-5); Lymphocytes 20 % (21-51); Monocytes 7 % (0-10); Neutrophil 66 % (42-75); Nucleated RBC (Manual Ct) 1 % (0); Platelet Adequacy Comment Platelets Normal; Polychromasia SLIGHT = 2-3 cells HPF (0-2); Reactive Lymphocytes 3 % (0-10)
[2024-11-29 07:48] LABS: Vancomycin, Trough 16.7 ug/mL
[2024-11-29] MEDS: Gabapentin 300 MG CAP PER TUBE SCH (09:08)
[2024-11-29] MEDS ORDERED: Heparin 10,000 UNITS/ 10 ML VIAL ONE (12:31)
[2024-11-29] MEDS: Piperacillin/Tazobactam 3.375 GM in Sodium Chloride 0.9% 100 ML IVPB SCH (14:49)
[2024-11-29] MEDS: Vancomycin HCl 500 MG in Sodium Chloride 0.9% 100 ML IVPB SCH (16:16)
[2024-11-29] MEDS: levETIRAcetam 500 MG (5 mL) VIAL SLOW IVP SCH (20:49)
[2024-11-29] MEDS: DC Sedation Protocol FS ONE (20:50)
[2024-11-29] MEDS: Fleet Saline Enema 133 ML BOT PR SCH (21:13)
[2024-11-29] MEDS: Glycopyrrolate 0.2 MG/ML 5 ML SYRINGE SLOW IVP SCH (21:23)
[2024-11-29] MEDS: Glycopyrrolate 0.4 MG/ 2 ML VIAL SLOW IVP SCH (21:24)
[2024-11-30] MEDS: Piperacillin/Tazobactam 3.375 GM in Sodium Chloride 0.9% 100 ML IVPB SCH (02:30)
[2024-11-30 05:21] LABS: Hematocrit 34.5 % (42.0-52.0); Hemoglobin 11.4 g/dL (14.0-18.0); Mean Corpuscular Hemoglobin 29.9 pg (27.0-31.0); Mean Corpuscular Volume 90.6 fL (78.0-98.0); Mean Platelet Volume 8.8 fL (7.4-10.4); Platelet Count 216 10x3/uL (130-400); RBC Distribution Width 13.3 % (11.5-14.5); Red Blood Cell (RBC) Count 3.81 mill/uL (4.70-6.10)
[2024-11-30] MEDS: Glycopyrrolate 0.2 MG/ML 5 ML SYRINGE SLOW IVP SCH (05:37)
[2024-11-30 05:42] LABS: Anion Gap 23 mmol/L (10-20); BUN (Urea Nitrogen) 71 mg/dL (8.4-25.7); Calc. Creatinine Clearance 16 mL/min (70-130); Calcium 9.9 mg/dL (7.8-10.44); Carbon Dioxide 25 mmol/L (22-29); Chloride 95 mmol/L (98-107); Estimated GFR 13; Glucose 113 mg/dL (70-105); Potassium 4.2 mmol/L (3.5-5.1); Sodium 139 mmol/L (136-145)
[2024-11-30 05:46] LABS: Band 1 % (5-11); Hypochromia SLIGHT = 6-15 cells HPF (0-5); Lymphocytes 8 % (21-51); Metamyelocyte 2 % (0-0); Monocytes 6 % (0-10); Myelocyte 3 % (0-0); Neutrophil 78 % (42-75); Platelet Adequacy Comment Platelets Normal; Polychromasia SLIGHT = 2-3 cells HPF (0-2); Promyelocytes 1 % (0-0); Reactive Lymphocytes 1 % (0-10)
[2024-11-30] MEDS: Piperacillin/Tazobactam 3.375 GM VIAL ONE (08:13)
[2024-11-30] MEDS: fentaNYL 50 mcg/mL 1 mL Vial SLOW IVP PRN (11:00)
[2024-11-30] MEDS: fentaNYL 50 mcg/mL 1 mL Vial ONE (11:59)
[2024-12-01] MEDS ORDERED: Lorazepam 2 MG/ML VIAL SLOW IVP PRN (03:04)
[2024-12-01] MEDS ORDERED: fentaNYL 50 mcg/mL 1 mL Vial SLOW IVP SCH (03:15)
[2024-12-01] MEDS: HYDROmorphone 0.5 MG/0.5 ML SYRINGE SLOW IVP SCH (03:33)
[2024-12-01] MEDS: Lorazepam 2 MG/ML VIAL SLOW IVP SCH (03:33)
[2024-12-01 03:48] VITALS: TEMP 98.8
[2024-12-01] MEDS ORDERED: levETIRAcetam 500 MG (5 mL) VIAL SLOW IVP SCH (09:00)
[2024-12-02] MEDS ORDERED: levETIRAcetam 500 MG (5 mL) VIAL SLOW IVP SCH (17:00)
== END 2024-12-01 04:53 | disposition expired | DRG 208 ==
LOC: ERS 03:42 → IMCU/EMU 06:13 → CCU 14:11
PROVIDERS: ADMIT Internal Medicine; ATTEND Internal Medicine
PROC: 5A1D70Z Performance of Urinary Filtration, Intermittent, Less than 6 Hours Per Day (ICD-10-PCS; principal; 2024-11-25)
PROC: 5A1945Z Respiratory Ventilation, 24-96 Consecutive Hours (ICD-10-PCS; 2024-11-25)
PROC: 0BH18EZ Insertion of Endotracheal Airway into Trachea, Via Natural or Artificial Opening Endoscopic (ICD-10-PCS; 2024-11-25)
PROC: 4A133R1 Monitoring of Arterial Saturation, Peripheral, Percutaneous Approach (ICD-10-PCS; 2024-11-25)
PROC: 3E03329 Introduction of Other Anti-infective into Peripheral Vein, Percutaneous Approach (ICD-10-PCS; 2024-11-25)
PROC: 5A09457 Assistance with Respiratory Ventilation, 24-96 Consecutive Hours, Continuous Positive Airway Pressure (ICD-10-PCS; 2024-11-25)
PROC: 30233J1 Transfusion of Nonautologous Serum Albumin into Peripheral Vein, Percutaneous Approach (ICD-10-PCS; 2024-11-27)
DX: J15.211 Pneumonia due to Methicillin susceptible Staphylococcus aureus (principal); J96.01 Acute respiratory failure with hypoxia; N18.6 End stage renal disease; I13.0 Hypertensive heart and chronic kidney disease with heart failure and stage 1 through stage 4 chronic kidney disease, or unspecified chronic kidney disease; G81.91 Hemiplegia, unspecified affecting right dominant side; J69.0 Pneumonitis due to inhalation of food and vomit; Z66 Do not resuscitate; Z51.5 Encounter for palliative care; I50.9 Heart failure, unspecified; E78.5 Hyperlipidemia, unspecified; G40.909 Epilepsy, unspecified, not intractable, without status epilepticus; G35 Multiple sclerosis; I48.91 Unspecified atrial fibrillation; F12.10 Cannabis abuse, uncomplicated; F19.90 Other psychoactive substance use, unspecified, uncomplicated; J44.9 Chronic obstructive pulmonary disease, unspecified; Z88.2 Allergy status to sulfonamides; Z88.0 Allergy status to penicillin; Z88.5 Allergy status to narcotic agent; Z99.2 Dependence on renal dialysis; Z98.890 Other specified postprocedural states; Z90.49 Acquired absence of other specified parts of digestive tract; Z87.891 Personal history of nicotine dependence; E87.70 Fluid overload, unspecified; K59.00 Constipation, unspecified; B97.4 Respiratory syncytial virus as the cause of diseases classified elsewhere
CPT/HCPCS: 36415; 36600; 71045; 74018; 80048; 80053; 80202; 82805; 83605; 83690; 83735; 83880; 84145; 84484; 85025; 85610; 85730; 87040; 87070; 87077; 87186; 87205; 87633; 87798; 90935; 93005; 93306; 94002; 94003; 94640; 94660; 96365; 96375; G0257; J0456; J1171; J1644; J1650; J1940; J1953; J2060; J2250; J2470; J2543; J2704; J2919; J3010; J3370; J7050; J7620; P9047; Q5105